=== PATIENT | male | born 1960 | race Caucasian/White ===

== ENCOUNTER → 2016-06-11 | Outpatient (CLI) | payer OTHER ==
[~2016-06-11] MED LIST: AMIO400T PO; BACITAB3 PO; BISA5TAB7 PO; CIPR500T3 PO; CIPR500T89 PO; FENT1DIS34 TD; FLAG500T PO; FLUC100T PO; GABA300C3 PO; LEVS0.123 SL; LORA0.5T PO; MEGA625S PO; MINO50CA27 PO; MULTCAP PO; MYLI40DR PO; NEUP480I2 SC; PACE200T PO; PENT500C PO; PRED20TA PO; PROC10TA PO; PSEU30TA3 PO; SALI0.9I2 IV; SENN8.6T10 PO; SIME125C PO; SIME80TA PO; TYLE325T5 PO; VITMTA PO; ZOFR8TAB PO; ZOSY1INJ5 IV; ZYVO100T PO; [UNRECOGNIZED DRUG - CODE] IV; [UNRECOGNIZED DRUG - CODE] IV; [UNRECOGNIZED DRUG - CODE] IV
[2016-06-11 11:21] LABS: BASO # 0.1 K/mm3 (0.0-0.2); BASO % 0.6 % (0.0-1.0); EOS # 0.5 K/mm3 (0.0-0.50); LYMPH % 10.5 % (24.0-44.0); MEAN CORPUSCULAR HGB CONC 33.4 g/dl (32.0-36.5); MEAN CORPUSCULAR VOLUME 86.9 fl (80.0-96.0); MONO # 0.5 K/mm3 (0.0-0.8); MONO % 5.3 % (0.0-5.0); NEUTROPHILS # 7.1 K/mm3 (1.8-7.7); NEUTROPHILS % 74.8 % (36.0-66.0); RED CELL DISTRIBUTION WIDTH 14.2 % (11.5-14.5); WHITE BLOOD COUNT 9.6 K/mm3 (4.0-10.0)
[2016-06-11 11:55] LABS: CARCINOEMBRYONIC ANTIGEN 6.3 NG/ML (<2.5)
[2016-06-11 12:06] LABS: ALBUMIN 3.9 GM/DL (3.2-5.2); ALBUMIN/GLOBULIN RATIO 1.11 (1.00-1.93); ALKALINE PHOSPHATASE 198 U/L (45-117); ALT/SGPT 49 U/L (12-78); ANION GAP 11 MEQ/L (8-16); AST/SGOT 49 U/L (15-37); BILIRUBIN,TOTAL 0.5 MG/DL (0.2-1.0); BLOOD UREA NITROGEN 12 MG/DL (7-18); CALCIUM LEVEL 9.7 MG/DL (8.5-10.1); CARBON DIOXIDE LEVEL 26 MEQ/L (21-32); CHLORIDE LEVEL 106 MEQ/L (98-107); CREATININE FOR GFR 1.01 MG/DL (0.70-1.30); GLOMERULAR FILTRATION RATE > 60.0 (>56); GLUCOSE, FASTING 90 MG/DL (70-105); POTASSIUM SERUM 3.9 MEQ/L (3.5-5.1); SODIUM LEVEL 143 MEQ/L (136-145); TOTAL PROTEIN 7.4 GM/DL (6.4-8.2)
== END ==
LOC: M LRY 09:38
PROVIDERS: ATTEND Internal Medicine Hematology & Oncology
DX: E87.8 Other disorders of electrolyte and fluid balance, not elsewhere classified (principal); E88.09 Other disorders of plasma-protein metabolism, not elsewhere classified; D70.1 Agranulocytosis secondary to cancer chemotherapy; D64.81 Anemia due to antineoplastic chemotherapy

== ENCOUNTER → 2016-07-04 | Outpatient (CLI) | payer OTHER ==
[~2016-07-04] MED LIST changes: +LORA-376 PO; -LORA0.5T PO; -PSEU30TA3 PO; +PSEU30TA4 PO
[2016-07-04 10:58] LABS: BLOOD UREA NITROGEN 20 MG/DL (7-18); CREATININE FOR GFR 1.11 MG/DL (0.70-1.30); GLOMERULAR FILTRATION RATE > 60.0 (>56)
== END ==
LOC: M LAB 10:14
PROVIDERS: ATTEND Thoracic Surgery (Cardiothoracic Vascular Surgery)
DX: Z01.818 Encounter for other preprocedural examination (principal); C26.0 Malignant neoplasm of intestinal tract, part unspecified

== ENCOUNTER 2016-07-08 09:26 | Emergency (ER) | payer OTHER ==
[2016-07-08 10:21] LABS: BASO % 0.4 % (0.0-1.0); EOS % 0.6 % (0.0-3.0); LARGE UNSTAINED CELL # 0.2 K/mm3 (0.0-0.4); LARGE UNSTAINED CELL % 2.2 % (0.0-4.0); LYMPH # 0.9 K/mm3 (1.5-4.5); LYMPH % 10.8 % (24.0-44.0); MEAN CORPUSCULAR VOLUME 87.4 fl (80.0-96.0); MONO # 0.5 K/mm3 (0.0-0.8); MONO % 5.8 % (0.0-5.0); NEUTROPHILS # 6.5 K/mm3 (1.8-7.7); NEUTROPHILS % 80.2 % (36.0-66.0); PLATELET COUNT, AUTOMATED 110 k/mm3 (150-450); RED CELL DISTRIBUTION WIDTH 15.6 % (11.5-14.5); WHITE BLOOD COUNT 8.1 K/mm3 (4.0-10.0)
[2016-07-08 10:23] LABS: INR 1.23
[2016-07-08 11:15] LABS: ALBUMIN 3.6 GM/DL (3.2-5.2); ALBUMIN/GLOBULIN RATIO 1.06 (1.00-1.93); ALKALINE PHOSPHATASE 231 U/L (45-117); ALT/SGPT 28 U/L (12-78); AMYLASE 187 U/L (25-115); ANION GAP 10 MEQ/L (8-16); AST/SGOT 36 U/L (15-37); BILIRUBIN,DIRECT 0.3 MG/DL (0.0-0.2); BLOOD UREA NITROGEN 17 MG/DL (7-18); CALCIUM LEVEL 8.6 MG/DL (8.5-10.1); CARBON DIOXIDE LEVEL 25 MEQ/L (21-32); CHLORIDE LEVEL 110 MEQ/L (98-107); CREATININE FOR GFR 0.92 MG/DL (0.70-1.30); GLOMERULAR FILTRATION RATE > 60.0 (>56); GLUCOSE, FASTING 86 MG/DL (70-105); POTASSIUM SERUM 3.4 MEQ/L (3.5-5.1); SODIUM LEVEL 145 MEQ/L (136-145)
[2016-07-08] MEDS ORDERED: ISOVUE-370 76% 100ML VIAL (Q9967) As Ordered ONE (13:05)
--- NOTE | 2016-07-08 14:02 | REP ---
CT abdomen and pelvis with IV but without oral contrast: History: Abdominal pain. History of colon malignancy. Comparison CT study is from March 06, 2016. CT contrast dose: 100 mL of Isovue [address] findings: Preliminary digital fashion adviser radiograph shows multiple large and small bowel loops without dilation. The lung bases show mild linear fibrosis but are otherwise clear. The left lobe of the liver is prominent in the right lobe is somewhat attenuated question early cirrhosis. The spleen is borderline measuring 12.6 cm in greatest diameter. There is an accessory splenule along its inferior margin. There are no large intra-abdominal collaterals. No adrenal mass is seen. There is however lymphadenopathy noted including a right retrocrural node measuring 1.0 x 1.5 cm which is a new finding. There is periportal celiac axis and periaortic and pericaval lymphadenopathy which is a new finding as well. The largest of these nodes include a pericaval node which measures 1.5 x 2.5 cm. There is a 9 mm nodule consistent with an implant in the subphrenic fat on the left. There is mild thickening of the pericolic gutter fat planes but this is improved considerably when compared with the March 06, 2016 prior study. The patient is status post right colectomy and anastomosis. There is relatively low density stool in the remaining colon. A few small bowel air-fluid levels are seen but no obstructive lesion is appreciated. No pancreatic abnormality is seen. The kidneys enhance symmetrically and are morphologically intact. There is a new partial wedge compression deformity in the L2 vertebral body which has occurred since the March 06, [address] study. No bony destructive lesion is appreciated. Impression: New retroperitoneal, upper abdominal, and retrocrural lymphadenopathy suspicious for metastatic disease. There is one presumed peritoneal implant in the left upper quadrant subphrenic region. The diffuse infiltrative peritoneal thickening and fluid seen at the time of the March 06, 2016 prior study has largely resolved. Interval development of partial collapse of the superior endplate of the L2 vertebral body is seen with healing sclerosis changes. Signed by Dennis Tenorio MD 07/08/2016 03:06 P
[2016-07-08 14:07] LABS: MEAN CORPUSCULAR HEMOGLOBIN 28.5 pg (27.0-33.0); MEAN CORPUSCULAR HGB CONC 33.1 g/dl (32.0-36.5); MEAN CORPUSCULAR VOLUME 86.2 fl (80.0-96.0); RED CELL DISTRIBUTION WIDTH 15.6 % (11.5-14.5); WHITE BLOOD COUNT 7.7 K/mm3 (4.0-10.0)
--- NOTE | 2016-07-08 14:27 | EDDOCDS ---
Physician Documentation [facility] Name: Matty Hernandez Age: 55 yrs Sex: Male : 1960 Arrival Date: 07/08/2016 Time: 09:26 Bed 11 Private MD: Last Gloria MD Disposition: 07/08/16 14:17 Discharged to Home/Self Care. Impression: Gastrointestinal hemorrhage, unspecified - not hemorrhage - rectal bleeding. - Condition is Stable. - Discharge Instructions: Gastrointestinal Bleeding, Gastrointestinal Bleeding, [id number]. - Medication Reconciliation, Local Pharmacy Hours form. - Follow up: Private Physician; When: Dr. Bernal . - Problem is new. - Symptoms are resolved. Historical: - Allergies: No known drug Allergies; - Home Meds: 1. Minocycline Oral once daily 2. Gabapentin Oral 3 times per day 3. Zantac 150 mg oral cap 2 times per day 4. Zofran Oral 3 times per day 5. chemotherapy regimen - PMHx: Cancer, Colon; Hernia; Hypertension; - PSHx: Ileostomy Construction; reversal of ileostomy; Exploratory lap; - Social history: Smoking status: Patient states former smoker of tobacco. No barriers to communication noted, The patient speaks fluent Lithuanian, Speaks appropriately for age. - Family history: Not pertinent. - : The pt / caregiver states he / she is not on anticoagulants. Home medication list is obtained from the patient. - Exposure Risk Screening:: None identified. Vital Signs: 07/08 09:27 BP 167 / 93; Pulse 71; Resp 16; Temp 96.0(O); Pulse Ox 99% on R/A; Weight 84.37 kg / elp 186 lbs (R); Height 6 ft. 0 in. (182.88 cm) (R); Pain 0/10; 10:14 BP 151 / 89 Supine; Pulse 63; kr3 10:14 BP 142 / 83 Sitting; Pulse 72; kr3 10:14 BP 141 / 89 Standing; Pulse 74; kr3 13:19 BP 157 / 85; Pulse 73; Resp 16; Temp 98(O); Pulse Ox 97% on R/A; Pain 0/10; kr3 14:24 BP 143 / 84; Pulse 76; Resp 16; Temp 99.2(O); Pulse Ox 98% on R/A; Pain 0/10; kr3 09:27 Body Mass Index 25.23 (84.37 kg, 182.88 cm) elp MDM: 09:43 Orthostatic VS ordered. sd1 09:43 Undress patient appropriately for examination ordered. sd1 09:43 IV Saline Lock ordered. sd1 09:45 Amylase Ordered. EDMS 09:45 Basic Metabolic Profile Ordered. EDMS 09:45 CBC with Diff Ordered. EDMS 09:45 Lipase Ordered. EDMS 09:45 Liver Profile Ordered. EDMS 09:45 Prothrombin Time Profile\E\INR Ordered. EDMS 09:45 NOTHING BY MOUTH+DIET ordered. EDMS 10:15 Misc. Nursing Order ordered. sd1 10:15 NS 0.9% 1000 ml IV at 150 mL/hr continuous ordered. sd1 10:40 CBC with Diff Reviewed. sd1 10:40 Prothrombin Time Profile\E\INR Reviewed. sd1 10:59 TYPE & SCREEN Ordered. EDMS 11:24 Amylase Reviewed. sd1 11:24 Basic Metabolic Profile Reviewed. sd1 11:24 Lipase Reviewed. sd1 11:24 Liver Profile Reviewed. sd1 11:24 TYPE & SCREEN Reviewed. sd1 12:20 ECG WITH READING ER PHYS+CARDIAG ordered. EDMS 12:25 TYPE & SCREEN Reviewed. sd1 12:37 Misc Automotive Product Specialist Order ordered. sd1 12:37 SOFT MECHANICAL+DIET ordered. EDMS 12:53 Misc Automotive Product Specialist Order complete. deg 12:57 CT ABD & PELVIS: IV Contrast Only Ordered. EDMS 13:34 [employer] ordered. sd1 13:39 [facility] Payment Agreement was scanned into [employer] and attached to record. jp5 13:39 Financial registration complete. jp5 13:43 [employer] complete. deg 13:44 COMPLETE BLOOD COUNT Ordered. EDMS 14:10 COMPLETE BLOOD COUNT Reviewed. sd1 14:10 CT ABD & PELVIS: IV Contrast Only Reviewed. sd1 Administered Medications: 10:27 Drug: NS 0.9% 1000 ml [sodium chloride 0.9 % intravenous solution] Route: IV; Rate: 150 kr3 mL/hr; Site: left hand; 14:24 Follow up: BP 143 / 84; Pulse 76 bpm; Resp 16 bpm; Temp 99.2 Oral; Pulse Ox 98% RA; kr3 Pain 0/10 Adult; IV Status: Completed infusion; IV Intake: 600ml Signatures: Dispatcher [employer] EDMS Mena Holley MD MD sd1 Hortencia Figueroa, Cold Press Loader Unit deg Geovanna GandaraRN RN ck1 Iliana Nino,RN RN kr3 Jere Khanna jp5 The chart was reviewed and I authenticate all verbal orders and agree with the evaluation and treatment provided.Corrections: (The following items were deleted from the chart) 10:59 09:45 TYPE & SCREEN+BBK ordered. EDMS EDMS Attachments: 13:39 [facility] Payment Agreement jp5 MTDD
--- NOTE | 2016-07-08 14:27 | EDDOCDS ---
Nurse's Notes [facility] Name: Matty Hernandez Age: 55 yrs Sex: Male : 1960 Arrival Date: 07/08/2016 Time: 09:26 Bed 11 Private MD: Last Gloria MD Diagnosis: Gastrointestinal hemorrhage, unspecified-not hemorrhage - rectal bleeding Presentation: 07/08 09:32 Presenting complaint: Patient states: Blood in stools since yesterday. 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 Adult Sepsis Screening: The patient does not have new or worsening altered mentation. Patient's respiratory rate is less than 22. Systolic blood pressure is greater than 100. Patient has a qSOFA score of 0- Negative Sepsis Screen. Suicide/Homicide risk assessment- the patient denies having any suicidal and/or homicidal ideations and does not present with any other emotional, behavioral or mental health complaints. Status: Patient is not a immigration services officer or dependent. Transition of care: patient was not received from another setting of care. 09:32 Acuity: LILIA Level 3 ck1 09:32 Method Of Arrival: Walkin/Carried/Asstd ck1 09:41 Red Flag criteria, patient assessed and taken directly to a bed. ck1 Triage Assessment: 09:37 General: Appears in no apparent distress, comfortable, Behavior is appropriate for age, ck1 cooperative. Pain: Denies pain. HIV screening NA for this visit Offered previously. Respiratory: Respiratory effort is unlabored, Respiratory pattern is regular. GI: Reports bloody stools Denies nausea, vomiting. Derm: Skin is intact, Skin is pink, warm & dry. Historical: - Allergies: No known drug Allergies; - Home Meds: 1. Minocycline Oral once daily 2. Gabapentin Oral 3 times per day 3. Zantac 150 mg oral cap 2 times per day 4. Zofran Oral 3 times per day 5. chemotherapy regimen - PMHx: Cancer, Colon; Hernia; Hypertension; - PSHx: Ileostomy Construction; reversal of ileostomy; Exploratory lap; - Social history: Smoking status: Patient states former smoker of tobacco. No barriers to communication noted, The patient speaks fluent Telugu, Speaks appropriately for age. - Family history: Not pertinent. - : The pt / caregiver states he / she is not on anticoagulants. Home medication list is obtained from the patient. - Exposure Risk Screening:: None identified. Screenin:35 Screening information is obtained from the patient. Fall risk: No risks identified. kr3 Assistance ADL's: requires no assistance with activities of daily living. Abuse/DV Screen: The patient / caregiver reports he/she is: not in a situation that causes fear, pain or injury. Nutritional screening: No deficits noted. Advance Directives: Currently, there is a health care proxy, sylvia. There is no Power of Fire Information Officer. home support is adequate. Assessment: 09:53 General: Appears in no apparent distress, comfortable, Behavior is cooperative. Pain: kr3 Denies pain. Neurological: Level of Consciousness is awake, alert. Respiratory: Respiratory effort is even, unlabored. GI: Reports gaseousness, blood in stool. Derm: Skin is pink, warm & dry. 10:15 Reassessment: orthostatic vital signs obtained with no complaints of dizziness or kr3 feeling lightheaded. 11:00 Adult Sepsis Screening: The patient does not have new or worsening altered mentation. kr3 Patient's respiratory rate is less than 22. Systolic blood pressure is greater than 100. Patient has a qSOFA score of 0- Negative Sepsis Screen. 11:35 Reassessment: Patient appears in no apparent distress at this time. reports is hungry. kr3 Pain: Denies pain. Respiratory: Respiratory effort is even, unlabored. 12:32 Reassessment: Patient appears in no apparent distress at this time. Pain: Denies pain. kr3 Respiratory: Respiratory effort is even, unlabored. GI: Denies nausea, vomiting. 13:10 Adult Sepsis Screening: The patient does not have new or worsening altered mentation. kr3 Patient's respiratory rate is less than 22. Systolic blood pressure is greater than 100. Patient has a qSOFA score of 0- Negative Sepsis Screen. 13:20 Reassessment: Patient appears in no apparent distress at this time. Patient denies pain kr3 at this time. having meal. 14:26 Reassessment: Patient appears in no apparent distress at this time. Patient denies pain kr3 at this time. GI: Denies nausea. Derm: Skin is normal. Vital Signs: 09:27 BP 167 / 93; Pulse 71; Resp 16; Temp 96.0(O); Pulse Ox 99% on R/A; Weight 84.37 kg (R); elp Height 6 ft. 0 in. (182.88 cm) (R); Pain 0/10; 10:14 BP 151 / 89 Supine; Pulse 63; kr3 10:14 BP 142 / 83 Sitting; Pulse 72; kr3 10:14 BP 141 / 89 Standing; Pulse 74; kr3 13:19 BP 157 / 85; Pulse 73; Resp 16; Temp 98(O); Pulse Ox 97% on R/A; Pain 0/10; kr3 14:24 BP 143 / 84; Pulse 76; Resp 16; Temp 99.2(O); Pulse Ox 98% on R/A; Pain 0/10; kr3 09:27 Body Mass Index 25.23 (84.37 kg, 182.88 cm) [facility] Vitals: 09:27 Log In Time: July 08, 2016 at 09:25. [facility] ED Course: 09:27 Patient visited by Rosalva Del Rio PCA. elp 09:27 Last Gloria is Private Physician. elp 09:27 Patient moved to Waiting elp 09:29 Patient moved to Pre RCE elp 09:33 Triage Initiated ck1 09:37 Iliana Nino,RN is Primary Nurse. ck1 09:37 Patient moved to 11 ck1 09:38 Mena Holley MD is Attending Physician. sd1 09:49 Patient visited by Mena Holley MD. sd1 09:53 The patient / caregiver is instructed regarding the plan of care and ED course. kr3 Accompanied by Family Member, Patient has correct armband on for positive identification. Placed in gown. Bed in low position. Call light in reach. 10:11 Amylase Sent. kr3 10:11 Basic Metabolic Profile Sent. kr3 10:11 CBC with Diff Sent. kr3 10:11 Lipase Sent. kr3 10:11 Prothrombin Time Profile\E\INR Sent. kr3 10:11 Liver Profile Sent. kr3 10:15 Inserted saline lock: 22 gauge in left hand The patient tolerated the procedure well. kr3 10:27 Patient visited by Iliana Nino,MARTHA. kr3 11:33 Patient visited by Iliana Nino,MARTHA. kr3 11:36 No procedures done that require assistance. kr3 12:30 EKG done. (by ED staff). Reviewed by Mena Holley MD. jrd 12:32 Patient visited by Iliana Nino,MARTHA. kr3 13:16 Patient visited by Catalino Carrillo PCA. jrd 13:39 [facility] Payment Agreement was scanned into [employer] and attached to record. jp5 14:00 COMPLETE BLOOD COUNT Sent. kr3 14:01 Patient visited by Iliana Nino RN. kr3 14:07 CT ABD & PELVIS: IV Contrast Only Returned. EDMS 14:25 Discontinued lock intact, bleeding controlled, pressure dressing applied, No kr3 redness/swelling at site. Administered Medications: 10:27 Drug: NS 0.9% 1000 ml [sodium chloride 0.9 % intravenous solution] Route: IV; Rate: 150 kr3 mL/hr; Site: left hand; 14:24 Follow up: BP 143 / 84; Pulse 76 bpm; Resp 16 bpm; Temp 99.2 Oral; Pulse Ox 98% RA; kr3 Pain 0/10 Adult; IV Status: Completed infusion; IV Intake: 600ml Intake: 14:24 IV: 600.00ml; Total: 600.00ml. kr3 Order Results: Lab Order: Amylase; SPEC'M 07/08/16 10:45 Test: AMYLASE; Value: 187; Range: 25-115; Abnormal: Above high normal; Units: U/L; Status: F Lab Order: Basic Metabolic Profile; SPEC'M 07/08/16 10:45 Test: GLUCOSE, FASTING; Value: 86; Range: 70-105; Units: MG/DL; Status: F Test: BLOOD UREA NITROGEN; Value: 17; Range: 7-18; Units: MG/DL; Status: F Test: CREATININE FOR GFR; Value: 0.92; Range: 0.70-1.30; Units: MG/DL; Status: F Test: GLOMERULAR FILTRATION RATE; Value: > 60.0; Range: >56; Status: F Test: SODIUM LEVEL; Value: 145; Range: 136-145; Units: MEQ/L; Status: F Test: POTASSIUM SERUM; Value: 3.4; Range: 3.5-5.1; Abnormal: Below low normal; Units: MEQ/L; Status: F Test: CHLORIDE LEVEL; Value: 110; Range: 98-107; Abnormal: Above high normal; Units: MEQ/L; Status: F Test: CARBON DIOXIDE LEVEL; Value: 25; Range: 21-32; Units: MEQ/L; Status: F Test: ANION GAP; Value: 10; Range: 8-16; Units: MEQ/L; Status: F Test: CALCIUM LEVEL; Value: 8.6; Range: 8.5-10.1; Units: MG/DL; Status: F Test Note: ; Units are mL/min/1.73 m2 Chronic Kidney Disease Staging per NKF: Stage I & II GFR >=60 Normal to Mildly Decreased Stage III GFR 30-59 Moderately Decreased Stage IV GFR 15-29 Severely Decreased Stage V GFR <15 Very Little GFR Left ESRD GFR <15 on WATER SOFTENER SERVICE SUPERVISOR Lab Order: CBC with Diff; SPEC'M 07/08/16 10:08 Test: WHITE BLOOD COUNT; Value: 8.1; Range: 4.0-10.0; Units: K/mm3; Status: F Test: RED BLOOD COUNT; Value: 3.83; Range: 4.30-6.10; Abnormal: Below low normal; Units: M/mm3; Status: F Test: HEMOGLOBIN; Value: 10.7; Range: 14.0-18.0; Abnormal: Below low normal; Units: g/dl; Status: F Test: HEMATOCRIT; Value: 33.5; Range: 42.0-52.0; Abnormal: Below low normal; Units: %; Status: F Test: MEAN CORPUSCULAR VOLUME; Value: 87.4; Range: 80.0-96.0; Units: fl; Status: F Test: MEAN CORPUSCULAR HEMOGLOBIN; Value: 28.0; Range: 27.0-33.0; Units: pg; Status: F Test: MEAN CORPUSCULAR HGB CONC; Value: 32.0; Range: 32.0-36.5; Units: g/dl; Status: F Test: RED CELL DISTRIBUTION WIDTH; Value: 15.6; Range: 11.5-14.5; Abnormal: Above high normal; Units: %; Status: F Test: PLATELET COUNT, AUTOMATED; Value: 110; Range: 150-450; Abnormal: Below low normal; Units: k/mm3; Status: F Test: NEUTROPHILS %; Value: 80.2; Range: 36.0-66.0; Abnormal: Above high normal; Units: %; Status: F Test: LYMPH %; Value: 10.8; Range: 24.0-44.0; Abnormal: Below low normal; Units: %; Status: F Test: MONO %; Value: 5.8; Range: 0.0-5.0; Abnormal: Above high normal; Units: %; Status: F Test: EOS %; Value: 0.6; Range: 0.0-3.0; Units: %; Status: F Test: BASO %; Value: 0.4; Range: 0.0-1.0; Units: %; Status: F Test: LARGE UNSTAINED CELL %; Value: 2.2; Range: 0.0-4.0; Units: %; Status: F Test: NEUTROPHILS #; Value: 6.5; Range: 1.8-7.7; Units: K/mm3; Status: F Test: LYMPH #; Value: 0.9; Range: 1.5-4.5; Abnormal: Below low normal; Units: K/mm3; Status: F Test: MONO #; Value: 0.5; Range: 0.0-0.8; Units: K/mm3; Status: F Test: EOS #; Value: 0.0; Range: 0.0-0.50; Units: K/mm3; Status: F Test: BASO #; Value: 0.0; Range: 0.0-0.2; Units: K/mm3; Status: F Test: LARGE UNSTAINED CELL #; Value: 0.2; Range: 0.0-0.4; Units: K/mm3; Status: F Lab Order: Lipase; SPEC' 07/08/16 10:45 Test: LIPASE; Value: 1217; Range: 73-393; Abnormal: Above high normal; Units: U/L; Status: F Lab Order: Liver Profile; SPEC' 07/08/16 10:45 Test: AST/SGOT; Value: 36; Range: 15-37; Units: U/L; Status: F Test: ALT/SGPT; Value: 28; Range: 12-78; Units: U/L; Status: F Test: ALKALINE PHOSPHATASE; Value: 231; Range: 45-117; Abnormal: Above high normal; Units: U/L; Status: F Test: BILIRUBIN,TOTAL; Value: 1.0; Range: 0.2-1.0; Units: MG/DL; Status: F Test: BILIRUBIN,DIRECT; Value: 0.3; Range: 0.0-0.2; Abnormal: Above high normal; Units: MG/DL; Status: F Test: TOTAL PROTEIN; Value: 7.0; Range: 6.4-8.2; Units: GM/DL; Status: F Test: ALBUMIN; Value: 3.6; Range: 3.2-5.2; Units: GM/DL; Status: F Test: ALBUMIN/GLOBULIN RATIO; Value: 1.06; Range: 1.00-1.93; Status: F Lab Order: Prothrombin Time Profile\E\INR; [facility]07/08/16 10:08 Test: PROTHROMBIN TIME; Value: 15.6; Range: 12.3-14.5; Abnormal: Above high normal; Units: SECONDS; Status: F Test: INR; Value: 1.23; Status: F Test Note: ; THERAPUTIC HUMAN INR VALUES INDICATIONS NORMAL RANGES PROPHYLAXIS/TREATMENT OF: VENOUS THROMBOSIS 2.0-3.0 PULMONARY EMBOLISM 2.0-3.0 PREVENTION OF SYSTEMIC EMBOLISM FROM: TISSUE HEART VALVES 2.0-3.0 ACUTE MYOCARDIAL INFARCTION 2.0-3.0 VALVULAR HEART DISEASE 2.0-3.0 ATRIAL FIBRILLATION 2.0-3.0 MECHANICAL VALVES(HIGH RISK) 2.5-3.5 RECURRENT MYOCARDIAL INFARCTION 2.5-3.5 Lab Order: TYPE & SCREEN; 07/08/16 10:39 Test: BLOOD TYPE; Value: O POS; Status: F Test: AB SCREEN (INDIRECT [place])GEL; Value: NEGATIVE; Status: F Lab Order: COMPLETE BLOOD COUNT; 07/08/16 13:58 Test: WHITE BLOOD COUNT; Value: 7.7; Range: 4.0-10.0; Units: K/mm3; Status: F Test: RED BLOOD COUNT; Value: 3.98; Range: 4.30-6.10; Abnormal: Below low normal; Units: M/mm3; Status: F Test: HEMOGLOBIN; Value: 11.4; Range: 14.0-18.0; Abnormal: Below low normal; Units: g/dl; Status: F Test: HEMATOCRIT; Value: 34.3; Range: 42.0-52.0; Abnormal: Below low normal; Units: %; Status: F Test: MEAN CORPUSCULAR VOLUME; Value: 86.2; Range: 80.0-96.0; Units: fl; Status: F Test: MEAN CORPUSCULAR HEMOGLOBIN; Value: 28.5; Range: 27.0-33.0; Units: pg; Status: F Test: MEAN CORPUSCULAR HGB CONC; Value: 33.1; Range: 32.0-36.5; Units: g/dl; Status: F Test: RED CELL DISTRIBUTION WIDTH; Value: 15.6; Range: 11.5-14.5; Abnormal: Above high normal; Units: %; Status: F Test: PLATELET COUNT, AUTOMATED; Value: 102; Range: 150-450; Abnormal: Below low normal; Units: k/mm3; Status: F Radiology Order: CT ABD & PELVIS: IV Contrast Only Test: CT ABD & PELVIS: IV Contrast Only REASON FOR EXAMINATION: Abdomen Pain; CT abdomen and pelvis with IV but without oral contrast:; ; History: Abdominal pain. History of colon malignancy. Comparison CT study is; from March 06, 2016.; ; CT contrast dose: 100 mL of Isovue 370 is administered intravenously.; ; CT findings: Preliminary digital wort extractor radiograph shows multiple large and small; bowel loops without dilation. The lung bases show mild linear fibrosis but are; otherwise clear. The left lobe of the liver is prominent in the right lobe is; somewhat attenuated question early cirrhosis. The spleen is borderline measuring; 12.6 cm in greatest diameter. There is an accessory splenule along its inferior; margin. There are no large intra-abdominal collaterals. No adrenal mass is; seen. There is however lymphadenopathy noted including a right retrocrural node; measuring 1.0 x 1.5 cm which is a new finding. There is periportal celiac axis; and periaortic and pericaval lymphadenopathy which is a new finding as well. The; largest of these nodes include a pericaval node which measures 1.5 x 2.5 cm.; There is a 9 mm nodule consistent with an implant in the subphrenic fat on the; left. There is mild thickening of the pericolic gutter fat planes but this is; improved considerably when compared with the March 06, 2016 prior study. The; patient is status post right colectomy and anastomosis. There is relatively low; density stool in the remaining colon. A few small bowel air-fluid levels are; seen but no obstructive lesion is appreciated.; ; No pancreatic abnormality is seen. The kidneys enhance symmetrically and are; morphologically intact. There is a new partial wedge compression deformity in; the L2 vertebral body which has occurred since the March 06, [address]; study. No bony destructive lesion is appreciated.; ; Impression:; ; New retroperitoneal, upper abdominal, and retrocrural lymphadenopathy suspicious; for metastatic disease. There is one presumed peritoneal implant in the left; upper quadrant subphrenic region. The diffuse infiltrative peritoneal thickening; and fluid seen at the time of the March 06, 2016 prior study has largely; resolved. Interval development of partial collapse of the superior endplate of; the L2 vertebral body is seen with healing sclerosis changes.; ; ; ; Unreviewed; Outcome: 13:20 CT Study completed. [facility] 14:17 Discharge ordered by Provider. sd1 14:25 Discharge Assessment: patient administered narcotics - no. The following High Risk [facility] Discharge criteria are identified: None. Discharged to home ambulatory, with family. Condition: stable. Discharge instructions given to patient, Instructed on discharge instructions, follow up and referral plans. Demonstrated understanding of instructions, Pt was receptive of discharge instructions/ teaching. Property sent home with patient. 14:26 Patient left the ED. 3 Signatures: Dispatcher [employer] EDMS Mena Holley MD MD sd1 Geovanna Gandara RN RN ck1 Iliana Nino RN RN kr3 Rosalva Del Rio, SOCIAL SECURITY ASSESSOR SOCIAL SECURITY ASSESSOR elCatalino Sorenson, SOCIAL SECURITY ASSESSOR SOCIAL SECURITY ASSESSOR Jere Blair jp5 Corrections: (The following items were deleted from the chart) 10:59 10:11 TYPE & SCREEN+BBK sent. [facility] EDNH MTDD
--- NOTE | 2016-07-09 09:18 | ECGEPIP ---
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
--- NOTE | 2016-07-10 15:27 | EDDOCDS ---
Physician Documentation [facility] Name: Matty Henrandez Age: 55 yrs Sex: Male : 1960 Arrival Date: 07/08/2016 Time: 09:26 Bed 11 Private MD: Last Gloria MD Disposition: 07/08/16 14:17 Discharged to Home/Self Care. Impression: Gastrointestinal hemorrhage, unspecified - not hemorrhage - rectal bleeding. - Condition is Stable. - Discharge Instructions: Gastrointestinal Bleeding, Gastrointestinal Bleeding, [id number]. - Medication Reconciliation, Local Pharmacy Hours form. - Follow up: Private Physician; When: Dr. Bernal . - Problem is new. - Symptoms are resolved. Historical: - Allergies: No known drug Allergies; - Home Meds: 1. Minocycline Oral once daily 2. Gabapentin Oral 3 times per day 3. Zantac 150 mg oral cap 2 times per day 4. Zofran Oral 3 times per day 5. chemotherapy regimen - PMHx: Cancer, Colon; Hernia; Hypertension; - PSHx: Ileostomy Construction; reversal of ileostomy; Exploratory lap; - Social history: Smoking status: Patient states former smoker of tobacco. No barriers to communication noted, The patient speaks fluent Japanese, Speaks appropriately for age. - Family history: Not pertinent. - : The pt / caregiver states he / she is not on anticoagulants. Home medication list is obtained from the patient. - Exposure Risk Screening:: None identified. Vital Signs: 07/08 09:27 BP 167 / 93; Pulse 71; Resp 16; Temp 96.0(O); Pulse Ox 99% on R/A; Weight 84.37 kg / elp 186 lbs (R); Height 6 ft. 0 in. (182.88 cm) (R); Pain 0/10; 10:14 BP 151 / 89 Supine; Pulse 63; kr3 10:14 BP 142 / 83 Sitting; Pulse 72; kr3 10:14 BP 141 / 89 Standing; Pulse 74; kr3 13:19 BP 157 / 85; Pulse 73; Resp 16; Temp 98(O); Pulse Ox 97% on R/A; Pain 0/10; kr3 14:24 BP 143 / 84; Pulse 76; Resp 16; Temp 99.2(O); Pulse Ox 98% on R/A; Pain 0/10; kr3 09:27 Body Mass Index 25.23 (84.37 kg, 182.88 cm) elp MDM: 09:43 Orthostatic VS ordered. sd1 09:43 Undress patient appropriately for examination ordered. sd1 09:43 IV Saline Lock ordered. sd1 09:45 Amylase Ordered. EDMS 09:45 Basic Metabolic Profile Ordered. EDMS 09:45 CBC with Diff Ordered. EDMS 09:45 Lipase Ordered. EDMS 09:45 Liver Profile Ordered. EDMS 09:45 Prothrombin Time Profile\E\INR Ordered. EDMS 09:45 NOTHING BY MOUTH+DIET ordered. EDMS 10:15 Misc. Nursing Order ordered. sd1 10:15 NS 0.9% 1000 ml IV at 150 mL/hr continuous ordered. sd1 10:40 CBC with Diff Reviewed. sd1 10:40 Prothrombin Time Profile\E\INR Reviewed. sd1 10:59 TYPE & SCREEN Ordered. EDMS 11:24 Amylase Reviewed. sd1 11:24 Basic Metabolic Profile Reviewed. sd1 11:24 Lipase Reviewed. sd1 11:24 Liver Profile Reviewed. sd1 11:24 TYPE & SCREEN Reviewed. sd1 12:20 ECG WITH READING ER PHYS+CARDIAG ordered. EDMS 12:25 TYPE & SCREEN Reviewed. sd1 12:37 Misc Development Disability Specialist Order ordered. sd1 12:37 SOFT MECHANICAL+DIET ordered. EDMS 12:53 Misc Development Disability Specialist Order complete. deg 12:57 CT ABD & PELVIS: IV Contrast Only Ordered. EDMS 13:34 [employer] ordered. sd1 13:39 [facility] [place] Agreement was scanned into [employer] and attached to record. jp5 13:39 Financial registration complete. jp5 13:43 [employer] complete. deg 13:44 COMPLETE BLOOD COUNT Ordered. EDMS 14:10 COMPLETE BLOOD COUNT Reviewed. sd1 14:10 CT ABD & PELVIS: IV Contrast Only Reviewed. sd1 07/09 10:31 T-Sheet-- Draft Copy was scanned into [employer] and attached to record. gb 10:31 ECG/EKG was scanned into [employer] and attached to record. gb 10:31 Radiology Report was scanned into [employer] and attached to record. gb Administered Medications: 07/08 10:27 Drug: NS 0.9% 1000 ml [sodium chloride 0.9 % intravenous solution] Route: IV; Rate: 150 kr3 mL/hr; Site: left hand; 14:24 Follow up: BP 143 / 84; Pulse 76 bpm; Resp 16 bpm; Temp 99.2 Oral; Pulse Ox 98% RA; kr3 Pain 0/10 Adult; IV Status: Completed infusion; IV Intake: 600ml Signatures: Dispatcher [employer] EDMS Mena Holley MD MD sd1 Hortencia Figueroa, Spring Repairer Helper Hand Unit deg Sarah Hook, Reg Reg gb Geovanna Gandara,RN RN ck1 Iliana Nino,RN RN kr3 Jere Khanna jp5 The chart was reviewed and I authenticate all verbal orders and agree with the evaluation and treatment provided.Corrections: (The following items were deleted from the chart) 10:59 09:45 TYPE & SCREEN+BBK ordered. EDMS EDMS Attachments: 13:39 [facility] Payment Agreement jp5 07/09 10:31 T-Sheet-- Draft Copy gb 10:31 ECG/EKG gb Chart Complete MTDD
--- NOTE | 2016-07-10 15:27 | EDDOCDS ---
Physician Documentation [facility] Name: Matty Hernandez Age: 55 yrs Sex: Male : 1960 Arrival Date: 07/08/2016 Time: 09:26 Bed 11 Private MD: Last Gloria MD Disposition: 07/08/16 14:17 Discharged to Home/Self Care. Impression: Gastrointestinal hemorrhage, unspecified - not hemorrhage - rectal bleeding. - Condition is Stable. - Discharge Instructions: Gastrointestinal Bleeding, Gastrointestinal Bleeding, [id number]. - Medication Reconciliation, Local Pharmacy Hours form. - Follow up: Private Physician; When: Dr. Bernal . - Problem is new. - Symptoms are resolved. Historical: - Allergies: No known drug Allergies; - Home Meds: 1. Minocycline Oral once daily 2. Gabapentin Oral 3 times per day 3. Zantac 150 mg oral cap 2 times per day 4. Zofran Oral 3 times per day 5. chemotherapy regimen - PMHx: Cancer, Colon; Hernia; Hypertension; - PSHx: Ileostomy Construction; reversal of ileostomy; Exploratory lap; - Social history: Smoking status: Patient states former smoker of tobacco. No barriers to communication noted, The patient speaks fluent Icelandic, Speaks appropriately for age. - Family history: Not pertinent. - : The pt / caregiver states he / she is not on anticoagulants. Home medication list is obtained from the patient. - Exposure Risk Screening:: None identified. Vital Signs: 07/08 09:27 BP 167 / 93; Pulse 71; Resp 16; Temp 96.0(O); Pulse Ox 99% on R/A; Weight 84.37 kg / elp 186 lbs (R); Height 6 ft. 0 in. (182.88 cm) (R); Pain 0/10; 10:14 BP 151 / 89 Supine; Pulse 63; kr3 10:14 BP 142 / 83 Sitting; Pulse 72; kr3 10:14 BP 141 / 89 Standing; Pulse 74; kr3 13:19 BP 157 / 85; Pulse 73; Resp 16; Temp 98(O); Pulse Ox 97% on R/A; Pain 0/10; kr3 14:24 BP 143 / 84; Pulse 76; Resp 16; Temp 99.2(O); Pulse Ox 98% on R/A; Pain 0/10; kr3 09:27 Body Mass Index 25.23 (84.37 kg, 182.88 cm) elp MDM: 09:43 Orthostatic VS ordered. sd1 09:43 Undress patient appropriately for examination ordered. sd1 09:43 IV Saline Lock ordered. sd1 09:45 Amylase Ordered. EDMS 09:45 Basic Metabolic Profile Ordered. EDMS 09:45 CBC with Diff Ordered. EDMS 09:45 Lipase Ordered. EDMS 09:45 Liver Profile Ordered. EDMS 09:45 Prothrombin Time Profile\E\INR Ordered. EDMS 09:45 NOTHING BY MOUTH+DIET ordered. EDMS 10:15 Misc. Nursing Order ordered. sd1 10:15 NS 0.9% 1000 ml IV at 150 mL/hr continuous ordered. sd1 10:40 CBC with Diff Reviewed. sd1 10:40 Prothrombin Time Profile\E\INR Reviewed. sd1 10:59 TYPE & SCREEN Ordered. EDMS 11:24 Amylase Reviewed. sd1 11:24 Basic Metabolic Profile Reviewed. sd1 11:24 Lipase Reviewed. sd1 11:24 Liver Profile Reviewed. sd1 11:24 TYPE & SCREEN Reviewed. sd1 12:20 ECG WITH READING ER PHYS+CARDIAG ordered. EDMS 12:25 TYPE & SCREEN Reviewed. sd1 12:37 Misc Power Brake Rebuilder Order ordered. sd1 12:37 SOFT MECHANICAL+DIET ordered. EDMS 12:53 Misc Power Brake Rebuilder Order complete. deg 12:57 CT ABD & PELVIS: IV Contrast Only Ordered. EDMS 13:34 [employer] ordered. sd1 13:39 [facility] [place] Payment Agreement was scanned into [employer] and attached to record. jp5 13:39 Financial registration complete. jp5 13:43 [employer] complete. deg 13:44 COMPLETE BLOOD COUNT Ordered. EDMS 14:10 COMPLETE BLOOD COUNT Reviewed. sd1 14:10 CT ABD & PELVIS: IV Contrast Only Reviewed. sd1 07/09 10:31 T-Sheet-- Draft Copy was scanned into [employer] and attached to record. gb 10:31 ECG/EKG was scanned into [employer] and attached to record. gb 10:31 Radiology Report was scanned into [employer] and attached to record. gb Administered Medications: 07/08 10:27 Drug: NS 0.9% 1000 ml [sodium chloride 0.9 % intravenous solution] Route: IV; Rate: 150 kr3 mL/hr; Site: left hand; 14:24 Follow up: BP 143 / 84; Pulse 76 bpm; Resp 16 bpm; Temp 99.2 Oral; Pulse Ox 98% RA; kr3 Pain 0/10 Adult; IV Status: Completed infusion; IV Intake: 600ml Signatures: Dispatcher [employer] EDMS Mena Holley MD MD sd1 Hortencia Figueroa, Hand Tube Bender Unit deg Sarah Hook, Reg Reg gb Geovanna Gandara,RN RN ck1 Iliana Nino,RN RN kr3 Jere Khanna jp5 The chart was reviewed and I authenticate all verbal orders and agree with the evaluation and treatment provided.Corrections: (The following items were deleted from the chart) 10:59 09:45 TYPE & SCREEN+BBK ordered. EDMS EDMS Attachments: 13:39 [facility] Payment Agreement jp5 07/09 10:31 T-Sheet-- Draft Copy gb 10:31 ECG/EKG gb Chart Complete MTDD
--- NOTE | 2016-07-10 15:27 | EDDOCDS ---
Nurse's Notes [facility] Name: Ki Hernandez Age: 55 yrs Sex: Male : 1960 Arrival Date: 07/08/2016 Time: 09:26 Bed 11 Private MD: Last Gloria MD Diagnosis: Gastrointestinal hemorrhage, unspecified-not hemorrhage - rectal bleeding Presentation: 07/08 09:32 Presenting complaint: Patient states: Blood in stools since yesterday. 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 Adult Sepsis Screening: The patient does not have new or worsening altered mentation. Patient's respiratory rate is less than 22. Systolic blood pressure is greater than 100. Patient has a qSOFA score of 0- Negative Sepsis Screen. Suicide/Homicide risk assessment- the patient denies having any suicidal and/or homicidal ideations and does not present with any other emotional, behavioral or mental health complaints. Status: Patient is not a business services representative or dependent. Transition of care: patient was not received from another setting of care. 09:32 Acuity: LILIA Level 3 ck1 09:32 Method Of Arrival: Walkin/Carried/Asstd ck1 09:41 Red Flag criteria, patient assessed and taken directly to a bed. ck1 Triage Assessment: 09:37 General: Appears in no apparent distress, comfortable, Behavior is appropriate for age, ck1 cooperative. Pain: Denies pain. HIV screening NA for this visit Offered previously. Respiratory: Respiratory effort is unlabored, Respiratory pattern is regular. GI: Reports bloody stools Denies nausea, vomiting. Derm: Skin is intact, Skin is pink, warm & dry. Historical: - Allergies: No known drug Allergies; - Home Meds: 1. Minocycline Oral once daily 2. Gabapentin Oral 3 times per day 3. Zantac 150 mg oral cap 2 times per day 4. Zofran Oral 3 times per day 5. chemotherapy regimen - PMHx: Cancer, Colon; Hernia; Hypertension; - PSHx: Ileostomy Construction; reversal of ileostomy; Exploratory lap; - Social history: Smoking status: Patient states former smoker of tobacco. No barriers to communication noted, The patient speaks fluent Indonesian, Speaks appropriately for age. - Family history: Not pertinent. - : The pt / caregiver states he / she is not on anticoagulants. Home medication list is obtained from the patient. - Exposure Risk Screening:: None identified. Screenin:35 Screening information is obtained from the patient. Fall risk: No risks identified. kr3 Assistance ADL's: requires no assistance with activities of daily living. Abuse/DV Screen: The patient / caregiver reports he/she is: not in a situation that causes fear, pain or injury. Nutritional screening: No deficits noted. Advance Directives: Currently, there is a health care proxy, sylvia. There is no Power of Manager Banking. home support is adequate. Assessment: 09:53 General: Appears in no apparent distress, comfortable, Behavior is cooperative. Pain: kr3 Denies pain. Neurological: Level of Consciousness is awake, alert. Respiratory: Respiratory effort is even, unlabored. GI: Reports gaseousness, blood in stool. Derm: Skin is pink, warm & dry. 10:15 Reassessment: orthostatic vital signs obtained with no complaints of dizziness or kr3 feeling lightheaded. 11:00 Adult Sepsis Screening: The patient does not have new or worsening altered mentation. kr3 Patient's respiratory rate is less than 22. Systolic blood pressure is greater than 100. Patient has a qSOFA score of 0- Negative Sepsis Screen. 11:35 Reassessment: Patient appears in no apparent distress at this time. reports is hungry. kr3 Pain: Denies pain. Respiratory: Respiratory effort is even, unlabored. 12:32 Reassessment: Patient appears in no apparent distress at this time. Pain: Denies pain. kr3 Respiratory: Respiratory effort is even, unlabored. GI: Denies nausea, vomiting. 13:10 Adult Sepsis Screening: The patient does not have new or worsening altered mentation. kr3 Patient's respiratory rate is less than 22. Systolic blood pressure is greater than 100. Patient has a qSOFA score of 0- Negative Sepsis Screen. 13:20 Reassessment: Patient appears in no apparent distress at this time. Patient denies pain kr3 at this time. having meal. 14:26 Reassessment: Patient appears in no apparent distress at this time. Patient denies pain kr3 at this time. GI: Denies nausea. Derm: Skin is normal. Vital Signs: 09:27 BP 167 / 93; Pulse 71; Resp 16; Temp 96.0(O); Pulse Ox 99% on R/A; Weight 84.37 kg (R); elp Height 6 ft. 0 in. (182.88 cm) (R); Pain 0/10; 10:14 BP 151 / 89 Supine; Pulse 63; kr3 10:14 BP 142 / 83 Sitting; Pulse 72; kr3 10:14 BP 141 / 89 Standing; Pulse 74; kr3 13:19 BP 157 / 85; Pulse 73; Resp 16; Temp 98(O); Pulse Ox 97% on R/A; Pain 0/10; kr3 14:24 BP 143 / 84; Pulse 76; Resp 16; Temp 99.2(O); Pulse Ox 98% on R/A; Pain 0/10; kr3 09:27 Body Mass Index 25.23 (84.37 kg, 182.88 cm) [facility] Vitals: 09:27 Log In Time: July 08, 2016 at 09:25. [facility] ED Course: 09:27 Patient visited by Rosalva Del Rio PCA. elp 09:27 Last Gloria is Private Physician. elp 09:27 Patient moved to Waiting elp 09:29 Patient moved to Pre RCE elp 09:33 Triage Initiated ck1 09:37 Iliana Nino,RN is Primary Nurse. ck1 09:37 Patient moved to 11 ck1 09:38 Mena Holley MD is Attending Physician. sd1 09:49 Patient visited by Mena Holley MD. sd1 09:53 The patient / caregiver is instructed regarding the plan of care and ED course. kr3 Accompanied by Family Member, Patient has correct armband on for positive identification. Placed in gown. Bed in low position. Call light in reach. 10:11 Amylase Sent. kr3 10:11 Basic Metabolic Profile Sent. kr3 10:11 CBC with Diff Sent. kr3 10:11 Lipase Sent. kr3 10:11 Prothrombin Time Profile\E\INR Sent. kr3 10:11 Liver Profile Sent. kr3 10:15 Inserted saline lock: 22 gauge in left hand The patient tolerated the procedure well. kr3 10:27 Patient visited by Iliana Nino,MARTHA. kr3 11:33 Patient visited by Iliana Nino,MARTHA. kr3 11:36 No procedures done that require assistance. kr3 12:30 EKG done. (by ED staff). Reviewed by Mena Holley MD. jrd 12:32 Patient visited by Ilaina Nino,MARTHA. kr3 13:16 Patient visited by Catalino Carrillo PCA. jrd 13:39 [facility] [place] was scanned into [employer] and attached to record. jp5 14:00 COMPLETE BLOOD COUNT Sent. kr3 14:01 Patient visited by Iliana Nino RN. kr3 14:07 CT ABD & PELVIS: IV Contrast Only Returned. EDMS 14:25 Discontinued lock intact, bleeding controlled, pressure dressing applied, No kr3 redness/swelling at site. 15:46 CT ABD & PELVIS: IV Contrast Only Returned. EDMS 02 09:54 EKG-ADULT Returned. EDMS 10:31 T-Sheet-- Draft Copy was scanned into [employer] and attached to record. gb 10:31 ECG/EKG was scanned into [employer] and attached to record. gb 10:31 Radiology Report was scanned into [employer] and attached to record. gb Administered Medications: 07/08 10:27 Drug: NS 0.9% 1000 ml [sodium chloride 0.9 % intravenous solution] Route: IV; Rate: 150 kr3 mL/hr; Site: left hand; 14:24 Follow up: BP 143 / 84; Pulse 76 bpm; Resp 16 bpm; Temp 99.2 Oral; Pulse Ox 98% RA; kr3 Pain 0/10 Adult; IV Status: Completed infusion; IV Intake: 600ml Intake: 14:24 IV: 600.00ml; Total: 600.00ml. kr3 Order Results: Lab Order: Amylase; SPEC'M 07/08/16 10:45 Test: AMYLASE; Value: 187; Range: 25-115; Abnormal: Above high normal; Units: U/L; Status: F Lab Order: Basic Metabolic Profile; SPEC'M 07/08/16 10:45 Test: GLUCOSE, FASTING; Value: 86; Range: 70-105; Units: MG/DL; Status: F Test: BLOOD UREA NITROGEN; Value: 17; Range: 7-18; Units: MG/DL; Status: F Test: CREATININE FOR GFR; Value: 0.92; Range: 0.70-1.30; Units: MG/DL; Status: F Test: GLOMERULAR FILTRATION RATE; Value: > 60.0; Range: >56; Status: F Test: SODIUM LEVEL; Value: 145; Range: 136-145; Units: MEQ/L; Status: F Test: POTASSIUM SERUM; Value: 3.4; Range: 3.5-5.1; Abnormal: Below low normal; Units: MEQ/L; Status: F Test: CHLORIDE LEVEL; Value: 110; Range: 98-107; Abnormal: Above high normal; Units: MEQ/L; Status: F Test: CARBON DIOXIDE LEVEL; Value: 25; Range: 21-32; Units: MEQ/L; Status: F Test: ANION GAP; Value: 10; Range: 8-16; Units: MEQ/L; Status: F Test: CALCIUM LEVEL; Value: 8.6; Range: 8.5-10.1; Units: MG/DL; Status: F Test Note: ; Units are mL/min/1.73 m2 Chronic Kidney Disease Staging per NKF: Stage I & II GFR >=60 Normal to Mildly Decreased Stage III GFR 30-59 Moderately Decreased Stage IV GFR 15-29 Severely Decreased Stage V GFR <15 Very Little GFR Left ESRD GFR <15 on ADOBE LAYER Lab Order: CBC with Diff; SPEC'M 07/08/16 10:08 Test: WHITE BLOOD COUNT; Value: 8.1; Range: 4.0-10.0; Units: K/mm3; Status: F Test: RED BLOOD COUNT; Value: 3.83; Range: 4.30-6.10; Abnormal: Below low normal; Units: M/mm3; Status: F Test: HEMOGLOBIN; Value: 10.7; Range: 14.0-18.0; Abnormal: Below low normal; Units: g/dl; Status: F Test: HEMATOCRIT; Value: 33.5; Range: 42.0-52.0; Abnormal: Below low normal; Units: %; Status: F Test: MEAN CORPUSCULAR VOLUME; Value: 87.4; Range: 80.0-96.0; Units: fl; Status: F Test: MEAN CORPUSCULAR HEMOGLOBIN; Value: 28.0; Range: 27.0-33.0; Units: pg; Status: F Test: MEAN CORPUSCULAR HGB CONC; Value: 32.0; Range: 32.0-36.5; Units: g/dl; Status: F Test: RED CELL DISTRIBUTION WIDTH; Value: 15.6; Range: 11.5-14.5; Abnormal: Above high normal; Units: %; Status: F Test: PLATELET COUNT, AUTOMATED; Value: 110; Range: 150-450; Abnormal: Below low normal; Units: k/mm3; Status: F Test: NEUTROPHILS %; Value: 80.2; Range: 36.0-66.0; Abnormal: Above high normal; Units: %; Status: F Test: LYMPH %; Value: 10.8; Range: 24.0-44.0; Abnormal: Below low normal; Units: %; Status: F Test: MONO %; Value: 5.8; Range: 0.0-5.0; Abnormal: Above high normal; Units: %; Status: F Test: EOS %; Value: 0.6; Range: 0.0-3.0; Units: %; Status: F Test: BASO %; Value: 0.4; Range: 0.0-1.0; Units: %; Status: F Test: LARGE UNSTAINED CELL %; Value: 2.2; Range: 0.0-4.0; Units: %; Status: F Test: NEUTROPHILS #; Value: 6.5; Range: 1.8-7.7; Units: K/mm3; Status: F Test: LYMPH #; Value: 0.9; Range: 1.5-4.5; Abnormal: Below low normal; Units: K/mm3; Status: F Test: MONO #; Value: 0.5; Range: 0.0-0.8; Units: K/mm3; Status: F Test: EOS #; Value: 0.0; Range: 0.0-0.50; Units: K/mm3; Status: F Test: BASO #; Value: 0.0; Range: 0.0-0.2; Units: K/mm3; Status: F Test: LARGE UNSTAINED CELL #; Value: 0.2; Range: 0.0-0.4; Units: K/mm3; Status: F Lab Order: Lipase; SPEC'M 07/08/16 10:45 Test: LIPASE; Value: 1217; Range: 73-393; Abnormal: Above high normal; Units: U/L; Status: F Lab Order: Liver Profile; [facility] 07/08/16 10:45 Test: AST/SGOT; Value: 36; Range: 15-37; Units: U/L; Status: F Test: ALT/SGPT; Value: 28; Range: 12-78; Units: U/L; Status: F Test: ALKALINE PHOSPHATASE; Value: 231; Range: 45-117; Abnormal: Above high normal; Units: U/L; Status: F Test: BILIRUBIN,TOTAL; Value: 1.0; Range: 0.2-1.0; Units: MG/DL; Status: F Test: BILIRUBIN,DIRECT; Value: 0.3; Range: 0.0-0.2; Abnormal: Above high normal; Units: MG/DL; Status: F Test: TOTAL PROTEIN; Value: 7.0; Range: 6.4-8.2; Units: GM/DL; Status: F Test: ALBUMIN; Value: 3.6; Range: 3.2-5.2; Units: GM/DL; Status: F Test: ALBUMIN/GLOBULIN RATIO; Value: 1.06; Range: 1.00-1.93; Status: F Lab Order: Prothrombin Time Profile\E\INR; [facility] 07/08/16 10:08 Test: PROTHROMBIN TIME; Value: 15.6; Range: 12.3-14.5; Abnormal: Above high normal; Units: SECONDS; Status: F Test: INR; Value: 1.23; Status: F Test Note: ; THERAPUTIC HUMAN INR VALUES INDICATIONS NORMAL RANGES PROPHYLAXIS/TREATMENT OF: VENOUS THROMBOSIS 2.0-3.0 PULMONARY EMBOLISM 2.0-3.0 PREVENTION OF SYSTEMIC EMBOLISM FROM: TISSUE HEART VALVES 2.0-3.0 ACUTE MYOCARDIAL INFARCTION 2.0-3.0 VALVULAR HEART DISEASE 2.0-3.0 ATRIAL FIBRILLATION 2.0-3.0 MECHANICAL VALVES(HIGH RISK) 2.5-3.5 RECURRENT MYOCARDIAL INFARCTION 2.5-3.5 Lab Order: TYPE & SCREEN; [facility] 07/08/16 10:39 Test: BLOOD TYPE; Value: O POS; Status: F Test: AB SCREEN (INDIRECT [place])GEL; Value: NEGATIVE; Status: F Lab Order: COMPLETE BLOOD COUNT; [facility] 07/08/16 13:58 Test: WHITE BLOOD COUNT; Value: 7.7; Range: 4.0-10.0; Units: K/mm3; Status: F Test: RED BLOOD COUNT; Value: 3.98; Range: 4.30-6.10; Abnormal: Below low normal; Units: M/mm3; Status: F Test: HEMOGLOBIN; Value: 11.4; Range: 14.0-18.0; Abnormal: Below low normal; Units: g/dl; Status: F Test: HEMATOCRIT; Value: 34.3; Range: 42.0-52.0; Abnormal: Below low normal; Units: %; Status: F Test: MEAN CORPUSCULAR VOLUME; Value: 86.2; Range: 80.0-96.0; Units: fl; Status: F Test: MEAN CORPUSCULAR HEMOGLOBIN; Value: 28.5; Range: 27.0-33.0; Units: pg; Status: F Test: MEAN CORPUSCULAR HGB CONC; Value: 33.1; Range: 32.0-36.5; Units: g/dl; Status: F Test: RED CELL DISTRIBUTION WIDTH; Value: 15.6; Range: 11.5-14.5; Abnormal: Above high normal; Units: %; Status: F Test: PLATELET COUNT, AUTOMATED; Value: 102; Range: 150-450; Abnormal: Below low normal; Units: k/mm3; Status: F Radiology Order: EKG-ADULT Test: EKG-ADULT REASON FOR EXAMINATION: gi bleed; Stationary ECG Study; [facility] - ED; ; Test Date: 2016-07-08; Pat Name: KI HERNANDEZ Department:; Room: -; 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: [employer]us; : 1960 Requested By: Mena Holley; Order Number: [id number] Reading MD: Mena Holley; Measurements; Intervals [place]; Rate: 72 P: 63; DC: 152 QRS: -43; QRSD: 97 T: 26; QT: 419; QTc: 460; Interpretive Statements; SINUS RHYTHM; MARKED LEFT AXIS DEVIATION; MODERATE VOLTAGE CRITERIA FOR LVH, CONSIDER NORMAL VARIANT; PROLONGED ATC; DECREASED RATE 03/16/16; Electronically Signed On 2-3-2017 9:18:19 EST by Mena Holley; Radiology Order: CT ABD & PELVIS: IV Contrast Only Test: CT ABD & PELVIS: IV Contrast Only REASON FOR EXAMINATION: Abdomen Pain; CT abdomen and pelvis with IV but without oral contrast:; ; History: Abdominal pain. History of colon malignancy. Comparison CT study is; from March 06, 2016.; ; CT contrast dose: 100 mL of Isovue 370 is administered intravenously.; ; CT findings: Preliminary digital blast furnace helper radiograph shows multiple large and small; bowel loops without dilation. The lung bases show mild linear fibrosis but are; otherwise clear. The left lobe of the liver is prominent in the right lobe is; somewhat attenuated question early cirrhosis. The spleen is borderline measuring; 12.6 cm in greatest diameter. There is an accessory splenule along its inferior; margin. There are no large intra-abdominal collaterals. No adrenal mass is; seen. There is however lymphadenopathy noted including a right retrocrural node; measuring 1.0 x 1.5 cm which is a new finding. There is periportal celiac axis; and periaortic and pericaval lymphadenopathy which is a new finding as well. The; largest of these nodes include a pericaval node which measures 1.5 x 2.5 cm.; There is a 9 mm nodule consistent with an implant in the subphrenic fat on the; left. There is mild thickening of the pericolic gutter fat planes but this is; improved considerably when compared with the March 06, 2016 prior study. The; patient is status post right colectomy and anastomosis. There is relatively low; density stool in the remaining colon. A few small bowel air-fluid levels are; seen but no obstructive lesion is appreciated.; ; No pancreatic abnormality is seen. The kidneys enhance symmetrically and are; morphologically intact. There is a new partial wedge compression deformity in; the L2 vertebral body which has occurred since the March 06, [address]; study. No bony destructive lesion is appreciated.; ; Impression:; ; New retroperitoneal, upper abdominal, and retrocrural lymphadenopathy suspicious; for metastatic disease. There is one presumed peritoneal implant in the left; upper quadrant subphrenic region. The diffuse infiltrative peritoneal thickening; and fluid seen at the time of the March 06, 2016 prior study has largely; resolved. Interval development of partial collapse of the superior endplate of; the L2 vertebral body is seen with healing sclerosis changes.; ; ; Signed by; Dennis Tenorio MD 07/08/2016 03:06 P; Outcome: 13:20 CT Study completed. kr3 14:17 Discharge ordered by Provider. sd1 14:25 Discharge Assessment: patient administered narcotics - no. The following High Risk kr3 Discharge criteria are identified: None. Discharged to home ambulatory, with family. Condition: stable. Discharge instructions given to patient, Instructed on discharge instructions, follow up and referral plans. Demonstrated understanding of instructions, Pt was receptive of discharge instructions/ teaching. Property sent home with patient. 14:26 Patient left the ED. kr3 Signatures: Dispatcher [employer] EDMS Mena Holley MD MD sd1 Sarah Hook, Daniele Reg Geovanna Nayak,RN RN ck1 Iliana Nino RN RN kr3 Rosalva Del Rio, MANAGER LAUNDRY MANAGER LAUNDRY Catalino Bucio, MANAGER LAUNDRY MANAGER LAUNDRY Jere Blair jp5 Corrections: (The following items were deleted from the chart) 10:59 10:11 TYPE & SCREEN+BBK sent. kr3 EDMS Chart Complete HAWAD
== END 2016-07-08 14:26 | disposition home or self-care (01) ==
LOC: M ED 09:26
DX: K64.9 Unspecified hemorrhoids (principal); C18.9 Malignant neoplasm of colon, unspecified; I10 Essential (primary) hypertension; Z79.899 Other long term (current) drug therapy; Z87.891 Personal history of nicotine dependence
CPT/HCPCS: 36415; 74177; 80048; 80076; 82150; 83690; 85025; 85027; 85610; 86850; 86900; 86901; 93005; 96360; 96361; 99284; Q9967

== ENCOUNTER 2016-10-01 17:49 | Emergency (ER) | payer OTHER ==
[~2016-10-01] VITALS: Ht 182.9 cm; Wt 88.9 kg
[~2016-10-01 17:49] MED LIST changes: +GABA-282 PO; -GABA300C3 PO
[2016-10-01 17:50] VITALS: BP 159/89
[2016-10-01] MEDS ORDERED: REGL10TA6 PO (18:03)
[2016-10-01] MEDS ORDERED: VALA1TAB PO (18:03)
[2016-10-01] MEDS ORDERED: VITA100072 PO (18:03)
[2016-10-01] MEDS ORDERED: PEG6SYR SC (18:03)
[2016-10-01] MEDS ORDERED: PROT1TAB2 PO (18:03)
[2016-10-01] MEDS ORDERED: SILVER NITRATE APPLICATOR As Ordered ONE (18:23)
== END 2016-10-01 19:05 | disposition home or self-care (01) ==
LOC: M ED 18:45
DX: R04.0 Epistaxis (principal)

== ENCOUNTER → 2016-10-03 | Outpatient (CLI) | payer OTHER ==
[~2016-10-03] MED LIST changes: +PEG6SYR SC; +PROT1TAB2 PO; +REGL10TA6 PO; +VALA1TAB PO; +VITA100072 PO
[2016-10-03 13:25] LABS: BASO % 0.4 % (0.0-1.0); EOS % 0.6 % (0.0-3.0); LYMPH # 0.9 K/mm3 (1.5-4.5); LYMPH % 25.9 % (24.0-44.0); MEAN CORPUSCULAR HEMOGLOBIN 31.4 pg (27.0-33.0); MEAN CORPUSCULAR HGB CONC 34.9 g/dl (32.0-36.5); MONO # 0.6 K/mm3 (0.0-0.8); MONO % 16.8 % (0.0-5.0); NEUTROPHILS # 1.6 K/mm3 (1.8-7.7); NEUTROPHILS % 48.1 % (36.0-66.0); RED CELL DISTRIBUTION WIDTH 19.3 % (11.5-14.5); WHITE BLOOD COUNT 3.4 K/mm3 (4.0-10.0)
[2016-10-03 13:26] LABS: ALBUMIN 3.6 GM/DL (3.2-5.2); ALBUMIN/GLOBULIN RATIO 1.24 (1.00-1.93); ALKALINE PHOSPHATASE 180 U/L (45-117); ALT/SGPT 34 U/L (12-78); ANION GAP 11 MEQ/L (8-16); AST/SGOT 58 U/L (15-37); BILIRUBIN,TOTAL 1.6 MG/DL (0.2-1.0); BLOOD UREA NITROGEN 14 MG/DL (7-18); CALCIUM LEVEL 9.1 MG/DL (8.5-10.1); CARBON DIOXIDE LEVEL 25 MEQ/L (21-32); CHLORIDE LEVEL 107 MEQ/L (98-107); CREATININE FOR GFR 1.27 MG/DL (0.70-1.30); GLOMERULAR FILTRATION RATE > 60.0 (>56); GLUCOSE, FASTING 120 MG/DL (70-105); POTASSIUM SERUM 3.2 MEQ/L (3.5-5.1); SODIUM LEVEL 143 MEQ/L (136-145); TOTAL PROTEIN 6.5 GM/DL (6.4-8.2)
[2016-10-05 10:10] LABS: CARCINOEMBRYONIC ANTIGEN 9.2 NG/ML (<2.5)
== END ==
LOC: M WUC 10:28
PROVIDERS: ATTEND Internal Medicine Hematology & Oncology
DX: C18.0 Malignant neoplasm of cecum (principal); E87.8 Other disorders of electrolyte and fluid balance, not elsewhere classified; D64.81 Anemia due to antineoplastic chemotherapy

== ENCOUNTER → 2016-10-24 | Outpatient (CLI) | payer OTHER ==
[2016-10-24 17:34] LABS: BASO % 0.5 % (0.0-1.0); EOS # 0.1 K/mm3 (0.0-0.50); EOS % 2.9 % (0.0-3.0); LYMPH # 0.9 K/mm3 (1.5-4.5); LYMPH % 18.5 % (24.0-44.0); MEAN CORPUSCULAR HEMOGLOBIN 30.6 pg (27.0-33.0); MEAN CORPUSCULAR HGB CONC 32.2 g/dl (32.0-36.5); MONO # 0.5 K/mm3 (0.0-0.8); MONO % 11.1 % (0.0-5.0); NEUTROPHILS # 2.8 K/mm3 (1.8-7.7); NEUTROPHILS % 64.7 % (36.0-66.0); RED CELL DISTRIBUTION WIDTH 17.9 % (11.5-14.5); WHITE BLOOD COUNT 4.4 K/mm3 (4.0-10.0)
[2016-10-24 17:37] LABS: ALBUMIN 3.1 GM/DL (3.2-5.2); ALBUMIN/GLOBULIN RATIO 0.94 (1.00-1.93); ALKALINE PHOSPHATASE 181 U/L (45-117); ALT/SGPT 21 U/L (12-78); ANION GAP 9 MEQ/L (8-16); AST/SGOT 38 U/L (15-37); BILIRUBIN,TOTAL 0.7 MG/DL (0.2-1.0); BLOOD UREA NITROGEN 16 MG/DL (7-18); CALCIUM LEVEL 9.1 MG/DL (8.5-10.1); CARBON DIOXIDE LEVEL 26 MEQ/L (21-32); CHLORIDE LEVEL 108 MEQ/L (98-107); CREATININE FOR GFR 1.09 MG/DL (0.70-1.30); GLOMERULAR FILTRATION RATE > 60.0 (>56); GLUCOSE, FASTING 131 MG/DL (70-105); SODIUM LEVEL 143 MEQ/L (136-145); TOTAL PROTEIN 6.4 GM/DL (6.4-8.2)
[2016-10-26 09:50] LABS: CARCINOEMBRYONIC ANTIGEN 7.1 NG/ML (<2.5)
== END ==
LOC: M WUC 10:55
PROVIDERS: ATTEND Internal Medicine Hematology & Oncology
DX: E87.8 Other disorders of electrolyte and fluid balance, not elsewhere classified (principal); D64.81 Anemia due to antineoplastic chemotherapy; C18.9 Malignant neoplasm of colon, unspecified

== ENCOUNTER 2016-10-27 19:17 | Emergency (ER) | payer OTHER ==
[~2016-10-27] VITALS: Ht 182.9 cm; Wt 83.5 kg
[2016-10-27 22:18] LABS: BASO % 0.2 % (0.0-1.0); EOS # 0.1 K/mm3 (0.0-0.50); LARGE UNSTAINED CELL # 0.2 K/mm3 (0.0-0.4); LARGE UNSTAINED CELL % 3.6 % (0.0-4.0); LYMPH # 0.9 K/mm3 (1.5-4.5); LYMPH % 13.2 % (24.0-44.0); MEAN CORPUSCULAR HEMOGLOBIN 29.7 pg (27.0-33.0); MEAN CORPUSCULAR VOLUME 92.7 fl (80.0-96.0); MONO # 0.7 K/mm3 (0.0-0.8); MONO % 10.7 % (0.0-5.0); NEUTROPHILS # 4.7 K/mm3 (1.8-7.7); NEUTROPHILS % 70.4 % (36.0-66.0); PLATELET COUNT, AUTOMATED 325 k/mm3 (150-450); WHITE BLOOD COUNT 6.6 K/mm3 (4.0-10.0)
[2016-10-27 22:42] LABS: ALKALINE PHOSPHATASE 168 U/L (45-117); ALT/SGPT 18 U/L (12-78); ANION GAP 8 MEQ/L (8-16); AST/SGOT 38 U/L (15-37); BILIRUBIN,DIRECT 0.3 MG/DL (0.0-0.2); BILIRUBIN,TOTAL 0.8 MG/DL (0.2-1.0); BLOOD UREA NITROGEN 15 MG/DL (7-18); CALCIUM LEVEL 8.4 MG/DL (8.5-10.1); CARBON DIOXIDE LEVEL 25 MEQ/L (21-32); CHLORIDE LEVEL 107 MEQ/L (98-107); CREATININE FOR GFR 1.16 MG/DL (0.70-1.30); GLOMERULAR FILTRATION RATE > 60.0 (>56); GLUCOSE, FASTING 89 MG/DL (70-105); SODIUM LEVEL 140 MEQ/L (136-145)
[2016-10-28 00:59] VITALS: BP 125/86
--- NOTE | 2016-10-28 06:49 | REP ---
Clinical: S I R S. Comparison: 03/14/2016. Technique: PA and lateral. Findings: Hilar fullness is compatible with bilateral hilar and mediastinal adenopathy. Trace basilar atelectasis cannot be excluded. Previously noted left lower lobe infiltrate has resolved. No definite acute effusion or pneumothorax. Skeletal structures intact. Cardiac silhouette is normal. [id number] with tip in the SVC. Impression: Suspected mediastinal and hilar adenopathy. Cannot exclude trace basilar atelectasis. Signed by Lambert Sanchez MD 10/28/2016 06:40 A
--- NOTE | 2016-10-29 08:01 | ED PDOC ---
Post-Departure Follow-Up raidology report faxde to Mena Hansen MD October 29, 2016 08:01
== END 2016-10-28 01:02 | disposition home or self-care (01) ==
LOC: M ED 22:20
DX: B34.9 Viral infection, unspecified (principal)

== ENCOUNTER → 2016-11-11 | Outpatient (CLI) | payer OTHER ==
[~2016-11-11] MED LIST changes: +MIRA3350 PO
== END ==
LOC: M WUC 13:12
PROVIDERS: ATTEND Internal Medicine Hematology & Oncology
DX: C18.9 Malignant neoplasm of colon, unspecified (principal)

== ENCOUNTER → 2016-11-18 | Outpatient (CLI) | payer OTHER ==
[2016-11-18 14:26] LABS: ABG BASE EXCESS -1.9 (-2.0-2.0); ABG HCO3 20.9 MEQ/L (22.0-26.0); ABG PARTIAL PRESSURE CO2 28.4 mmHg (35.0-45.0); ABG PARTIAL PRESSURE O2 98.4 mmHg (75.0-100.0); ABG STANDARD HCO3 22.9 MEQ/L (22.0-26.0); ABG TOTAL CO2 21.8 MEQ/L (22.0-29.0); ABG pH (ARTERIAL) 7.485 UNITS (7.350-7.450)
[2016-11-18 14:29] LABS: MEAN CORPUSCULAR HEMOGLOBIN 28.8 pg (27.0-33.0); MEAN CORPUSCULAR HGB CONC 31.2 g/dl (32.0-36.5); MEAN CORPUSCULAR VOLUME 92.5 fl (80.0-96.0); RED CELL DISTRIBUTION WIDTH 16.3 % (11.5-14.5); WHITE BLOOD COUNT 9.1 K/mm3 (4.0-10.0)
[2016-11-18 14:42] LABS: INR 1.22
[2016-11-18 14:45] LABS: ANION GAP 8 MEQ/L (8-16); BLOOD UREA NITROGEN 16 MG/DL (7-18); CALCIUM LEVEL 8.9 MG/DL (8.5-10.1); CARBON DIOXIDE LEVEL 25 MEQ/L (21-32); CHLORIDE LEVEL 104 MEQ/L (98-107); GLOMERULAR FILTRATION RATE > 60.0 (>56); GLUCOSE, FASTING 136 MG/DL (70-105); POTASSIUM SERUM 4.1 MEQ/L (3.5-5.1); SODIUM LEVEL 137 MEQ/L (136-145)
[2016-11-18 15:33] LABS: MICROSCOPIC INDICATED? MAN YES (NO)
[2016-11-18 15:51] LABS: BACTERIA, URINE SMALL AMOUNT; SQUAMOUS EPITHELIAL CELL URINE SMALL AMOUNT /hpf (SMALL AMT)
[2016-11-18 15:52] LABS: MICROSCOPIC EXAM PERFORMED
--- NOTE | 2016-11-18 17:14 | ECGEPIP ---
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 : 1960 Requested By: Óscar Ny Order Number: [id number] Reading MD: Natanael Miller Measurements Intervals [place] Rate: 84 P: 67 MD: 156 QRS: -40 QRSD: 94 T: 41 QT: 352 QTc: 418 Interpretive Statements Normal sinus rhythm Left axis deviation Nonspecific T-wave abnormalities No significant change since prior tracing of 07/08/2016 Electronically Signed On 11-18-2016 17:13:56 EDT by Natanael Miller
--- NOTE | 2016-11-19 02:10 | REP ---
Clinical: Mediastinoscopy Comparison: 10/27/2016 . Technique: PA and lateral. Findings: The mediastinum and cardiac silhouette are stable and hilar/mediastinal adenopathy is again suggested. Diffuse chronic interstitial changes are again noted and similar to prior examination. Superimposed elements of atelectasis as well as perihilar consolidation cannot be excluded. No effusion. No pneumothorax. Skeletal structures stable. [id number] identified with tip in the SVC. Impression: 1. Perihilar opacities suggesting adenopathy and possible atelectasis/consolidation. 2. Diffuse chronic interstitial changes. Signed by Lambert Sanchez MD 11/19/2016 02:02 A
== END ==
LOC: M LAB 13:52
PROVIDERS: ATTEND Thoracic Surgery (Cardiothoracic Vascular Surgery)
DX: Z01.818 Encounter for other preprocedural examination (principal); R22.2 Localized swelling, mass and lump, trunk

== ENCOUNTER → 2016-11-22 | Day surgery (SDC) | payer OTHER ==
[~2016-11-22] VITALS: Ht 182.9 cm; Wt 88.5 kg
[~2016-11-22] MED LIST changes: +BUPIVACAINE LIPOSOME/PF 1.3% 20 ML VIAL (13.3MG/ML)(EXPAREL) As Ordered ONE; +CETACAINE SPRAY 20GM (FLOOR STOCK) As Ordered ONE; +EPINEPHrine 1MG/10ML SYRINGE 1.5IN As Ordered ONE; +EPINEPHrine INJ 1 MG/ML 1ML AMP As Ordered ONE; +LIDOCAINE 2% INJ 100 MG/5 ML SDV (FOR ANES.) As Ordered ONE; +LR 1,000 ML IV ONE; +LR 1,000 ML IV SCH; +METOCLOPRAMIDE INJ 10MG/2ML VIAL (J2765) IV PRN; +MIDAZOLAM INJ 2 MG/2 ML VIAL (J2250) As Ordered ONE; +MUPIROCIN 2% OINT 22 GM TUBE TOP ONE; +ONDANSETRON 4MG/2ML VIAL (J2405) As Ordered ONE; +ONDANSETRON 4MG/2ML VIAL (J2405) IV PRN; +PERCOCET 5MG/325MG TAB PO PRN; +PHENYLephrine HCL 500 MCG/5 ML (100MCG/ML) SYRINGE (J2370) As Ordered ONE; +PROPOFOL 200 MG/20 ML VIAL As Ordered ONE; +ROCURONIUM BROMIDE 50 MG/5 ML VIAL As Ordered ONE; +THROMBIN SOLN 20,000 UNITS KIT As Ordered ONE; +dexameTHASONE 4 MG/ML 1ML VIAL (J1100) As Ordered ONE; +fentaNYL 100 MCG/2 ML INJECTION (J3010) IV PRN; +fentaNYL 250 MCG/5 ML INJECTION (J3010) As Ordered ONE
[2016-11-22 17:20] VITALS: BP 145/85
== END | disposition home or self-care (01) ==
LOC: M SDC 11:10
PROVIDERS: ATTEND Thoracic Surgery (Cardiothoracic Vascular Surgery)
DX: C77.1 Secondary and unspecified malignant neoplasm of intrathoracic lymph nodes (principal); C18.2 Malignant neoplasm of ascending colon; C78.5 Secondary malignant neoplasm of large intestine and rectum; J43.1 Panlobular emphysema; T88.59XD Other complications of anesthesia, subsequent encounter; D64.9 Anemia, unspecified; Z79.899 Other long term (current) drug therapy; Z87.891 Personal history of nicotine dependence; Z92.21 Personal history of antineoplastic chemotherapy
CPT/HCPCS: 31622; 36415; 39402; 71010; 86850; 86900; 86901; 88305; J0690; J1100; J2250; J2370; J2405; J3010

== ENCOUNTER → 2016-11-29 | Outpatient (CLI) | payer OTHER ==
[~2016-11-29] MED LIST changes: -BUPIVACAINE LIPOSOME/PF 1.3% 20 ML VIAL (13.3MG/ML)(EXPAREL) As Ordered ONE; -CETACAINE SPRAY 20GM (FLOOR STOCK) As Ordered ONE; -EPINEPHrine 1MG/10ML SYRINGE 1.5IN As Ordered ONE; -EPINEPHrine INJ 1 MG/ML 1ML AMP As Ordered ONE; -LIDOCAINE 2% INJ 100 MG/5 ML SDV (FOR ANES.) As Ordered ONE; -LR 1,000 ML IV ONE; -LR 1,000 ML IV SCH; -METOCLOPRAMIDE INJ 10MG/2ML VIAL (J2765) IV PRN; -MIDAZOLAM INJ 2 MG/2 ML VIAL (J2250) As Ordered ONE; -MUPIROCIN 2% OINT 22 GM TUBE TOP ONE; -ONDANSETRON 4MG/2ML VIAL (J2405) As Ordered ONE; -ONDANSETRON 4MG/2ML VIAL (J2405) IV PRN; -PERCOCET 5MG/325MG TAB PO PRN; -PHENYLephrine HCL 500 MCG/5 ML (100MCG/ML) SYRINGE (J2370) As Ordered ONE; -PROPOFOL 200 MG/20 ML VIAL As Ordered ONE; -ROCURONIUM BROMIDE 50 MG/5 ML VIAL As Ordered ONE; -THROMBIN SOLN 20,000 UNITS KIT As Ordered ONE; -dexameTHASONE 4 MG/ML 1ML VIAL (J1100) As Ordered ONE; -fentaNYL 100 MCG/2 ML INJECTION (J3010) IV PRN; -fentaNYL 250 MCG/5 ML INJECTION (J3010) As Ordered ONE
== END ==
LOC: M WUC 11:38
PROVIDERS: ATTEND Internal Medicine Hematology & Oncology
DX: C18.9 Malignant neoplasm of colon, unspecified (principal)

== ENCOUNTER → 2016-11-29 | Outpatient (CLI) | payer OTHER ==
--- NOTE | 2016-11-29 12:15 | REP ---
Clinical: Follow up. Biopsy. Technique: PA and lateral. Comparison: 11/22/2016. Findings: Kaohet-R-Ryhu identified in stable position with tip in the SVC. Bilateral hilar/mediastinal adenopathy appears unchanged. Lung nunez demonstrate chronic interstitial changes. No acute consolidation, effusion, or obvious pneumothorax. Cardiac silhouette is normal. Skeletal structures are intact. Impression: Stable findings. No obvious pneumothorax. Signed by Lambert Sanchez MD 11/29/2016 10:24 A
== END ==
LOC: M SMT 10:01
PROVIDERS: ATTEND Thoracic Surgery (Cardiothoracic Vascular Surgery)
DX: J43.1 Panlobular emphysema (principal)

== ENCOUNTER → 2016-12-23 | Outpatient (CLI) | payer OTHER ==
[~2016-12-23] MED LIST changes: +ATEN25TA PO; +AZIT500T2 PO; +BACITAB PO; -BACITAB3 PO; +CIPR-249 PO; -CIPR500T89 PO; +FURO20TA2 PO; +LONS0.27 PO; -LORA-376 PO; +LORA0.5T11 PO; +MEGE400SUS PO; -MINO50CA27 PO; +MINO50CA3 PO; +OXYC-141 PO; +OXYC-517 PO; +OXYC1SOL3 PO; +PRED10TA2 PO; +PSEU30TA21 PO; -PSEU30TA4 PO; +SENN1TAB10 PO; -SENN8.6T10 PO; +SPIR50TA2 PO; -VALA1TAB PO; +VALA1TAB2 PO; +VITA500T PO; +VORI200T5 PO
[2016-12-23 19:17] LABS: ALBUMIN 3.6 GM/DL (3.2-5.2); ALBUMIN/GLOBULIN RATIO 1.13 (1.00-1.93); BILIRUBIN,TOTAL 0.4 MG/DL (0.2-1.0); CALCIUM LEVEL 9.3 MG/DL (8.5-10.1); CREATININE FOR GFR 1.36 MG/DL (0.70-1.30); GLOMERULAR FILTRATION RATE 57.3 (>56); POTASSIUM SERUM 3.6 MEQ/L (3.5-5.1); TOTAL PROTEIN 6.8 GM/DL (6.4-8.2)
[2016-12-23 19:20] LABS: BASO % 0.3 % (0.0-1.0); EOS % 0.5 % (0.0-3.0); LYMPH % 20.4 % (24.0-44.0); MEAN CORPUSCULAR HEMOGLOBIN 29.6 pg (27.0-33.0); MEAN CORPUSCULAR HGB CONC 32.5 g/dl (32.0-36.5); MEAN CORPUSCULAR VOLUME 90.9 fl (80.0-96.0); MONO # 0.3 K/mm3 (0.0-0.8); MONO % 6.6 % (0.0-5.0); NEUTROPHILS # 3.2 K/mm3 (1.8-7.7); NEUTROPHILS % 67.5 % (36.0-66.0); RED CELL DISTRIBUTION WIDTH 17.1 % (11.5-14.5); WHITE BLOOD COUNT 4.8 K/mm3 (4.0-10.0)
[2016-12-24 08:00] LABS: CARCINOEMBRYONIC ANTIGEN 6.8 NG/ML (<2.5)
== END ==
LOC: M WUC 13:50
PROVIDERS: ATTEND Internal Medicine Hematology & Oncology
DX: C18.9 Malignant neoplasm of colon, unspecified (principal); E87.8 Other disorders of electrolyte and fluid balance, not elsewhere classified; D64.81 Anemia due to antineoplastic chemotherapy

== ENCOUNTER → 2017-01-05 | Outpatient (CLI) | payer OTHER ==
[2017-01-05 17:23] LABS: ALBUMIN 4.1 GM/DL (3.2-5.2); ALBUMIN/GLOBULIN RATIO 1.58 (1.00-1.93); BILIRUBIN,TOTAL 0.5 MG/DL (0.2-1.0); CREATININE FOR GFR 1.31 MG/DL (0.70-1.30); GLOMERULAR FILTRATION RATE 59.8 (>56); POTASSIUM SERUM 3.7 MEQ/L (3.5-5.1); TOTAL PROTEIN 6.7 GM/DL (6.4-8.2)
[2017-01-05 18:27] LABS: BASO % 0.2 % (0.0-1.0); EOS % 0.4 % (0.0-3.0); LYMPH # 0.9 K/mm3 (1.5-4.5); LYMPH % 17.3 % (24.0-44.0); MEAN CORPUSCULAR HEMOGLOBIN 29.9 pg (27.0-33.0); MEAN CORPUSCULAR HGB CONC 32.5 g/dl (32.0-36.5); MONO # 0.3 K/mm3 (0.0-0.8); MONO % 7.1 % (0.0-5.0); NEUTROPHILS # 3.5 K/mm3 (1.8-7.7); NEUTROPHILS % 72.9 % (36.0-66.0); RED CELL DISTRIBUTION WIDTH 18.8 % (11.5-14.5); WHITE BLOOD COUNT 4.8 K/mm3 (4.0-10.0)
== END ==
LOC: M WUC 11:02
PROVIDERS: ATTEND Internal Medicine Hematology & Oncology
DX: E87.8 Other disorders of electrolyte and fluid balance, not elsewhere classified (principal); D64.81 Anemia due to antineoplastic chemotherapy

== ENCOUNTER → 2017-01-18 | Outpatient (CLI) | payer OTHER ==
[2017-01-18 14:42] LABS: CARCINOEMBRYONIC ANTIGEN 6.2 NG/ML (<2.5)
[2017-01-18 15:00] LABS: BASO % 0.4 % (0.0-1.0); EOS % 0.5 % (0.0-3.0); LYMPH # 0.6 K/mm3 (1.5-4.5); LYMPH % 13.3 % (24.0-44.0); MEAN CORPUSCULAR HEMOGLOBIN 29.5 pg (27.0-33.0); MEAN CORPUSCULAR HGB CONC 32.6 g/dl (32.0-36.5); MEAN CORPUSCULAR VOLUME 90.6 fl (80.0-96.0); MONO # 0.2 K/mm3 (0.0-0.8); MONO % 4.2 % (0.0-5.0); NEUTROPHILS # 3.4 K/mm3 (1.8-7.7); NEUTROPHILS % 80.5 % (36.0-66.0); RED CELL DISTRIBUTION WIDTH 19.4 % (11.5-14.5); WHITE BLOOD COUNT 4.2 K/mm3 (4.0-10.0)
[2017-01-18 15:05] LABS: ALBUMIN 3.8 GM/DL (3.2-5.2); ALBUMIN/GLOBULIN RATIO 1.36 (1.00-1.93); ALKALINE PHOSPHATASE 168 U/L (45-117); ALT/SGPT 42 U/L (12-78); ANION GAP 11 MEQ/L (8-16); AST/SGOT 21 U/L (15-37); BILIRUBIN,TOTAL 0.7 MG/DL (0.2-1.0); BLOOD UREA NITROGEN 29 MG/DL (7-18); CARBON DIOXIDE LEVEL 22 MEQ/L (21-32); CHLORIDE LEVEL 108 MEQ/L (98-107); GLOMERULAR FILTRATION RATE > 60.0 (>56); GLUCOSE, FASTING 105 MG/DL (70-105); POTASSIUM SERUM 3.9 MEQ/L (3.5-5.1); SODIUM LEVEL 141 MEQ/L (136-145); TOTAL PROTEIN 6.6 GM/DL (6.4-8.2)
== END ==
LOC: M WUC 10:48
PROVIDERS: ATTEND Internal Medicine Hematology & Oncology
DX: E87.8 Other disorders of electrolyte and fluid balance, not elsewhere classified (principal); D64.81 Anemia due to antineoplastic chemotherapy

== ENCOUNTER 2017-01-19 07:35 | Day surgery (SDC) | payer OTHER ==
[~2017-01-19] VITALS: Ht 182.9 cm; Wt 83.5 kg
[~2017-01-19 07:35] MED LIST changes: +ACETAMINOPHEN 325 MG TAB PO PRN; -ATEN25TA PO; -AZIT500T2 PO; +BSS with VANC/TOB/EPI for EYE CASES IR ONE; +CYCLOPENTOLATE 2% OPHTH SOLN 2ML BTL OS ONE; -FURO20TA2 PO; +HEALON DUET (HEALON 10MG/ML 0.55ML & HEALON ENDOCOAT 30MG/ML 0.85ML) As Ordered ONE; +LIDOCAINE 1% SDV 5 ML VIAL As Ordered ONE; +LIDOCAINE 3.5 % 1ML OPHTH TOPICAL GEL OU ONE; -LONS0.27 PO; -MEGE400SUS PO; +MOXIFLOXACIN IN BSS 0.25MG/0.25ML INTRACAMERAL INJ (OR EYE ONLY)(J2280) As Ordered ONE; +OFLOXACIN 0.3 % (OCUFLOX) OPTH SOL 5ML OS ONE; -OXYC-517 PO; -OXYC1SOL3 PO; +PHENYLEPHRINE 2.5% OPHTH SOL 2ML OS ONE; +POVIDONE-IODINE 5% OPHTH PREP SOL 30ML As Ordered ONE; -PRED10TA2 PO; +PROPARACAINE 0.5% OPHTH SOL 15ML OS PRN; -SPIR50TA2 PO; +TRIAMCINOLONE PRES FR 40 MG/ML 1ML(TRIESENCE)(OR EYE ONLY)(J3300 PER 1MG) As Ordered ONE; +TROPICAMIDE 1% OPHTH SOLN 2ML OS ONE; -VORI200T5 PO
[2017-01-19] MEDS ORDERED: LIDOCAINE 1% SDV 5 ML VIAL SQ PRN (07:45)
[2017-01-19] MEDS ORDERED: LR 1,000 ML IV ONE (07:45)
[2017-01-19] MEDS ORDERED: MIDAZOLAM INJ 2 MG/2 ML VIAL (J2250) As Ordered ONE (08:37)
[2017-01-19] MEDS ORDERED: fentaNYL 100 MCG/2 ML INJECTION (J3010) As Ordered ONE (08:37)
[2017-01-19] MEDS ORDERED: AcetaZOLAMIDE 500 MG ER CAP As Ordered ONE (09:33)
[2017-01-19 09:35] VITALS: BP 128/76
[2017-01-19] MEDS ORDERED: TRIMETHOBENZAMIDE 300 MG CAP PO PRN (09:45)
[2017-01-19] MEDS ORDERED: KETOROLAC 0.5% OPHTH SOLN OS ONE (09:45)
[2017-01-19] MEDS ORDERED: AcetaZOLAMIDE 500 MG ER CAP PO ONE (09:45)
[2017-03-04] MEDS ORDERED: OXYC1SOL3 PO (11:24)
[2017-03-04] MEDS ORDERED: OXYC-517 PO (11:38)
== END 2017-01-19 09:51 | disposition home or self-care (01) ==
LOC: M SDC 07:35
PROVIDERS: ATTEND Ophthalmology
DX: H25.9 Unspecified age-related cataract (principal); D64.9 Anemia, unspecified; Z85.038 Personal history of other malignant neoplasm of large intestine; Z92.21 Personal history of antineoplastic chemotherapy; Z87.891 Personal history of nicotine dependence; J44.9 Chronic obstructive pulmonary disease, unspecified; Z79.899 Other long term (current) drug therapy
CPT/HCPCS: 66984; 67515; J2250; J2280; J3010; J3300

== ENCOUNTER → 2017-02-22 | Outpatient (CLI) | payer OTHER ==
[~2017-02-22] MED LIST changes: -ACETAMINOPHEN 325 MG TAB PO PRN; +ATEN25TA PO; +AZIT500T2 PO; -BSS with VANC/TOB/EPI for EYE CASES IR ONE; -CYCLOPENTOLATE 2% OPHTH SOLN 2ML BTL OS ONE; +FURO20TA2 PO; -HEALON DUET (HEALON 10MG/ML 0.55ML & HEALON ENDOCOAT 30MG/ML 0.85ML) As Ordered ONE; -LIDOCAINE 1% SDV 5 ML VIAL As Ordered ONE; -LIDOCAINE 3.5 % 1ML OPHTH TOPICAL GEL OU ONE; +LONS0.27 PO; +MEGE400SUS PO; -MOXIFLOXACIN IN BSS 0.25MG/0.25ML INTRACAMERAL INJ (OR EYE ONLY)(J2280) As Ordered ONE; -OFLOXACIN 0.3 % (OCUFLOX) OPTH SOL 5ML OS ONE; +OXYC-517 PO; +OXYC1SOL3 PO; -PHENYLEPHRINE 2.5% OPHTH SOL 2ML OS ONE; -POVIDONE-IODINE 5% OPHTH PREP SOL 30ML As Ordered ONE; +PRED10TA2 PO; -PROPARACAINE 0.5% OPHTH SOL 15ML OS PRN; +SPIR50TA2 PO; -TRIAMCINOLONE PRES FR 40 MG/ML 1ML(TRIESENCE)(OR EYE ONLY)(J3300 PER 1MG) As Ordered ONE; -TROPICAMIDE 1% OPHTH SOLN 2ML OS ONE; +VORI200T5 PO
== END ==
LOC: M WUC 08:22
PROVIDERS: ATTEND Internal Medicine Hematology & Oncology
DX: C18.0 Malignant neoplasm of cecum (principal)

== ENCOUNTER 2017-02-27 13:04 | Emergency (ER) | payer OTHER ==
[~2017-02-27] VITALS: Ht 182.9 cm; Wt 87.3 kg
[~2017-02-27 13:04] MED LIST changes: -ATEN25TA PO; -AZIT500T2 PO; -FURO20TA2 PO; -LONS0.27 PO; -MEGE400SUS PO; -OXYC-517 PO; -OXYC1SOL3 PO; -PRED10TA2 PO; -SPIR50TA2 PO; -VORI200T5 PO
[2017-02-27] MEDS ORDERED: VORI200T5 PO (13:29)
[2017-02-27] MEDS ORDERED: ATEN25TA PO (13:29)
[2017-02-27] MEDS ORDERED: PRED20TA PO (13:29)
[2017-02-27] MEDS ORDERED: AZIT500T2 PO (13:29)
[2017-02-27 15:07] LABS: ALT/SGPT 54 U/L (12-78); ANION GAP 10 MEQ/L (8-16); AST/SGOT 43 U/L (15-37); BLOOD UREA NITROGEN 30 MG/DL (7-18); CALCIUM LEVEL 8.6 MG/DL (8.5-10.1); CARBON DIOXIDE LEVEL 22 MEQ/L (21-32); CHLORIDE LEVEL 114 MEQ/L (98-107); CREATININE FOR GFR 0.95 MG/DL (0.70-1.30); GLOMERULAR FILTRATION RATE > 60.0 (>56); GLUCOSE, FASTING 127 MG/DL (70-105); POTASSIUM SERUM 4.6 MEQ/L (3.5-5.1); SODIUM LEVEL 146 MEQ/L (136-145)
[2017-02-27 15:08] LABS: ALBUMIN 2.3 GM/DL (3.2-5.2); ALBUMIN/GLOBULIN RATIO 0.85 (1.00-1.93); ALKALINE PHOSPHATASE 133 U/L (45-117); BILIRUBIN,DIRECT 0.1 MG/DL (0.0-0.2); BILIRUBIN,TOTAL 0.4 MG/DL (0.2-1.0); THYROXINE (T4) 5.2 UG/DL (4.5-12.0)
[2017-02-27 15:21] LABS: BASO % 0.1 % (0.0-1.0); EOS % 0.2 % (0.0-3.0); LARGE UNSTAINED CELL # 0.1 K/mm3 (0.0-0.4); LARGE UNSTAINED CELL % 1.1 % (0.0-4.0); LYMPH # 0.6 K/mm3 (1.5-4.5); LYMPH % 4.6 % (24.0-44.0); MEAN CORPUSCULAR HEMOGLOBIN 32.4 pg (27.0-33.0); MEAN CORPUSCULAR HGB CONC 32.7 g/dl (32.0-36.5); MEAN CORPUSCULAR VOLUME 99.1 fl (80.0-96.0); MONO # 0.9 K/mm3 (0.0-0.8); MONO % 7.2 % (0.0-5.0); NEUTROPHILS # 11.1 K/mm3 (1.8-7.7); NEUTROPHILS % 86.8 % (36.0-66.0); PLATELET COUNT, AUTOMATED 215 k/mm3 (150-450); WHITE BLOOD COUNT 12.8 K/mm3 (4.0-10.0)
[2017-02-27] MEDS ORDERED: FUROSEMIDE 20 MG TAB PO ONE (16:00)
[2017-02-27 16:23] VITALS: BP 121/67
--- NOTE | 2017-02-27 16:23 | REP ---
Bilateral lower extremity Duplex Doppler venous ultrasound: Real time compression and duplex Doppler interrogation of the bilateral lower extremity deep venous system is performed. Bilaterally, the common femoral, superficial femoral and popliteal veins are fully compressible with transducer pressure and demonstrate normal spontaneous and phasic flow, without evidence of deep venous thrombosis. Impression: No evidence of deep venous thrombosis of the bilateral lower extremity femoral popliteal venous system. Signed by Kendell Parr MD 02/27/2017 04:14 P
[2017-02-27] MEDS ORDERED: FURO20TA2 PO (16:24)
--- NOTE | 2017-02-28 06:30 | REP ---
CT ABDOMEN AND PELVIS WITHOUT CONTRAST: CT abdomen and pelvis performed without oral or IV contrast. Sagittal and coronal reconstruction images are performed. There appears to be a new left lobe liver lesion measuring 2.7 cm in diameter and a new right lobe liver lesion inferiorly 1.9 cm in diameter. The spleen is grossly unremarkable. Small left adrenal nodule is present measuring about 2 x 1.2 cm. This is not definitely seen on the prior study and is suspicious for a metastatic lesion. There is new nodular thickening of the right adrenal gland as well. This may also represent metastatic disease. Pancreas is grossly unremarkable. Kidneys demonstrate no hydronephrosis. Scattered atherosclerotic calcifications are seen of the abdominal aorta without aneurysm. There is diffuse mild retroperitoneal adenopathy present as seen on prior study. Multiple subcentimeter lymph nodes are seen throughout the mesentery as well. There is no free air. There is a moderate amount of loculated fluid centrally in the mesentery. There may be diffuse thickening of the duodenum and proximal jejunum. The urinary bladder is collapsed and not evaluated. There is moderate compression deformity of the L2 vertebral body with diffuse heterogeneous sclerotic density suspicious for a pathologic compression fracture. IMPRESSION: Small right pleural effusion with adjacent atelectasis/infiltrate. Tiny left effusion with adjacent atelectasis/infiltrate. Mild adjacent interstitial infiltrates as well. There appears to be a new right lobe liver lesion and left lobe liver lesion which I suspect represent metastatic disease. Nodular soft tissue in both adrenal glands also suspicious for metastases. Retroperitoneal adenopathy is again seen and there are multiple subcentimeter lymph nodes throughout the mesentery. Possible diffuse thickening of duodenum and proximal jejunum. Moderate amount of central loculated fluid in the mesentery. There is a compression deformity of L2 which may be pathologic. Signed by Kendell Parr MD 02/28/2017 05:24 P
--- NOTE | 2017-02-28 06:48 | REP ---
CHEST, TWO VIEWS: Two views of the chest are performed and compared to prior study of 11/29/2016. There are small bilateral pleural effusions with mild bibasilar atelectasis/infiltrate. Heart does not appear to be significantly enlarged. Mediastinal silhouette is unchanged. Left MediPort catheter is seen with tip in the superior vena cava. IMPRESSION: Small effusions bilaterally with mild bibasilar infiltrate. Signed by Kendell Parr MD 02/28/2017 05:25 P
--- NOTE | 2017-02-28 08:30 | ECGEPIP ---
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
[2017-03-04] MEDS ORDERED: OXYC1SOL3 PO (11:24)
[2017-03-04] MEDS ORDERED: OXYC-517 PO (11:38)
== END 2017-02-27 16:42 | disposition home or self-care (01) ==
LOC: M ED 13:04
DX: R60.0 Localized edema (principal); I10 Essential (primary) hypertension; E11.9 Type 2 diabetes mellitus without complications; Z85.038 Personal history of other malignant neoplasm of large intestine; Z79.899 Other long term (current) drug therapy; Z87.891 Personal history of nicotine dependence

== ENCOUNTER → 2017-03-01 | Outpatient (CLI) | payer OTHER ==
[~2017-03-01] MED LIST changes: +ATEN25TA PO; +AZIT500T2 PO; +FURO20TA2 PO; +LONS0.27 PO; +MEGE400SUS PO; +OXYC-517 PO; +OXYC1SOL3 PO; +PRED10TA2 PO; +SPIR50TA2 PO; +VORI200T5 PO
[2017-03-01 13:26] LABS: CARCINOEMBRYONIC ANTIGEN 7.6 NG/ML (<2.5)
[2017-03-01 13:31] LABS: MEAN CORPUSCULAR HEMOGLOBIN 31.3 pg (27.0-33.0); WHITE BLOOD COUNT 13.4 10^3/uL (4.0-10.0)
[2017-03-01 13:38] LABS: ALBUMIN 2.5 GM/DL (3.2-5.2); ALBUMIN/GLOBULIN RATIO 0.93 (1.00-1.93); ALKALINE PHOSPHATASE 152 U/L (45-117); ALT/SGPT 61 U/L (12-78); ANION GAP 7 MEQ/L (8-16); AST/SGOT 52 U/L (15-37); BILIRUBIN,TOTAL 0.6 MG/DL (0.2-1.0); BLOOD UREA NITROGEN 33 MG/DL (7-18); CARBON DIOXIDE LEVEL 26 MEQ/L (21-32); CHLORIDE LEVEL 109 MEQ/L (98-107); CREATININE FOR GFR 1.06 MG/DL (0.70-1.30); GLOMERULAR FILTRATION RATE > 60.0 (>56); GLUCOSE, FASTING 104 MG/DL (70-105); POTASSIUM SERUM 4.1 MEQ/L (3.5-5.1); SODIUM LEVEL 142 MEQ/L (136-145); TOTAL PROTEIN 5.2 GM/DL (6.4-8.2)
== END ==
LOC: M WUC 09:25
PROVIDERS: ATTEND Internal Medicine Hematology & Oncology
DX: C18.9 Malignant neoplasm of colon, unspecified (principal); D64.81 Anemia due to antineoplastic chemotherapy

== ENCOUNTER → 2017-03-08 | Outpatient (CLI) | payer OTHER ==
[2017-03-08 13:02] LABS: BASO % 0.1 % (0.0-1.0); EOS % 0.1 % (0.0-3.0); IMMATURE GRANULOCYTE % 0.8 % (0-0); LYMPH # 0.6 10^3/uL (1.5-4.5); LYMPH % 4.9 % (24.0-44.0); MEAN CORPUSCULAR HEMOGLOBIN 31.9 pg (27.0-33.0); MEAN CORPUSCULAR HGB CONC 31.7 g/dl (32.0-36.5); MEAN CORPUSCULAR VOLUME 100.7 fl (80.0-96.0); MONO # 0.8 10^3/uL (0.0-0.8); MONO % 6.8 % (0.0-5.0); NEUTROPHILS # 10.4 10^3/uL (1.8-7.7); NEUTROPHILS % 87.3 % (36.0-66.0); WHITE BLOOD COUNT 11.9 10^3/uL (4.0-10.0)
[2017-03-08 13:32] LABS: CARCINOEMBRYONIC ANTIGEN 15.3 NG/ML (<2.5)
[2017-03-08 14:55] LABS: ALBUMIN 2.3 GM/DL (3.2-5.2); ALBUMIN/GLOBULIN RATIO 0.85 (1.00-1.93); ALKALINE PHOSPHATASE 229 U/L (45-117); ALT/SGPT 113 U/L (12-78); ANION GAP 11 MEQ/L (8-16); AST/SGOT 72 U/L (15-37); BILIRUBIN,TOTAL 0.5 MG/DL (0.2-1.0); BLOOD UREA NITROGEN 26 MG/DL (7-18); CALCIUM LEVEL 8.7 MG/DL (8.5-10.1); CARBON DIOXIDE LEVEL 27 MEQ/L (21-32); CHLORIDE LEVEL 104 MEQ/L (98-107); CREATININE FOR GFR 1.02 MG/DL (0.70-1.30); GLOMERULAR FILTRATION RATE > 60.0 (>56); GLUCOSE, FASTING 139 MG/DL (70-105); POTASSIUM SERUM 3.7 MEQ/L (3.5-5.1); SODIUM LEVEL 142 MEQ/L (136-145)
== END ==
LOC: M WUC 08:35
PROVIDERS: ATTEND Internal Medicine Hematology & Oncology
DX: E87.8 Other disorders of electrolyte and fluid balance, not elsewhere classified (principal); D64.81 Anemia due to antineoplastic chemotherapy

== ENCOUNTER → 2017-03-14 | Day surgery (SDC) | payer OTHER ==
[~2017-03-14] VITALS: Ht 182.9 cm; Wt 87.1 kg
[~2017-03-14] MED LIST changes: +BSS with VANC/TOB/EPI for EYE CASES IR ONE; +CYCLOPENTOLATE 2% OPHTH SOLN 2ML BTL OD ONE; +HEALON DUET (HEALON 10MG/ML 0.55ML & HEALON ENDOCOAT 30MG/ML 0.85ML) As Ordered ONE; +LIDOCAINE 1% SDV 5 ML VIAL As Ordered ONE; +LIDOCAINE 3.5 % 1ML OPHTH TOPICAL GEL OU ONE; +MOXIFLOXACIN IN BSS 0.25MG/0.25ML INTRACAMERAL INJ (OR EYE ONLY)(J2280) As Ordered ONE; +OFLOXACIN 0.3 % (OCUFLOX) OPTH SOL 5ML OD ONE; +PHENYLEPHRINE 2.5% OPHTH SOL 2ML OD ONE; +POVIDONE-IODINE 5% OPHTH PREP SOL 30ML As Ordered ONE; +TRIAMCINOLONE PRES FR 40 MG/ML 1ML(TRIESENCE)(OR EYE ONLY)(J3300 PER 1MG) As Ordered ONE; +TROPICAMIDE 1% OPHTH SOLN 2ML OD ONE
[2017-03-14 13:04] VITALS: BP 138/75
== END ==
LOC: M SDC 12:51
PROVIDERS: ATTEND Ophthalmology
DX: H25.9 Unspecified age-related cataract (principal); Z53.09 Procedure and treatment not carried out because of other contraindication
CPT/HCPCS: J2280; J3300

== ENCOUNTER 2017-03-16 08:37 | Day surgery (SDC) | payer OTHER ==
[~2017-03-16] VITALS: Ht 182.9 cm; Wt 87.0 kg
[~2017-03-16 08:37] MED LIST changes: +ACETAMINOPHEN 325 MG TAB PO PRN; -HEALON DUET (HEALON 10MG/ML 0.55ML & HEALON ENDOCOAT 30MG/ML 0.85ML) As Ordered ONE; -LIDOCAINE 1% SDV 5 ML VIAL As Ordered ONE; -LONS0.27 PO; -MEGE400SUS PO; +MIDAZOLAM INJ 2 MG/2 ML VIAL (J2250) As Ordered ONE; -MOXIFLOXACIN IN BSS 0.25MG/0.25ML INTRACAMERAL INJ (OR EYE ONLY)(J2280) As Ordered ONE; -POVIDONE-IODINE 5% OPHTH PREP SOL 30ML As Ordered ONE; -PRED10TA2 PO; +PROPARACAINE 0.5% OPHTH SOL 15ML OD PRN; -SPIR50TA2 PO; -TRIAMCINOLONE PRES FR 40 MG/ML 1ML(TRIESENCE)(OR EYE ONLY)(J3300 PER 1MG) As Ordered ONE; +fentaNYL 100 MCG/2 ML INJECTION (J3010) As Ordered ONE
[2017-03-16] MEDS ORDERED: KETOROLAC 0.5% OPHTH SOLN OD ONE ×2 (09:00→11:00)
[2017-03-16] MEDS ORDERED: TRIMETHOBENZAMIDE 300 MG CAP PO PRN ×2 (09:00→11:00)
[2017-03-16] MEDS ORDERED: AcetaZOLAMIDE 500 MG ER CAP PO ONE ×2 (09:00→11:00)
[2017-03-16] MEDS ORDERED: MOXIFLOXACIN IN BSS 0.25MG/0.25ML INTRACAMERAL INJ (OR EYE ONLY)(J2280) As Ordered ONE (09:49)
[2017-03-16] MEDS ORDERED: POVIDONE-IODINE 5% OPHTH PREP SOL 30ML As Ordered ONE (09:49)
[2017-03-16] MEDS ORDERED: LIDOCAINE 1% SDV 5 ML VIAL As Ordered ONE (09:49)
[2017-03-16] MEDS ORDERED: HEALON DUET (HEALON 10MG/ML 0.55ML & HEALON ENDOCOAT 30MG/ML 0.85ML) As Ordered ONE (09:49)
[2017-03-16] MEDS ORDERED: TRIAMCINOLONE PRES FR 40 MG/ML 1ML(TRIESENCE)(OR EYE ONLY)(J3300 PER 1MG) As Ordered ONE (09:49)
[2017-03-16] MEDS ORDERED: TETRACAINE 0.5% OPHTH SOLN 4ML As Ordered ONE (10:16)
[2017-03-16 10:55] VITALS: BP 136/85
[2017-03-16] MEDS ORDERED: ONDANSETRON 4MG/2ML VIAL (J2405) IV PRN (11:15)
[2017-03-16] MEDS ORDERED: LR 1,000 ML IV SCH (11:15)
== END 2017-03-16 11:05 | disposition home or self-care (01) ==
LOC: M SDC 08:37
PROVIDERS: ATTEND Ophthalmology
DX: H26.9 Unspecified cataract (principal); K59.00 Constipation, unspecified; M12.9 Arthropathy, unspecified; G62.9 Polyneuropathy, unspecified; Z87.891 Personal history of nicotine dependence; Z79.899 Other long term (current) drug therapy; Z86.79 Personal history of other diseases of the circulatory system; Z92.21 Personal history of antineoplastic chemotherapy; Z85.038 Personal history of other malignant neoplasm of large intestine
CPT/HCPCS: 66984; J2250; J2280; J3010; J3300

== ENCOUNTER → 2017-03-29 | Outpatient (CLI) | payer OTHER ==
[~2017-03-29] MED LIST changes: -ACETAMINOPHEN 325 MG TAB PO PRN; -BSS with VANC/TOB/EPI for EYE CASES IR ONE; -CYCLOPENTOLATE 2% OPHTH SOLN 2ML BTL OD ONE; -LIDOCAINE 3.5 % 1ML OPHTH TOPICAL GEL OU ONE; +LONS0.27 PO; +MEGE400SUS PO; -MIDAZOLAM INJ 2 MG/2 ML VIAL (J2250) As Ordered ONE; -OFLOXACIN 0.3 % (OCUFLOX) OPTH SOL 5ML OD ONE; -PHENYLEPHRINE 2.5% OPHTH SOL 2ML OD ONE; +PRED10TA2 PO; -PROPARACAINE 0.5% OPHTH SOL 15ML OD PRN; +SPIR50TA2 PO; -TROPICAMIDE 1% OPHTH SOLN 2ML OD ONE; -fentaNYL 100 MCG/2 ML INJECTION (J3010) As Ordered ONE
== END ==
LOC: M WUC 11:37
PROVIDERS: ATTEND Internal Medicine Hematology & Oncology
DX: C18.9 Malignant neoplasm of colon, unspecified (principal)

== ENCOUNTER 2017-04-11 12:16 | Inpatient (IN) | payer MEDICARE, OTHER ==
[~2017-04-11] VITALS: Ht 182.9 cm; Wt 77.0 kg
[~2017-04-11 12:16] MED LIST changes: -LONS0.27 PO; -MEGE400SUS PO; -PRED10TA2 PO; -SPIR50TA2 PO
[2017-04-11] MEDS ORDERED: LONS0.27 PO (12:37)
[2017-04-11] MEDS ORDERED: MEGE400SUS PO (12:37)
[2017-04-11] MEDS ORDERED: SPIR50TA2 PO (12:37)
--- NOTE | 2017-04-11 13:52 | REP ---
CT Head without contrast HISTORY: Altered mental status COMPARISON: 06/03/2008 Areas of decreased attenuation are present in the periventricular and subcortical white matter. This represents small-vessel ischemic disease. There is no intraparenchymal hemorrhage, acute infarct, mass or midline shift. The ventricular system and cortical sulci as well as subarachnoid space in the posterior fossa are dilated consistent with minimal volume loss. There is no extra cerebral collection. There is no fracture. The visualized sinuses are clear . A 1.8 cm lipoma is present in the subgaleal tissue overlying the right parietal bone. IMPRESSION: 1. Small vessel ischemic disease. 2. Minimal volume loss. Signed by Bryan Brasher MD 04/11/2017 01:44 P
--- NOTE | 2017-04-11 14:09 | REP ---
AP PORTABLE CHEST: 04/11/2017. Comparison: Chest x-ray 02/27/2017, 11/29/2016, 11/22/2016. Clinical history: Dyspnea. Findings: Indwelling left subclavian port catheter with lead tip in the right ventricle. Lungs are hypoinflated compared to the previous study. There is compressive atelectatic change above that slightly elevated right diaphragm. Some patchy atelectasis or infiltrate adjacent to the left heart border in the left lower lung zone. No gross effusion. Underlying fibrosis is seen. Pulmonary arteries are prominent centrally. Tortuous aorta noted. Airway intact. Small effusion on the right difficult to exclude. Impression: 1. Hypoinflation with elevated right diaphragm. Some underlying interstitial fibrotic changes and bibasilar patchy atelectasis or infiltrates. On the right adjacent to the elevated diaphragm and on the left lateral to the left heart border. 2. No gross cardiomegaly for portable technique with hypoinflation. 3. No shoshana edema. There is a calcified tortuous aorta but without aneurysm. Airway intact. Signed by Luigi Colorado MD 04/11/2017 02:36 P
[2017-04-11 15:42] LABS: MEAN CORPUSCULAR HEMOGLOBIN 31.5 pg (27.0-33.0); MEAN CORPUSCULAR HGB CONC 30.8 g/dl (32.0-36.5); MEAN CORPUSCULAR VOLUME 102.4 fl (80.0-96.0); PLATELET COUNT, AUTOMATED 236 10^3/uL (150-450); RED CELL DISTRIBUTION WIDTH 20.8 % (11.5-14.5); WHITE BLOOD COUNT 16.6 10^3/uL (4.0-10.0)
[2017-04-11 15:44] LABS: INR 1.26
[2017-04-11 16:01] LABS: ADD MANUAL DIFFER YES; DIFF SLIDE NUMBER 278; PLT CLUMPS? POS FLAG; POS COUNT POS FLAG; POSITIVE MORPH POS FLAG
[2017-04-11 16:08] LABS: BANDS 1 % (< 11)
[2017-04-11 16:10] LABS: ANISOCYTOSIS 2+; POLYCHROMASIA 1+; SCHISTOCYTES 1+; TEAR DROP CELLS 1+
[2017-04-11 16:11] LABS: ALBUMIN/GLOBULIN RATIO 0.74 (1.00-1.93); ALKALINE PHOSPHATASE 257 U/L (45-117); ALT/SGPT 23 U/L (12-78); ANION GAP 11 MEQ/L (8-16); AST/SGOT 78 U/L (7-37); BILIRUBIN,DIRECT 0.3 MG/DL (0.0-0.2); BILIRUBIN,TOTAL 0.6 MG/DL (0.2-1.0); BLOOD UREA NITROGEN 31 MG/DL (7-18); CALCIUM LEVEL 8.5 MG/DL (8.5-10.1); CARBON DIOXIDE LEVEL 20 MEQ/L (21-32); CHLORIDE LEVEL 109 MEQ/L (98-107); CREATININE FOR GFR 1.68 MG/DL (0.70-1.30); GLOMERULAR FILTRATION RATE 44.9 (>56); GLUCOSE, FASTING 86 MG/DL (70-105); POTASSIUM SERUM 4.9 MEQ/L (3.5-5.1); SODIUM LEVEL 140 MEQ/L (136-145); TOTAL PROTEIN 4.7 GM/DL (6.4-8.2)
[2017-04-11] MEDS ORDERED: PRED10TA2 PO (17:09)
[2017-04-11] MEDS ORDERED: NS 1,000 ML IV SCH (17:21)
--- NOTE | 2017-04-11 17:53 | REP ---
CT CHEST WITHOUT CONTRAST: 04/11/2017. Comparison: 07/05/2016 CT chest [facility]. Clinical history: Dyspnea, abdominal pain. Colon carcinoma. Findings: No IV contrast given. The lung nunez are adequately inflated. There are bilateral effusions small on the right, trace on the left. Both new since the previous CT. Fibrosis and COPD noted. Compressive atelectasis or infiltrate in the right base above the diaphragm. I do not see acute infiltrate with air bronchograms on the left or significant compressive atelectasis. Dependent atelectatic changes adjacent to the major fissure. Tiny nodular densities peripherally in the medial segment right middle lobe. The heart is enlarged. There is left atrial and ventricular enlargement. No pericardial thickening or effusion. The aorta has calcifications and is ectatic without aneurysm. Maximal diameter 3.8 cm in the ascending portion. There is an indwelling left subclavian port catheter with tip in SVC. Adenopathy in the mediastinum now with precarinal nodes up to 2 cm and right paratracheal nodes up to 1.3 cm. The AP window and prevascular space are intact. No axillary or supraclavicular mass on the right. There is a supraclavicular bill mass on the left about 18 mm. There are other smaller nodes some near a centimeter size in the supraclavicular fossa on both sides. The bone windows show sternum, manubrium, medial clavicles, portions of humeral heads, scapula and ribs included as well as the spine without acute fracture. Some old superior endplate wedging at T6, unchanged. Upper abdominal structures with significant interval changes and large amounts of fluid in the upper abdomen. Please see abdominal CT this date for details. Impression: 1. Interval development bilateral effusions with compressive atelectasis or consolidative infiltrate right lower lobe. Minimal atelectatic changes deep sulcus left lower lobe. The effusion is small on the right, trace on the left, but both new since the previous study. Underlying fibrosis, COPD, and dependent atelectatic changes with a few scattered tiny nodules. 2. Mediastinal adenopathy with precarinal node up to 2 cm, right paratracheal nodes up to 1.3 cm. 3. The bones without acute finding. 4. Cardiomegaly without pericardial thickening or effusion. 5. Supraclavicular adenopathy on the left. Signed by Luigi Colorado MD 04/12/2017 01:00 P
--- NOTE | 2017-04-11 18:09 | REP ---
CT ABDOMEN AND PELVIS WITHOUT CONTRAST: 04/11/2017. Comparison: 02/27/2017, 03/06/2016. Clinical history: Dyspnea, abdominal pain. Rule out colon carcinoma with prior resection. Ileostomy and reversal. Findings: There is evidence of compressive atelectasis or infiltrate in the right lower lobe with bilateral effusions, small on the right, trace on the left and basilar fibrotic change. Spleen is borderline with vertical height of 12.4 cm. No discrete splenic lesion. Liver shows a large left hepatic lobe but no gross hepatomegaly. Overall extensive spray artifact from the patient's arms limit evaluation of the liver. Calcified gallstone in the dependent gallbladder. There is massive fluid collection in the lesser sac measuring 27 cm transverse by 11 cm AP by 25 cm vertical and abutting the stomach and displacing it anteriorly extending into the left upper quadrant. It displaces the duodenum peripherally. Infiltration of fat around the inferior aspect of the duodenum at the second and third portion. There is infiltration of the mesentery and edema with a few scattered nodes. Stool and gas scattered in the colon. There are anastomotic sutures in the right upper quadrant from the ileocolic anastomosis. This is unchanged. Pancreas is attenuated by the very large mass and elongated/thinned. The aorta has calcifications without aneurysm. There are periaortic nodes, the largest about 2.2 cm in the midline lateral to the aorta on image 100 of series 205 but other aortocaval nodes in the 1-1.5 cm range seen. I do not see ascites around the liver or spleen despite the massive volume of fluid in the lesser sac. Bones are unchanged with an L2 sclerotic grade 2 compression fracture, similar to the study on 02/27. Not much progression of that compression deformity or retropulsion of any fragment into the neural canal. Bones demineralized. Small bowel loops not dilated. CT pelvis. Bladder distended without stone or mass. Kidneys show no hydronephrosis or hydroureter. They are without a definite mass or stone. There is no inguinal hernia or inguinal adenopathy. No ventral hernia. Small bowel loops in the pelvis not dilated. Edema in the subcutaneous fat may reflect some anasarca. Impression: 1. Massive fluid collection in the lesser sac measuring 27 x 25 x 11 cm. This is not accompanied by any significant ascites around the liver or spleen, peritoneal gutters or elsewhere. There is very minimal infiltration of the mesenteric but there are lymph nodes, periaortic, aortocaval and others in the retroperitoneum and upper abdomen. No focal splenic lesion or splenomegaly with the liver difficult to evaluate because of spray artifact from the arms unable to be raised. Calcified stone in its dependent portion of the gallbladder. The massive fluid collection in the lesser sac is likely related to the known prior malignancy. Some also seen around the pancreatic bed and adjacent to the medial aspect of the liver. All of this is loculated fluid, not free-flowing ascites. 2. Mesenteric, periaortic and other retroperitoneal adenopathy as described. The largest is periaortic at 2.2 cm. 3. No renal, ureteral or bladder stone or hydronephrosis. Bladder distended and without wall thickening, stone or mass. There is another small loculated fluid collection left lower quadrant anterior abdominal wall about 6 cm. 4. Anastomotic sutures right upper quadrant. 5. Anasarca. Signed by Luigi Colorado MD 04/12/2017 01:02 P
--- NOTE | 2017-04-11 18:54 | REP ---
Left upper extremity duplex venous ultrasound: History: Swelling left upper extremity. Question venous thrombosis. Comparison study is from [facility] dated July 05, 2016. Findings: One of the brachial veins shows occlusive thrombosis. The other brachial vein is patent on two-dimensional scanning. The cephalic, basilic, axillary, subclavian and internal jugular veins are anechoic and compressible with normal Doppler flow in the left upper extremity. Impression: Occlusive venous thrombosis of one of the left brachial veins. Otherwise negative left upper extremity duplex venous scan. Signed by Dennis Tenorio MD 04/11/2017 07:47 P
[2017-04-11] MEDS ORDERED: FUROSEMIDE 40 MG/4 ML VIAL (J1940) IV ONE (19:00)
[2017-04-11 19:48] LABS: VENOUS PARTIAL PRESSURE CO2 37.6 mmHg (38.0-50.0); VENOUS PARTIAL PRESSURE O2 50.8 mmHg (30.0-50.0); VENOUS STANDARD HCO3 23.4 MEQ/L; VENOUS TOTAL CO2 24.6 MEQ/L (24.0-28.0)
[2017-04-11 20:30] VITALS: BP 121/80
[2017-04-11 22:30] VITALS: BP 121/80
[2017-04-11] MEDS: GABAPENTIN 100 MG CAP PO SCH (23:11)
[2017-04-11] MEDS: SPIRONOLACTONE 50 MG TAB PO SCH (23:11)
[2017-04-11] MEDS: ENOXAPARIN 100MG/1ML SYRINGE (J1650) SC SCH (23:11)
[2017-04-11] MEDS: PANTOPRAZOLE 40MG TAB (PROTONIX) PO SCH (23:11)
[2017-04-12 06:00] VITALS: BP 122/80
[2017-04-12] MEDS: FUROSEMIDE 40 MG/4 ML VIAL (J1940) IV SCH ×2 (08:57→16:46)
[2017-04-12] MEDS: ENOXAPARIN 100MG/1ML SYRINGE (J1650) SC SCH ×2 (08:57→20:34)
[2017-04-12] MEDS: PANTOPRAZOLE 40MG TAB (PROTONIX) PO SCH ×2 (08:58→20:33)
[2017-04-12] MEDS: oxyCODONE 10 MG CR TAB PO SCH (08:58)
[2017-04-12] MEDS: predniSONE 5 MG TAB PO SCH (08:58)
[2017-04-12] MEDS: valACYclovir HCL 500 MG TAB PO SCH (08:59)
[2017-04-12] MEDS: GABAPENTIN 100 MG CAP PO SCH ×2 (08:59→20:34)
[2017-04-12] MEDS: SPIRONOLACTONE 50 MG TAB PO SCH ×2 (09:00→20:34)
[2017-04-12] MEDS ORDERED: ENOXAPARIN 40 MG/0.4 ML SYRINGE (J1650) SC SCH (09:00)
--- NOTE | 2017-04-12 09:07 | ECGEPIP ---
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
[2017-04-12 13:29] LABS: MEAN CORPUSCULAR HEMOGLOBIN 31.4 pg (27.0-33.0); MEAN CORPUSCULAR VOLUME 98.2 fl (80.0-96.0); PLATELET COUNT, AUTOMATED 300 10^3/uL (150-450); RED CELL DISTRIBUTION WIDTH 20.7 % (11.5-14.5)
[2017-04-12 13:43] LABS: ALBUMIN 1.9 GM/DL (3.2-5.2); ALBUMIN/GLOBULIN RATIO 0.66 (1.00-1.93); BILIRUBIN,TOTAL 0.6 MG/DL (0.2-1.0); CALCIUM LEVEL 8.2 MG/DL (8.5-10.1); CREATININE FOR GFR 1.67 MG/DL (0.70-1.30); GLOMERULAR FILTRATION RATE 45.2 (>56); POTASSIUM SERUM 4.2 MEQ/L (3.5-5.1); TOTAL PROTEIN 4.8 GM/DL (6.4-8.2)
[2017-04-12 14:00] VITALS: BP 121/74
[2017-04-12] MEDS ORDERED: LACTULOSE 20 GM/30 ML SYRUP UD PO ONE (15:00)
--- NOTE | 2017-04-12 16:54 | IPNPDOC ---
Date Seen The patient was seen on 04/12/17. Progress Note SUBJECTIVE: Patient is a56 yo male lethargic with some mild confusion. Family present and had detailed discussion regarding his ongoing care. Best I can determine he has stage 3 or 4 colorectal cancer with spread to lymphnodes. No overnight issues with CP, SOB, productive cough, n/v/d, f/c/r. OBJECTIVE PHYSICAL EXAMINATION: VITAL SIGNS: Please see below. GENERAL: lethargic HEENT: PERRLA, neck supple, throat clear, no JVD. CARDIOVASCULAR: RRR. RESPIRATORY: Diminished bibasilar breath sounds. ABDOMINAL: Soft, NT/ND, normoactive bowel sounds EXTREMITIES: 3+edema, no calf tenderness NEUROLOGICAL: CN II-XII grossly intact PSYCHOLOGICAL: Negative LABORATORY DATA: Please see below. MICROBIOLOGY: Please see below. DVT prophylaxis ordered?: yes ASSESSMENT AND PLAN: This is a 56 yo male with lethargy, low albumin and receiving palliative care for his colorectal CA. PROBLEMS: 1. Upper extremity deep venous thrombosis: continue wt based lovenox bid 2. Metabolic Encephalopathy: due to underlying illness and elevated ammonia. Start Lactulose. 3. Anasarca (secondary to low albumin level and patient being on prednisone for more than a month, Continue Lasix twice daily. Monitor renal functions closely as the patient may be intravascularly depleted even in spite of having generalized anasarca. 4. Acute kidney injury: slight improvement, continue to follow renal profile 5. Protein calorie malnutrition due to advanced cancer and poor oral intake. Dietary consult 6. Tachycardia. Patient does not have any fever. It is sinus tachycardia, could be related to underlying cancer. 7. Leukocytosis. Patient does not have any fever, does not have any signs of active infection. It is most likely related to being on chronic steroids for more than a month. However, patient's urinalysis is clean. Have sent blood cultures. If any cultures come back positive, will treat for infection. 8 . Metastatic colon cancer. Patient is following with oncologist at [place]. Patient has had several cycles of chemotherapy and is planned to be started on a new cycle of chemotherapy once approved by his insurance. 9. Deep venous thrombosis (DVT) prophylaxis. Patient is started on treatment for upper extremity deep venous thrombosis. Gastrointestinal (GI) prophylaxis has been ordered. 10. History of shingles, we will continue with valacyclovir. 11. Chronic pain, will continue with oxycodone once a day. Will reduce the dose of gabapentin in view of acute renal failure. Dispo: currently unclear until mentation improves. VS, I&O, 24H, [facility] Vital Signs/I&O Vital Signs Date Time Temp Pulse Resp B/P (MAP) Pulse Ox O2 Delivery O2 Flow Rate FiO2 04/12/17 14:00 99.8 122 16 121/74 (90) 95 Room Air I&O- Last 24 Hours up to 6 AM 04/13/17 06:00 Intake Total 840 ml Balance 840 ml Laboratory Data 24H LABS Laboratory Tests 2 04/11/17 18:51: Urine Appearance HAZY, Urine Color YELLOW, Urine pH 5.0, Urine Specific [place] 1.019, Urine Protein NEGATIVE, Urine Glucose (UA) NEGATIVE, Urine Ketones NEGATIVE, Urine Urobilinogen 0.2, Urine Bilirubin NEGATIVE, Urine Leukocyte Esterase NEGATIVE, Urine Blood NEGATIVE, Urine Nitrite NEGATIVE, Urine WBC (Auto ) 1, Urine RBC (Auto) 1, Urine Hyaline Casts (Auto) 1, Urine Bacteria (Auto) NEGATIVE, Urine Squamous Epithelial Cells 0, Urine Mucus (Auto) SMALL, Urine Sperm (Auto) 04/11/17 19:31: Blood Gas Puncture Site UNKNOWN, Blood Gas Bicarbonate Standard 23.4, Venous Blood pH 7.412, Venous Blood Partial Pressure CO2 37.6L, Venous Blood Partial Pressure O2 50.8H, Venous Blood Total Carbon Dioxide 24.6, Venous Blood HCO3 23.4, Venous Blood Oxygen Saturation 84.0H, Venous Blood Base Excess -1.0, Lactic Acid Level 1.0 04/12/17 13:00: Nucleated Red Blood Cells % (auto) 0.2H, Anion Gap 5L, Glomerular Filtration Rate 45.2L, Blood Urea Nitrogen 31H, Creatinine 1.67H, Sodium Level 138, Potassium Level 4.2, Chloride Level 103, Carbon Dioxide Level 30, Calcium Level 8.2L, Aspartate Amino Transf (AST/SGOT) 54H, Alanine Aminotransferase (ALT/SGPT ) 21, Alkaline Phosphatase 247H, Total Bilirubin 0.6, Total Protein 4.8L, Albumin 1.9L, Ammonia 64H, Albumin/Globulin Ratio 0.66L CBC/BMP Laboratory Tests 04/12/17 13:00 Red Blood Count 2.77 L, Mean Corpuscular Volume 98.2 H, Mean Corpuscular Hemoglobin 31.4, Mean Corpuscular Hemoglobin Concent 32.0, Red Cell Distribution Width 20.7 H, Calcium Level 8.2 L, Aspartate Amino Transf (AST/SGOT ) 54 H, Alanine Aminotransferase (ALT/SGPT) 21, Alkaline Phosphatase 247 H, Total Bilirubin 0.6, Total Protein 4.8 L, Albumin 1.9 L Microbiology Microbiology 04/11/17 Blood Culture - Preliminary, Resulted No growth after 24 hours . All specim... 04/11/17 Blood Culture - Preliminary, Resulted No growth after 24 hours . All specim... 04/11/17 Urine Culture, Received Pending JACQUI ESCUDERO DO Apr 12, 2017 16:53
[2017-04-12] MEDS: LACTULOSE 20 GM/30 ML SYRUP UD PO SCH (20:34)
[2017-04-12 22:00] VITALS: BP 128/83
[2017-04-13] MEDS: SODIUM CHLORIDE 0.9% INJ 10 ML SYR IV PRN (05:27)
[2017-04-13 05:41] LABS: MEAN CORPUSCULAR HEMOGLOBIN 31.5 pg (27.0-33.0); MEAN CORPUSCULAR HGB CONC 32.6 g/dl (32.0-36.5); MEAN CORPUSCULAR VOLUME 96.7 fl (80.0-96.0); PLATELET COUNT, AUTOMATED 327 10^3/uL (150-450); RED CELL DISTRIBUTION WIDTH 20.7 % (11.5-14.5); WHITE BLOOD COUNT 14.5 10^3/uL (4.0-10.0)
[2017-04-13 06:00] VITALS: BP 125/75
[2017-04-13 06:22] LABS: ALBUMIN 1.8 GM/DL (3.2-5.2); ALBUMIN/GLOBULIN RATIO 0.69 (1.00-1.93); BILIRUBIN,TOTAL 0.6 MG/DL (0.2-1.0); CALCIUM LEVEL 8.1 MG/DL (8.5-10.1); CREATININE FOR GFR 1.71 MG/DL (0.70-1.30); TOTAL PROTEIN 4.4 GM/DL (6.4-8.2)
[2017-04-13] MEDS: FUROSEMIDE 40 MG/4 ML VIAL (J1940) IV SCH ×2 (08:48→16:56)
[2017-04-13] MEDS: ENOXAPARIN 100MG/1ML SYRINGE (J1650) SC SCH ×2 (08:49→21:08)
[2017-04-13 09:00] VITALS: BP 123/82
[2017-04-13] MEDS: SODIUM CHLORIDE 0.9% INJ 10 ML SYR IV SCH (09:16)
[2017-04-13] MEDS: MEGESTROL SUSP 400 MG/10 ML UDC PO SCH (09:28)
[2017-04-13] MEDS: oxyCODONE 10 MG CR TAB PO SCH ×2 (09:29→21:07)
[2017-04-13] MEDS: valACYclovir HCL 500 MG TAB PO SCH (11:21)
[2017-04-13] MEDS: PANTOPRAZOLE 40MG TAB (PROTONIX) PO SCH ×2 (11:22→21:06)
[2017-04-13] MEDS: GABAPENTIN 100 MG CAP PO SCH ×2 (11:22→21:06)
[2017-04-13] MEDS: predniSONE 5 MG TAB PO SCH (11:22)
[2017-04-13] MEDS: SPIRONOLACTONE 50 MG TAB PO SCH ×2 (11:22→21:06)
[2017-04-13] MEDS: LACTULOSE 20 GM/30 ML SYRUP UD PO SCH ×4 (11:46→23:47)
--- NOTE | 2017-04-13 13:46 | IPNPDOC ---
Date Seen The patient was seen on 04/13/17. Progress Note SUBJECTIVE: Patient is a 56 yo male seen at beside with family present. Still somewhat lethargic. Had elevated ammonia level yesterday and repeat today is about the same. No overnight issues. No CP, Dyspnea, prod cough, n/v/d, f/c/r OBJECTIVE PHYSICAL EXAMINATION: VITAL SIGNS: Please see below. GENERAL: lethargic, not much change from yesterday HEENT: PERRLA, neck supple, throat clear, no JVD. CARDIOVASCULAR: RRR. RESPIRATORY: Diminished bibasilar breath sounds. ABDOMINAL: Soft, NT/ND, normoactive bowel sounds EXTREMITIES: 3+edema, no calf tenderness NEUROLOGICAL: CN II-XII grossly intact PSYCHOLOGICAL: Negative LABORATORY DATA: Please see below. MICROBIOLOGY: Please see below. DVT prophylaxis ordered?: yes ASSESSMENT AND PLAN: This is a 56 yo male with ongoing issues with lethargy. PROBLEMS: 1. Upper extremity deep venous thrombosis: continue wt based lovenox bid 2. Metabolic Encephalopathy: due to underlying illness and elevated ammonia. Increase dose of lactulose. Will check u/s of liver. 3. Anasarca due to severe protein calorie malnutrition related to colon cancer. Continue Lasix twice daily with spironolactone Monitor renal functions closely as the patient may be intravascularly depleted even in spite of having generalized anasarca. 4. Acute kidney injury: creatinine slightly elevated today, will continue to monitor 5. Severe Protein calorie malnutrition due to advanced cancer and poor oral intake. Dietary consult pending. 6. Tachycardia. Patient does not have any fever. It is sinus tachycardia, could be related to underlying cancer. 7. Leukocytosis combined with tachycardia and cough Patient does not have any fever, does not have any signs of active infection. however, since his mentation has not improved much i'd like to check a CT of the chest. Possibly related to being on chronic steroids.Urinalysis is clean and negative blood cultures. 8 . Metastatic colon cancer. Patient is following with oncologist at [place]. Patient has had several cycles of chemotherapy and is planned to be started on a new cycle of chemotherapy once approved by his insurance. 9. Deep venous thrombosis (DVT) prophylaxis. Patient is started on treatment for upper extremity deep venous thrombosis. Gastrointestinal (GI) prophylaxis has been ordered. 10. History of shingles, we will continue with valacyclovir. 11. Chronic pain, will continue with oxycodone once a day. Dispo: currently unclear until mentation improves. VS, I&O, 24H, Fishbone Vital Signs/I&O Vital Signs Date Time Temp Pulse Resp B/P (MAP) Pulse Ox O2 Delivery O2 Flow Rate FiO2 04/13/17 09:29 18 Room Air 04/13/17 09:00 98.8 122 123/82 (96) 92 I&O- Last 24 Hours up to 6 AM 04/14/17 06:00 Intake Total 0 ml Output Total 1100 ml Balance -1100 ml Laboratory Data 24H LABS Laboratory Tests 2 04/13/17 05:34: Nucleated Red Blood Cells % (auto) 0.2H, Anion Gap 10, Glomerular Filtration Rate 44.0L, Blood Urea Nitrogen 31H, Creatinine 1.71H, Sodium Level 141, Potassium Level 4.0, Chloride Level 104, Carbon Dioxide Level 27, Calcium Level 8.1L, Aspartate Amino Transf (AST/SGOT) 52H, Alanine Aminotransferase (ALT/SGPT ) 19, Alkaline Phosphatase 237H, Total Bilirubin 0.6, Total Protein 4.4L, Albumin 1.8L, Albumin/Globulin Ratio 0.69L 04/13/17 09:14: Ammonia 65H CBC/BMP Laboratory Tests 04/13/17 05:34 Red Blood Count 2.73 L, Mean Corpuscular Volume 96.7 H, Mean Corpuscular Hemoglobin 31.5, Mean Corpuscular Hemoglobin Concent 32.6, Red Cell Distribution Width 20.7 H, Calcium Level 8.1 L, Aspartate Amino Transf (AST/SGOT ) 52 H, Alanine Aminotransferase (ALT/SGPT) 19, Alkaline Phosphatase 237 H, Total Bilirubin 0.6, Total Protein 4.4 L, Albumin 1.8 L Microbiology Microbiology 04/11/17 Blood Culture - Preliminary, Resulted No growth after 24 hours . All specim... 04/11/17 Blood Culture - Preliminary, Resulted No growth after 24 hours . All specim... 04/11/17 Urine Culture - Final, Complete JACQUI ESCUDERO DO Apr 13, 2017 13:46
--- NOTE | 2017-04-13 16:51 | REP ---
CT of the chest abdomen pelvis without IV or bowel contrast: CT of the chest without IV contrast: Comparison is 04/11/2017. There are bilateral pleural effusions. The right pleural effusion is moderate. Left pleural effusion is small. The effusions are unchanged in size. There is compressive atelectasis of the lungs adjacent to the effusions as previously. There are a few small nodular densities along the anterior margin of the right pleural effusion, not present previously, likely representing small focal zones of atelectasis. There is a linear density in the density in the extreme apex of the left lung, unchanged, likely parenchymal scar. There are subtle bilateral upper lobe infiltrates posteriorly in the upper lobes. The mediastinal adenopathy is unchanged. There is no axillary adenopathy. Thoracic aorta is unremarkable. Cardiac size is normal. Impression: No significant interval change from 04/11/2017. CT of the abdomen and pelvis: Comparison is 04/11/2017. In the upper abdomen there is a massive fluid collection in the lesser sac and numerous enlarged nodes in the upper abdomen forming a confluent mass. This is similar appearance to the CT of the abdomen pelvis 04/11/2017. There is periaortic and aortocaval adenopathy also unchanged. There is no ascites. No bowel distension. An anastomotic surgical suture ring is noted in the right upper quadrant ileocolic anastomosis, unchanged. The adrenals, kidneys and abdominal aorta are unchanged. Pelvis: There is no ascites. The bladder is distended but otherwise are. The pelvic bowel loops are unchanged. Impression: Massive fluid collection in the lesser sac, unchanged. Marked mesenteric and retroperitoneal adenopathy, unchanged. No bowel distension or obstruction. Signed by Kendell Lobo MD 04/13/2017 04:43 P
[2017-04-13 22:00] VITALS: BP 125/79
[2017-04-14] MEDS: LACTULOSE 20 GM/30 ML SYRUP UD PO SCH ×4 (05:35→23:32)
[2017-04-14] MEDS: SODIUM CHLORIDE 0.9% INJ 10 ML SYR IV PRN (05:36)
[2017-04-14 05:48] LABS: MEAN CORPUSCULAR HEMOGLOBIN 31.5 pg (27.0-33.0); MEAN CORPUSCULAR HGB CONC 32.5 g/dl (32.0-36.5); MEAN CORPUSCULAR VOLUME 97.1 fl (80.0-96.0); PLATELET COUNT, AUTOMATED 348 10^3/uL (150-450); RED CELL DISTRIBUTION WIDTH 20.6 % (11.5-14.5); WHITE BLOOD COUNT 17.1 10^3/uL (4.0-10.0)
[2017-04-14 06:00] VITALS: BP 113/73
[2017-04-14 06:41] LABS: ALBUMIN 1.8 GM/DL (3.2-5.2); ALBUMIN/GLOBULIN RATIO 0.67 (1.00-1.93); BILIRUBIN,TOTAL 0.6 MG/DL (0.2-1.0); CALCIUM LEVEL 8.4 MG/DL (8.5-10.1); CREATININE FOR GFR 1.8 MG/DL (0.70-1.30); GLOMERULAR FILTRATION RATE 41.5 (>56); POTASSIUM SERUM 3.8 MEQ/L (3.5-5.1); TOTAL PROTEIN 4.5 GM/DL (6.4-8.2)
[2017-04-14 09:30] VITALS: BP 128/79
[2017-04-14] MEDS: oxyCODONE 10 MG CR TAB PO SCH ×2 (09:58→20:30)
[2017-04-14] MEDS: SODIUM CHLORIDE 0.9% INJ 10 ML SYR IV SCH (10:00)
[2017-04-14] MEDS: FUROSEMIDE 40 MG/4 ML VIAL (J1940) IV SCH ×2 (10:00→18:00)
[2017-04-14] MEDS: MEGESTROL SUSP 400 MG/10 ML UDC PO SCH (10:00)
--- NOTE | 2017-04-14 10:14 | REP ---
Abdominal right upper quadrant ultrasound: Comparison is a CT of the abdomen and pelvis dated 04/11/2017. On the comparison CT there was a massive fluid collection in the lesser sac and a second focal fluid collection intraperitoneal in the left lower quadrant along the anterior abdominal wall. On the ultrasound study today a very large fluid collection is identified in the upper abdomen measuring 30 x 31 x 15 cm containing septations, likely corresponding to the large fluid collection in the lesser sac by CT. The gallbladder could not be visualized, likely compressive collapsed by this large upper abdominal fluid collection. The biliary ducts could not be visualized. The hepatic parenchyma has a coarsened echotexture. No focal hepatic lesions. The pancreas could not be visualized. The right kidney cannot be optimally visualized. No hydronephrosis is identified. There is questionably a cyst in the lower pole of the right kidney. Impression: Poor quality study. There is a large focal fluid collection in the upper abdomen corresponding to the large fluid collection in the lesser sac on the comparison CT. Signed by Kendell Lobo MD 04/14/2017 10:06 A
[2017-04-14] MEDS ORDERED: NS 1,000 ML IV SCH (11:00)
[2017-04-14] MEDS: predniSONE 5 MG TAB PO SCH (11:02)
[2017-04-14] MEDS: GABAPENTIN 100 MG CAP PO SCH ×2 (11:02→20:28)
[2017-04-14] MEDS: PANTOPRAZOLE 40MG TAB (PROTONIX) PO SCH ×2 (11:03→20:29)
[2017-04-14] MEDS: valACYclovir HCL 500 MG TAB PO SCH (11:03)
[2017-04-14] MEDS: SPIRONOLACTONE 50 MG TAB PO SCH ×2 (11:03→20:28)
[2017-04-14] MEDS: ENOXAPARIN 100MG/1ML SYRINGE (J1650) SC SCH ×2 (11:04→20:28)
--- NOTE | 2017-04-14 14:13 | IPNPDOC ---
Date Seen The patient was seen on 04/14/17. Progress Note SUBJECTIVE: Patient is a 56 yo male seen at bedside. Abdomen feels a bit more bloated, had a bowel movement this morning. Denies: f/c/r, n/v/d, CP, productive sputum. OBJECTIVE PHYSICAL EXAMINATION: VITAL SIGNS: Please see below. GENERAL: NAD, Pleasant and less lethargic than yesterday HEENT: PERRLA, throat clear, neck supple, no JVD CARDIOVASCULAR: RRR. RESPIRATORY: CTA Bilaterally. ABDOMINAL: soft, distended, mild tenderness no rebound with positive bowel sounds EXTREMITIES: 3+edema/no calf tenderness] NEUROLOGICAL: CN'S II-XII grossly in tact PSYCHOLOGICAL: negative LABORATORY DATA: Please see below. MICROBIOLOGY: Please see below. IMAGING: CT ABD/PELVIS: Massive fluid collection in the lesser sac, unchanged. Marked mesenteric and retroperitoneal adenopathy, unchanged. No bowel distension or obstruction. LIVER U/S: Poor quality study. There is a large focal fluid collection in the upper abdomen corresponding to the large fluid collection in the lesser sac on the comparison CT. DVT prophylaxis ordered?: YES ASSESSMENT AND PLAN: This is a 56 yo male started lactulose yesterday for his hyperalbuminemia. PROBLEMS: 1. Upper extremity deep venous thrombosis: continue wt based lovenox bid 2. Metabolic Encephalopathy: due to underlying illness and elevated ammonia. Continue lactulose, improved ammonia level. Liver u/s indeterminant. 3. Anasarca due to severe protein calorie malnutrition related to colon cancer. Continue Lasix twice daily with spironolactone Monitor renal functions closely as the patient may be intravascularly depleted even in spite of having generalized anasarca. 4. Acute kidney injury: creatinine slightly elevated today, will continue to monitor 5. Severe Protein calorie malnutrition due to advanced cancer and poor oral intake. Dietary consult pending. 6. Tachycardia. Afebrile. It is sinus tachycardia, likely related to underlying cancer. 7. Leukocytosis combined with tachycardia and cough CT of abdomen/pelvis suggests fluid pocket in lesser sac, will attempt IR drainage and cultures. 8 . Metastatic colon cancer. Patient is following with oncologist at [place]. Patient has had several cycles of chemotherapy and is planned to be started on a new cycle of chemotherapy once approved by his insurance. 9. Deep venous thrombosis (DVT) prophylaxis. Patient is started on treatment for upper extremity deep venous thrombosis. Gastrointestinal (GI) prophylaxis has been ordered. 10. History of shingles, we will continue with valacyclovir. 11. Chronic pain, will continue with oxycodone once a day. Dispo: currently unclear until mentation improves some more. VS, I&O, 24H, Fishbone Vital Signs/I&O Vital Signs Date Time Temp Pulse Resp B/P (MAP) Pulse Ox O2 Delivery O2 Flow Rate FiO2 04/14/17 10:30 95 Nasal Cannula 2.0 04/14/17 09:58 18 04/14/17 09:30 98.0 126 128/79 (95) I&O- Last 24 Hours up to 6 AM 04/15/17 06:00 Intake Total 0 ml Output Total 225 ml Balance -225 ml Laboratory Data 24H LABS Laboratory Tests 2 04/14/17 05:41: Nucleated Red Blood Cells % (auto) 0.1H, Ammonia 43H 04/14/17 05:42: Anion Gap 11, Glomerular Filtration Rate 41.5L, Blood Urea Nitrogen 32H, Creatinine 1.80H, Sodium Level 139, Potassium Level 3.8, Chloride Level 101, Carbon Dioxide Level 27, Calcium Level 8.4L, Aspartate Amino Transf (AST/SGOT) 56H, Alanine Aminotransferase (ALT/SGPT) 16, Alkaline Phosphatase 242H, Total Bilirubin 0.6, Total Protein 4.5L, Albumin 1.8L, Albumin/Globulin Ratio 0.67L CBC/BMP Laboratory Tests 04/14/17 05:41 Red Blood Count 2.76 L, Mean Corpuscular Volume 97.1 H, Mean Corpuscular Hemoglobin 31.5, Mean Corpuscular Hemoglobin Concent 32.5, Red Cell Distribution Width 20.6 H 04/14/17 05:42 Calcium Level 8.4 L, Aspartate Amino Transf (AST/SGOT) 56 H, Alanine Aminotransferase (ALT/SGPT) 16, Alkaline Phosphatase 242 H, Total Bilirubin 0.6 , Total Protein 4.5 L, Albumin 1.8 L Microbiology Microbiology 04/11/17 Blood Culture - Preliminary, Resulted No Growth after 48 hours. All Specime... 04/11/17 Blood Culture - Preliminary, Resulted No Growth after 48 hours. All Specime... 04/11/17 Urine Culture - Final, Complete JACQUI ESCUDERO DO Apr 14, 2017 14:13
[2017-04-14 22:00] VITALS: BP 109/71
[2017-04-15] MEDS: LACTULOSE 20 GM/30 ML SYRUP UD PO SCH ×4 (05:05→23:59)
[2017-04-15] MEDS: SODIUM CHLORIDE 0.9% INJ 10 ML SYR IV PRN ×2 (05:12→05:45)
[2017-04-15 05:28] LABS: MEAN CORPUSCULAR HEMOGLOBIN 30.7 pg (27.0-33.0); MEAN CORPUSCULAR HGB CONC 31.7 g/dl (32.0-36.5); MEAN CORPUSCULAR VOLUME 96.7 fl (80.0-96.0); PLATELET COUNT, AUTOMATED 381 10^3/uL (150-450); RED CELL DISTRIBUTION WIDTH 20.2 % (11.5-14.5); WHITE BLOOD COUNT 22.9 10^3/uL (4.0-10.0)
[2017-04-15 06:00] VITALS: BP 113/70
[2017-04-15 06:11] LABS: ALBUMIN 1.7 GM/DL (3.2-5.2); ALBUMIN/GLOBULIN RATIO 0.63 (1.00-1.93); BILIRUBIN,TOTAL 0.6 MG/DL (0.2-1.0); CALCIUM LEVEL 7.7 MG/DL (8.5-10.1); CREATININE FOR GFR 2.07 MG/DL (0.70-1.30); GLOMERULAR FILTRATION RATE 35.3 (>56); POTASSIUM SERUM 3.1 MEQ/L (3.5-5.1); TOTAL PROTEIN 4.4 GM/DL (6.4-8.2)
[2017-04-15] MEDS: ENOXAPARIN 100MG/1ML SYRINGE (J1650) SC SCH ×2 (07:06→20:14)
[2017-04-15] MEDS ORDERED: POTASSIUM CHLORIDE 10 MEQ SR TABLET PO ONE (09:00)
[2017-04-15] MEDS: FUROSEMIDE 40 MG/4 ML VIAL (J1940) IV SCH ×2 (09:56→18:35)
[2017-04-15] MEDS: MEGESTROL SUSP 400 MG/10 ML UDC PO SCH (09:57)
[2017-04-15] MEDS: oxyCODONE 10 MG CR TAB PO SCH ×2 (09:57→20:14)
[2017-04-15] MEDS: predniSONE 5 MG TAB PO SCH (09:57)
[2017-04-15] MEDS: valACYclovir HCL 500 MG TAB PO SCH (09:57)
[2017-04-15] MEDS: PANTOPRAZOLE 40MG TAB (PROTONIX) PO SCH ×2 (09:57→20:12)
[2017-04-15] MEDS: GABAPENTIN 100 MG CAP PO SCH ×2 (09:57→20:12)
[2017-04-15] MEDS: SODIUM CHLORIDE 0.9% INJ 10 ML SYR IV SCH (09:58)
[2017-04-15] MEDS: SPIRONOLACTONE 50 MG TAB PO SCH ×2 (09:58→20:12)
[2017-04-15 14:00] VITALS: BP 105/69
[2017-04-15] MEDS ORDERED: LIDOCAINE 1% MDV 20ML VIAL As Ordered ONE (15:47)
--- NOTE | 2017-04-15 16:20 | IPNPDOC ---
Date Seen The patient was seen on 04/15/17. Progress Note SUBJECTIVE: Patient is a 56 yo male seen at bedside. Abdomen still feels bloated , had several bowel movements this morning. Denies: f/c/r, n/v/d, CP, productive sputum. at bedside, we reviewed out of hospital MRI of Abdomen don 03/21/2017: showed mets to liver, hepatic vasc lymph nodes as well adrenals. OBJECTIVE PHYSICAL EXAMINATION: VITAL SIGNS: Please see below. GENERAL: NAD, Pleasant and less lethargic than yesterday HEENT: PERRLA, throat clear, neck supple, no JVD CARDIOVASCULAR: RRR. RESPIRATORY: CTA Bilaterally. ABDOMINAL: soft, distended, mild tenderness no rebound with positive bowel sounds EXTREMITIES: 3+edema/no calf tenderness NEUROLOGICAL: CN'S II-XII grossly in tact PSYCHOLOGICAL: negative LABORATORY DATA: Please see below. AMMONIA LEVEL TODAY: 27 MICROBIOLOGY: Please see below. IMAGING: CT ABD/PELVIS: Massive fluid collection in the lesser sac, unchanged. Marked mesenteric and retroperitoneal adenopathy, unchanged. No bowel distension or obstruction. LIVER U/S: Poor quality study. There is a large focal fluid collection in the upper abdomen corresponding to the large fluid collection in the lesser sac on the comparison CT. DVT prophylaxis ordered?: YES ASSESSMENT AND PLAN: This is a 56 yo male started lactulose couple days ago and serum ammonia level back to normal. Spoke to and patient regarding the MRI abdomen report they produced. It demonstrates extensive mets through out abdomen with involvement of the liver an adrenals. PROBLEMS: 1. Upper extremity deep venous thrombosis: continue wt based lovenox bid 2. Metabolic Encephalopathy: due to underlying illness and elevated ammonia. Continue lactulose with hold parameters if >BMs per day. MRI report that produced states he has liver and adrenal mets. 3. Anasarca due to severe protein calorie malnutrition related to colon cancer. Continue Lasix twice daily with spironolactone Monitor renal functions closely as the patient may be intravascularly depleted even in spite of having generalized anasarca. Had discussion this is likely due to cancer combined with liver mets. 4. Acute kidney injury: creatinine slightly elevated again today, will continue to monitor. 5. Severe Protein calorie malnutrition due to advanced cancer and poor oral intake. Dietary consult pending and noting liver mets. 6. Tachycardia. Afebrile. It is sinus tachycardia, likely related to underlying cancer. 7. Leukocytosis combined with tachycardia and cough CT of abdomen/pelvis suggests fluid pocket in lesser sac, will attempt IR drainage and cultures today. 8 . Metastatic colon cancer. Patient is following with oncologist at [place]. Patient has had several cycles of chemotherapy and is planned to be started on a new cycle of chemotherapy once approved by his insurance. The patient and understands that treatment was for palliation. 9. Deep venous thrombosis (DVT) prophylaxis. Patient is started on treatment for upper extremity deep venous thrombosis. Gastrointestinal (GI) prophylaxis has been ordered. 10. History of shingles, we will continue with valacyclovir. 11. Chronic pain, will continue with oxycodone once a day. Dispo: Primary focus today is to drain fluid from abdomen. We had a fairly detailed discussion regarding his colorectal cancer with mets (stage 4 cancer). They understand he is terminal and I have encouraged them to talk further with our cancer nurse navigator and his Oncologist (Dr. Tesfaye). We discussed the importance of knowing what his prognosis is and with him being weak and malnourished, what would his oncologist recommend at this point regarding palliation vs hospice. Advanced Directives: Discussed and patient/ are to let me know further after above discussions have happened with his Oncologist & Cancer Nurse Navigator. VS, I&O, 24H, Fishbone Vital Signs/I&O Vital Signs Date Time Temp Pulse Resp B/P (MAP) Pulse Ox O2 Delivery O2 Flow Rate FiO2 04/15/17 14:00 98.0 124 18 105/69 (81) 97 Nasal Cannula 2.0 I&O- Last 24 Hours up to 6 AM 04/16/17 06:00 Intake Total 300 ml Output Total 0 ml Balance 300 ml Laboratory Data 24H LABS Laboratory Tests 2 04/15/17 05:17: Nucleated Red Blood Cells % (auto) 0.1H, Anion Gap 12, Glomerular Filtration Rate 35.3L, Blood Urea Nitrogen 33H, Creatinine 2.07H, Sodium Level 140, Potassium Level 3.1L, Chloride Level 103, Carbon Dioxide Level 25, Calcium Level 7.7L, Aspartate Amino Transf (AST/SGOT) 50H, Alanine Aminotransferase (ALT /SGPT) 14, Alkaline Phosphatase 274H, Total Bilirubin 0.6, Total Protein 4.4L, Albumin 1.7L, Albumin/Globulin Ratio 0.63L 04/15/17 10:20: Ammonia 27 CBC/BMP Laboratory Tests 04/15/17 05:17 Red Blood Count 3.00 L, Mean Corpuscular Volume 96.7 H, Mean Corpuscular Hemoglobin 30.7, Mean Corpuscular Hemoglobin Concent 31.7 L, Red Cell Distribution Width 20.2 H, Calcium Level 7.7 L, Aspartate Amino Transf (AST/SGOT ) 50 H, Alanine Aminotransferase (ALT/SGPT) 14, Alkaline Phosphatase 274 H, Total Bilirubin 0.6, Total Protein 4.4 L, Albumin 1.7 L Microbiology Microbiology 04/11/17 Blood Culture - Preliminary, Resulted No Growth after 72 hours. All specime... 04/11/17 Blood Culture - Preliminary, Resulted No Growth after 72 hours. All specime... 04/11/17 Urine Culture - Final, Complete JACQUI ESCUDERO DO Apr 15, 2017 16:20
[2017-04-15 18:18] LABS: SPEC. GRAVITY BODY FLUIDS 1.019 (NOT ESTABLISHED)
[2017-04-15] MEDS: PIPERACILLIN/TAZOBACTAM SOD 3.375 GM in D5W 50 ML IV SCH (18:35)
[2017-04-15] MEDS: NS 1,000 ML IV SCH (18:36)
[2017-04-15 19:25] LABS: BF MONONUCLEAR CELL % 68.1 % (0-0); BF POLYMORPHONUCLEAR CELL % 31.9 % (0-0); RBC BODY FLUID < 2 10^3/uL (<2); WBC BODY FLUID 47 /uL (0-10)
[2017-04-15 19:31] LABS: TOTAL PROTEIN, BODY FLUID 1.5 G/DL (NOT ESTABLISHED)
[2017-04-15 19:56] LABS: BF DIFF IF INDICATED? YES (NO)
[2017-04-15 21:25] VITALS: BP 80/60
[2017-04-15 22:00] VITALS: BP 92/60
[2017-04-15 23:54] VITALS: BP 78/58
[2017-04-16] MEDS: PIPERACILLIN/TAZOBACTAM SOD 3.375 GM in D5W 50 ML IV SCH ×3 (01:10→20:23)
[2017-04-16 01:50] VITALS: BP 86/62
[2017-04-16] MEDS: LACTULOSE 20 GM/30 ML SYRUP UD PO SCH ×3 (05:55→18:34)
[2017-04-16] MEDS: NS 1,000 ML IV SCH ×2 (05:56→14:04)
[2017-04-16 06:18] LABS: MEAN CORPUSCULAR HEMOGLOBIN 31.2 pg (27.0-33.0); MEAN CORPUSCULAR HGB CONC 32.5 g/dl (32.0-36.5); MEAN CORPUSCULAR VOLUME 96.2 fl (80.0-96.0); PLATELET COUNT, AUTOMATED 286 10^3/uL (150-450); RED CELL DISTRIBUTION WIDTH 19.9 % (11.5-14.5); WHITE BLOOD COUNT 19.2 10^3/uL (4.0-10.0)
[2017-04-16 07:19] LABS: ALBUMIN 1.3 GM/DL (3.2-5.2); ALBUMIN/GLOBULIN RATIO 0.59 (1.00-1.93); BILIRUBIN,TOTAL 0.5 MG/DL (0.2-1.0); CALCIUM LEVEL 7.3 MG/DL (8.5-10.1); CREATININE FOR GFR 2.51 MG/DL (0.70-1.30); GLOMERULAR FILTRATION RATE 28.2 (>56); POTASSIUM SERUM 3.4 MEQ/L (3.5-5.1); TOTAL PROTEIN 3.5 GM/DL (6.4-8.2)
--- NOTE | 2017-04-16 07:36 | IPNPDOC ---
Date Seen The patient was seen on 04/16/17. Progress Note SUBJECTIVE: Patient is a 56 yo male seen at bedside. Abdomen still feels less bloated. Had approximately 4L withdrawn from abdominal site yesterday with IR. Denies: f/c/r, n/v/d, CP, productive sputum. at bedside, he is anemic this morning and consented for blood transfusion. OBJECTIVE PHYSICAL EXAMINATION: VITAL SIGNS: Please see below. GENERAL: NAD, Pleasant and less lethargic than yesterday HEENT: PERRLA, throat clear, neck supple, no JVD CARDIOVASCULAR: RRR. RESPIRATORY: CTA Bilaterally. ABDOMINAL: soft, distended, mild tenderness no rebound with positive bowel sounds EXTREMITIES: 3+edema/no calf tenderness NEUROLOGICAL: CN'S II-XII grossly in tact PSYCHOLOGICAL: negative LABORATORY DATA: Please see below. AMMONIA LEVEL TODAY: 36 MICROBIOLOGY: Please see below. IMAGING: CT ABD/PELVIS: Massive fluid collection in the lesser sac, unchanged. Marked mesenteric and retroperitoneal adenopathy, unchanged. No bowel distension or obstruction. LIVER U/S: Poor quality study. There is a large focal fluid collection in the upper abdomen corresponding to the large fluid collection in the lesser sac on the comparison CT. DVT prophylaxis ordered?: YES ASSESSMENT AND PLAN: This is a 56 yo male started lactulose couple days ago and serum ammonia level slightly elevated today and drop in H/H after having fluid drawn off abdomen yesterday. Spoke to and patient regarding the MRI abdomen report they produced. It demonstrates extensive mets through out abdomen with involvement of the liver an adrenals. PROBLEMS: 1. Acute anemia: drop in H/H today, consented and planned transfusion of 2uPRBC , will give dose of lasix between transfusions. 2. Upper extremity deep venous thrombosis: continue wt based lovenox bid Check stool for blood. 3. Metabolic Encephalopathy: due to underlying illness and elevated ammonia. Continue lactulose with hold parameters if >BMs per day. MRI report that produced states he has liver and adrenal mets. 4. Anasarca due to severe protein calorie malnutrition related to colon cancer. Continue Lasix twice daily with spironolactone (as tolerated...BP soft today likely secondary to amount of fluid drawn off yesterday and low H/H) Monitor renal functions closely as the patient may be intravascularly depleted even in spite of having generalized anasarca. Had discussion this is likely due to cancer combined with liver mets. 5. Acute kidney injury: creatinine slightly elevated again today, will consult Nephrology. 6. Severe Protein calorie malnutrition due to advanced cancer and poor oral intake. Dietary consult pending and noting liver mets. 7. Tachycardia. Afebrile. It is sinus tachycardia, likely related to underlying cancer. 7. Leukocytosis combined with tachycardia and cough CT of abdomen/pelvis couple days ago suggested fluid pocket in lesser sac, 4L fluid drained yesterday. Drop in wbc today. Continue with Zosyn and await culture results. 8 . Metastatic colon cancer. Patient is following with oncologist at [place]. Patient has had several cycles of chemotherapy and is planned to be started on a new cycle of chemotherapy once approved by his insurance. The patient and understands that treatment was for palliation. (please see discussion below) 9. Deep venous thrombosis (DVT) prophylaxis. Patient is started on treatment for upper extremity deep venous thrombosis. Gastrointestinal (GI) prophylaxis has been ordered. 10. History of shingles, we will continue with valacyclovir. 11. Chronic pain, will continue with oxycodone once a day. Dispo: Today we will transfuse two units of PRBC, give additional fluids and consult Nephrology. I had a discussion with Dr. Bergeron (regional economic liaison for Dr. Bernal) regarding Mr Hernandez. I related to Mr. Hernandez and his that he is currently not a good candidate for further chemo due to his multisystem failure. However, this currently could be either a result of his most recent cancer treatment versus further deterioration of his spread of cancer. His daughters were present at bedside last night and he and his family is requesting that we continue with treatment as planned for now with Fluid support, diuretics, blood products, antibiotics ( will deescalate depending on cultures) and further treatment with the hope of getting him beyond the acute illness and eventual outpatient follow up with oncology. Prognosis: terminal Advanced Directives: Discussed and patient/ at bedside quite extensively and they expressed to me that their wish is for him to remain a full-code. I did discuss with them the option of Hospice and having the nurse navigator help us with planning for the future. They were open to the idea of having a discussion with the nurse navigator but were reluctant regarding hospice or a discssion regarding DNR. I informed them we want to respect their decision and support them the best we can. VS, I&O, 24H, Fishbone Vital Signs/I&O Vital Signs Date Time Temp Pulse Resp B/P (MAP) Pulse Ox O2 Delivery O2 Flow Rate FiO2 04/16/17 01:50 86/62 (70) 04/15/17 23:54 106 04/15/17 21:25 98.6 18 95 Nasal Cannula 2.0 I&O- Last 24 Hours up to 6 AM 04/17/17 06:00 Intake Total 750 ml Balance 750 ml Laboratory Data 24H LABS Laboratory Tests 2 04/15/17 10:20: Ammonia 27 04/15/17 16:45: Body Fluid Specific [place] 1.019, Body Fluid WBC (Auto) 47H, Body Fluid RBC ( Auto) < 2, Body Fluid Mononuclear Cells % Auto 68.1H, Fluid Polymorphonuclear Cell % Auto 31.9H, Body Fluid Glucose Source PERITONEAL, Body Fluid Glucose 156 , Body Fluid Protein Source PERITONEAL, Body Fluid Total Protein 1.5, Body Fluid Albumin Source PERITONEAL, Body Fluid Albumin 0.8, Body Fluid Triglyceride Source PERITONEAL, Body Fluid Triglycerides 831, Peritoneal Fluid Source PERITONEAL, Peritoneal Fluid Color WHITE, Peritoneal Fluid Appearance TURBID 04/16/17 06:03: Ammonia 36H 04/16/17 06:04: Nucleated Red Blood Cells % (auto) 0.0 CBC/BMP Laboratory Tests 04/16/17 06:04 Red Blood Count 2.37 L, Mean Corpuscular Volume 96.2 H, Mean Corpuscular Hemoglobin 31.2, Mean Corpuscular Hemoglobin Concent 32.5, Red Cell Distribution Width 19.9 H Microbiology Microbiology 04/11/17 Blood Culture - Preliminary, Resulted No Growth after 72 hours. All specime... 04/11/17 Blood Culture - Preliminary, Resulted No Growth after 72 hours. All specime... 04/15/17 Acid Fast Stain, Received Pending 04/15/17 Mycobacterial Culture, Received Pending 04/15/17 Fungal Smear, Received Pending 04/15/17 Fungal Culture, Received Pending 04/15/17 Gram Stain - Final, Resulted 04/15/17 Body Fluid Culture, Resulted Pending 04/15/17 Anaerobic Culture, Resulted Pending 04/11/17 Urine Culture - Final, Complete JACQUI ESCUDERO DO Apr 16, 2017 07:36
[2017-04-16] MEDS: SODIUM CHLORIDE 0.9% INJ 10 ML SYR IV SCH (09:00)
[2017-04-16] MEDS: valACYclovir HCL 500 MG TAB PO SCH (09:40)
[2017-04-16] MEDS: GABAPENTIN 100 MG CAP PO SCH ×2 (09:40→20:23)
[2017-04-16] MEDS: predniSONE 5 MG TAB PO SCH (09:40)
[2017-04-16] MEDS: SPIRONOLACTONE 50 MG TAB PO SCH ×2 (09:40→20:23)
[2017-04-16] MEDS: PANTOPRAZOLE 40MG TAB (PROTONIX) PO SCH ×2 (09:40→20:23)
[2017-04-16] MEDS: MEGESTROL SUSP 400 MG/10 ML UDC PO SCH (09:41)
[2017-04-16] MEDS: ENOXAPARIN 100MG/1ML SYRINGE (J1650) SC SCH (09:44)
[2017-04-16] MEDS: oxyCODONE 10 MG CR TAB PO SCH ×2 (09:44→20:24)
[2017-04-16] MEDS: SODIUM CHLORIDE 0.9% INJ 10 ML SYR IV PRN ×2 (12:10→16:03)
[2017-04-16] MEDS: ONDANSETRON 4MG/2ML VIAL (J2405) IV PRN (13:26)
[2017-04-16 14:00] VITALS: BP 114/64
[2017-04-16] MEDS ORDERED: NS 500 ML IV ONE (14:00)
[2017-04-16 22:04] VITALS: BP 109/62
[2017-04-16 23:40] VITALS: BP 126/71
[2017-04-17] VITALS (8 sets, daily range): BP systolic 116–130; BP diastolic 66–84
[2017-04-17] MEDS: LACTULOSE 20 GM/30 ML SYRUP UD PO SCH ×6 (00:51→20:06)
[2017-04-17] MEDS: PIPERACILLIN/TAZOBACTAM SOD 3.375 GM in D5W 50 ML IV SCH ×3 (03:33→18:26)
[2017-04-17] MEDS: NS 1,000 ML IV SCH (05:46)
[2017-04-17 06:03] LABS: MEAN CORPUSCULAR HEMOGLOBIN 30.3 pg (27.0-33.0); MEAN CORPUSCULAR HGB CONC 32.7 g/dl (32.0-36.5); MEAN CORPUSCULAR VOLUME 92.6 fl (80.0-96.0); PLATELET COUNT, AUTOMATED 264 10^3/uL (150-450); RED CELL DISTRIBUTION WIDTH 19.9 % (11.5-14.5); WHITE BLOOD COUNT 14.9 10^3/uL (4.0-10.0)
[2017-04-17 06:14] LABS: INR 1.57
[2017-04-17 06:25] LABS: ALBUMIN 1.7 GM/DL (3.2-5.2); ALBUMIN/GLOBULIN RATIO 0.77 (1.00-1.93); BILIRUBIN,TOTAL 0.7 MG/DL (0.2-1.0); CALCIUM LEVEL 7.3 MG/DL (8.5-10.1); CREATININE FOR GFR 1.78 MG/DL (0.70-1.30); POTASSIUM SERUM 3.2 MEQ/L (3.5-5.1); TOTAL PROTEIN 3.9 GM/DL (6.4-8.2)
[2017-04-17] MEDS ORDERED: POTASSIUM CHLORIDE 10 MEQ SR TABLET PO ONE (08:15)
--- NOTE | 2017-04-17 08:51 | IPNPDOC ---
Date Seen The patient was seen on 04/17/17. Progress Note SUBJECTIVE: Patient is a 56 yo male seen at bedside. Transferred to PCU last evening because of intensity of nursing care required. Says he rested better last evening. Denies: f/c/r, n/v/d, CP, productive sputum. at bedside and she had several questions we addressed regarding his current labs and plan (outlined below) OBJECTIVE PHYSICAL EXAMINATION: VITAL SIGNS: Please see below. GENERAL: NAD, Pleasant HEENT: PERRLA, throat clear, neck supple, no JVD CARDIOVASCULAR: RRR. RESPIRATORY: CTA Bilaterally. ABDOMINAL: soft, distended, mild tenderness no rebound with positive bowel sounds EXTREMITIES: 3+edema/no calf tenderness NEUROLOGICAL: CN'S II-XII grossly in tact PSYCHOLOGICAL: negative LABORATORY DATA: Please see below. AMMONIA LEVEL TODAY: 36 again today MICROBIOLOGY: Please see below. IMAGING: [ DVT prophylaxis ordered?: YES, lovenox renally dosed ASSESSMENT AND PLAN: This is a 56 yo male with extensive mets from colorectal cancer (involving the liver, adrenals and abdominal lymph nodes and vertebra). PROBLEMS: 1. Acute anemia: will again transfuse 1uPRBCs 2. Upper extremity deep venous thrombosis: continue wt and renally dosed lovenox 90sq daily. Check stool for blood. 3. Metabolic Encephalopathy: due to underlying illness and elevated ammonia. Continue adjusting lactulose with hold parameters if >BMs per day. MRI report that produced states he has liver and adrenal mets (copy is placed on the chart). 4. Anasarca due to severe protein calorie malnutrition related to colon cancer. Continue Lasix twice daily with spironolactone (appreciate Dr. Arceo's input) Monitor renal functions closely as well I&O's Had discussion this is likely due to cancer combined with liver mets. 5. Hypoalbuminemia: will continue with albumin infusions today, reevaluate tomorrow. 6. Acute kidney injury: creatinine improved from yesterday. Appreciate Dr. Arceo's input. 7. Severe Protein calorie malnutrition due to advanced cancer and poor oral intake. Dietary consult pending and noting liver mets. 8. Tachycardia: better rate controlled with fluid status and BP better 9. Hypokalemia: supplemented, will continue to monitor 10. Leukocytosis: trending downward. Continue with Zosyn and await culture results. Consult ID: Dr. Fierro to see patient tomorrow. 11 . Metastatic colon cancer. Patient is following with oncologist at [place]. Patient has had several cycles of chemotherapy and is planned to be started on a new cycle of chemotherapy once approved by his insurance. The patient and understands that treatment was for palliation. (please see discussion below) 12. Deep venous thrombosis (DVT) prophylaxis. Patient on treatment for upper extremity deep venous thrombosis. 13. History of shingles, we will continue with valacyclovir. 14. Chronic pain, will continue with oxycodone once a day. Dispo summary: 1uPRBC today 4 more bottles of Albumin today replete K+ Adjust Lactulose Consults: Marielos (Vadim to see tomorrow) Encouraged to discuss the progress he has had with Oncologist (Dr. Bernal) on Tuesday. Prognosis: terminal / guarded for this hospital admission Advanced Directives: Discussed and patient/ at bedside quite extensively and they expressed to me that their wish is for him to remain a full-code. I did discuss with them the option of Hospice and having the nurse navigator help us with planning for the future. They were open to the idea of having a discussion with the nurse navigator but were reluctant regarding hospice or a discussion regarding DNR at this time. I informed them we want to respect their decision and support them the best we can. VS, I&O, 24H, Fishbone Vital Signs/I&O Vital Signs Date Time Temp Pulse Resp B/P (MAP) Pulse Ox O2 Delivery O2 Flow Rate FiO2 04/17/17 08:00 97.4 93 16 130/72 (91) 95 Nasal Cannula 2.0 Laboratory Data 24H LABS Laboratory Tests 2 04/16/17 16:01: Urine Random Creatinine 86.7, Urine Random Sodium 57, Urine Random Chloride 42, Lactic Acid Level 1.6 04/17/17 05:39: Nucleated Red Blood Cells % (auto) 0.0, Prothrombin Time 19.2H, Prothromb Time International Ratio 1.57, Anion Gap 13, Glomerular Filtration Rate 42.0L, Blood Urea Nitrogen 36H, Creatinine 1.78H, Sodium Level 139, Potassium Level 3.2L, Chloride Level 105, Carbon Dioxide Level 21, Calcium Level 7.3L, Aspartate Amino Transf (AST/SGOT) 38H, Alanine Aminotransferase (ALT/SGPT) 11L, Alkaline Phosphatase 161H, Total Bilirubin 0.7, Total Protein 3.9L, Albumin 1.7#L, Ammonia 36H, Albumin/Globulin Ratio 0.77L CBC/BMP Laboratory Tests 04/17/17 01:36 04/17/17 05:39 Red Blood Count 2.71 L, Mean Corpuscular Volume 92.6, Mean Corpuscular Hemoglobin 30.3, Mean Corpuscular Hemoglobin Concent 32.7, Red Cell Distribution Width 19.9 H, Calcium Level 7.3 L, Aspartate Amino Transf (AST/SGOT ) 38 H, Alanine Aminotransferase (ALT/SGPT) 11 L, Alkaline Phosphatase 161 H, Total Bilirubin 0.7, Total Protein 3.9 L, Albumin 1.7 #L Microbiology Microbiology 04/11/17 Blood Culture - Final, Complete NO GROWTH AFTER 5 DAYS 04/11/17 Blood Culture - Final, Complete NO GROWTH AFTER 5 DAYS 04/15/17 Acid Fast Stain, Received Pending 04/15/17 Mycobacterial Culture, Received Pending 04/15/17 Fungal Smear, Received Pending 04/15/17 Fungal Culture, Received Pending 04/15/17 Gram Stain - Final, Complete 04/15/17 Body Fluid Culture - Final, Complete 04/15/17 Anaerobic Culture - Final, Complete 04/11/17 Urine Culture - Final, Complete JACQUI ESCUDERO DO Apr 17, 2017 08:51
[2017-04-17] MEDS: MEGESTROL SUSP 400 MG/10 ML UDC PO SCH (08:56)
[2017-04-17] MEDS: valACYclovir HCL 500 MG TAB PO SCH (08:57)
[2017-04-17] MEDS: ENOXAPARIN 100MG/1ML SYRINGE (J1650) SC SCH (08:57)
[2017-04-17] MEDS: oxyCODONE 10 MG CR TAB PO SCH ×2 (08:58→20:07)
[2017-04-17] MEDS: GABAPENTIN 100 MG CAP PO SCH ×2 (08:58→20:07)
[2017-04-17] MEDS: PANTOPRAZOLE 40MG TAB (PROTONIX) PO SCH ×2 (08:59→20:07)
[2017-04-17] MEDS: predniSONE 5 MG TAB PO SCH (08:59)
[2017-04-17] MEDS: SODIUM CHLORIDE 0.9% INJ 10 ML SYR IV SCH (09:14)
[2017-04-17] MEDS: ONDANSETRON 4MG/2ML VIAL (J2405) IV PRN (14:09)
--- NOTE | 2017-04-17 18:15 | CR ---
DATE OF CONSULTATION: 04/06/2017 CONSULTATION REPORT FOR: Dr. Jamil Mariano REASON FOR CONSULTATION: Management of acute kidney injury. CHIEF COMPLAINT: Progressive fatigue and increased generalized edema. HISTORY OF PRESENT ILLNESS: Mr. Matty Hernandez is a 56-year-old male with past medical history of stage IV colon cancer diagnosed in 2014 with initial ileostomy and subsequent multiple complications requiring ileostomy reversal. He follows with his oncologist, Dr. Bernal, and reports his last active chemotherapy was in February 2017 and was held due to recent episode of pneumonia requiring hospitalization. The patient was discharged home in early March 2017 with antibiotics and prednisone. He states he had his first paracentesis done about two months prior. At home, the patient noticed generalized progressive edema, most prominent in his left arm and in his bilateral lower extremities. He noticed weeping from the legs and became progressively fatigued and tired. He began to have trouble walking and so was brought to the emergency room and admitted on 04/11/2017. His admission creatinine was 1.6. He was found to have a left upper extremity deep vein thrombosis (DVT) and was started on anticoagulation. He had a CT scan that demonstrated a large fluid collection that appeared to be loculated without free flowing ascites. His bladder was noted to be distended. He had a Abrraza placed with 800 mL output. Laboratories are significant for a rising white count to 22,000, anemia, deteriorating glomerular filtration rate (GFR), hyperammonemia, hypoalbuminemia. The patient had approximately four liters of reportedly milky fluid drained on paracentesis yesterday. Overnight, last night, he was hemodynamically unstable, lowest recorded systolic was 78/58 with tachycardia. The patient's urine output has been poor for the past three days. I was called to see the patient for acute kidney injury. Today, at the bedside, the patient complains of generalized fatigue and weakness, abdominal tenderness. PAST MEDICAL HISTORY: 1. Stage IV colon cancer with metastasis to lymph nodes and per the , he may have liver metastasis, although this is unclear to me on imaging available at present for review. 2. Hypertension. 3. Shingles. 4. History of recent pneumonia. 5. Anemia. 6. Chronic kidney disease (CKD), stage II with baseline creatinine in the low 1s. PAST SURGICAL HISTORY: 1. Ileostomy in 2014 with subsequent reversal due to anastomotic breakdown. 2. Secondary closure of abdominal wall dehiscence in June 2014. 3. Left subclavian Port-a-Cath in 2014. 4. Exploratory laparotomy and lysis of adhesions March of 2016. 5. Right hemicolectomy in June of 2014. 6. Mediastinoscopy and bronchoscopy in November of 2016 which showed metastatic colon cancer to mediastinal lymph nodes. ALLERGIES: FENTANYL. SOCIAL HISTORY: The patient does not smoke, abuse alcohol or recreational drugs. and has two twin daughters. FAMILY HISTORY: The patient denies significant family history. REVIEW OF SYSTEMS: Positive for generalized fatigue, malaise, deconditioning, abdominal distention, ascites, edema, poor appetite. Review of systems is negative for chest pain, palpitations, shortness of breath at rest, cough, diarrhea, vomiting, fevers. He does complain of swelling in the legs bilaterally and in the left arm. Review of systems is also positive for recent urinary retention requiring Barraza. Remainder of review of systems is negative. HOME MEDICATIONS: - furosemide 20 mg by mouth daily - Megace 625 mg by mouth every morning - prednisone - gabapentin 300 mg by mouth three times a day - multivitamin - Zofran as needed - OxyContin 10 mg by mouth twice a day - Protonix 40 mg by mouth twice a day - spironolactone 50 mg by mouth twice a day - valacyclovir 1 gram by mouth daily PHYSICAL EXAMINATION: VITAL SIGNS: Temperature 98.1, pulse 98, respiratory rate 19, blood pressure 114/64, saturating 95% on two liters nasal cannula. INTAKE AND OUTPUT: Urine output today 775 mL, urine output yesterday 575 mL with eight recorded bowel movements, and urine output 04/14/2017 400 mL with four recorded bowel movements. Weight on the bed scale has been significantly down-trending and he is in cumulative net negative balance over the course of this admission. The patient is seen at the bedside. His and his two daughters are present. He is awake and alert and conversational but he appears older than stated age and chronically ill-appearing and looks exhausted and fatigued. GENERAL: He is awake and alert and answers questions appropriately but is a little slow in his responses. HEAD AND NECK: Extraocular muscles are intact. The patient makes eye contact. His tongue is dry. Neck is supple. Ears and nose are unremarkable. There is no jugular venous distention. CARDIAC: S1, S2, mild tachycardia, 2+ radial pulse, pitting edema present in the lower extremities bilaterally, 2+. LUNGS: There are diminished breath sounds at the bilateral bases but especially at the right. He otherwise appears comfortable on room air. ABDOMEN: Distended and generalized tender to palpation. There is a dressing in place in the left lateral quadrant. There are bowel sounds present in all four quadrants and there is an incisional hernia. GENITOURINARY: There is a Barraza catheter present with some urine output. EXTREMITIES: There is pitting edema present bilaterally, 2+ and there is chronic venous stasis changes. NEUROLOGIC: The patient is a little slow to respond but he mostly answers questions quite appropriately and can give some history. He is interactive and follows commands. CHEST: There is a Port-a-Cath present in the left chest wall. LABORATORY DATA: White count 19.2, platelets 286, hemoglobin 7.4. Sodium 138, potassium 3.4, bicarbonate 24, BUN 42, creatinine 2.5, glucose 112, corrected calcium 9.4, ammonia 36, albumin 1.3, lactic acid 1.6. UA negative for blood and protein. Abdominal fluid notable for very high triglycerides 831 mg/dL and for serum albumin to ascitic gradient of less than 1.1. MICROBIOLOGY: Blood cultures 04/11/2017 no growth for five days. Urine culture no growth. Ascitic culture pending. IMAGING STUDIES: CT abdomen and pelvis 04/11/2017 shows there is no free flowing ascites but there is a large fluid collection in the lesser sac and around the pancreatic bed and the medial aspect of the liver which is loculated in nature. There is mesenteric periaortic and retroperitoneal adenopathy. There is no hydronephrosis or renal obstruction. The bladder is distended. CT chest 04/13/2017 without contrast shows there are bilateral pleural effusions , right greater than left. There is mediastinal adenopathy. INPATIENT MEDICATIONS: The patient is receiving normal saline at 100 mL an hour, Zosyn 3.375 grams IV every eight hours. I have discontinued his IV Lasix and I have discontinued his aldactone. I have reduced the frequently of his Lovenox to 90 mg subcutaneous daily. 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 1. Oligoanuric acute renal failure. The patient's admission creatinine was 1.6, and over the course of the past five days, his creatinine has progressively worsened as he has been actively diuresed with IV Lasix and aldactone. He is in a net negative fluid balance over the course of this admission and I suspect that he is intravascularly volume depleted. He also has a clinical picture of sepsis with a rising white count and hemodynamic instability after four liter paracentesis done yesterday. At this point, I recommend discontinuing his diuretics including IV Lasix and aldactone. He is severely anemic with hemoglobin of 7.4 and I suggest to volume expand him with blood product support with packed red blood cells and to continue normal saline at 100 mL an hour. He has severe hypoalbuminemia and we will also give him albumin 25% 25 grams every eight hours. His mean arterial pressure (MAP) is above 65 at present so no need for midodrine. 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 His urine output today does seem improved after volume expansion as compared to the past two days when he was oligoanuric. While we hydrate the patient and hold his diuretics, we will need to keep a close watch on his respiratory status. At the present, he is saturating well on two liters. He is also having significant diarrheal output from his lactulose with eight recorded bowel movements yesterday which is likely also furthering his intravascular volume depletion. I had a discussion with his and his daughters at the bedside regarding his worsening renal function. Given his background advanced stage IV metastatic colon cancer, his overall prognosis is quite poor. I hope that his renal function will improve with aggressive volume expansion and that he does not develop dialysis needs. 2. Leukocytosis. The patient's white count has been elevated. He has been on steroids. However, his white count has been rising. Peak was 22,000 yesterday and today down to 19,000. His blood cultures were negative and ascitic culture is pending. He remains on Zosyn which I think is reasonable to cover him from peritonitis. Given his hemodynamic instability overnight and concern for sepsis, hold all diuretics at this time and continue with IV fluids. His lactic this evening was 1.6. 3. Loculated ascites, likely chylous ascites given the very high triglycerides of greater than 800 mg/dL. CT scan showed loculated ascites rather than free flowing ascites and I suspect that this is chylous ascites secondary to his known malignancy. What is not clear to me is if he has cirrhosis or not. His albumin is markedly low. He is started on albumin 25% infusions 25 grams every eight hours for intravascular volume expansion. Since he does not have a typical ascites, rather he has chylous ascites, I do not see that there is a role for octreotide infusion. His ammonia levels have been high which does suggest that he may be cirrhotic. He has been receiving lactulose for the same. 4. Anemia. Transfuse two units packed red blood cells (PRBCs). 5. Left upper extremity deep vein thrombosis (DVT). We will reduce Lovenox in view of acute kidney injury. DISPOSITION: I hope that with intravascular volume expansion the patient's urine output and renal function will improve and that he does not develop dialysis needs. Given his background of metastatic stage IV colon cancer, he would be a poor candidate for dialysis. If the need for hemodialysis should arise, I will have a discussion with his regarding the same and see what the family wishes. Thank you for involving me in the care of this patient. I will be happy to see the patient along with you. KINJAL
--- NOTE | 2017-04-17 19:59 | IPN ---
DATE: 04/17/2017 The patient is seen this morning at the bedside. His and daughters are present. He complains of abdominal cramping and bowel movements associated with lactulose, otherwise denies any shortness of breath or nausea or vomiting. His urine output has improved from prior and I had a discussion with his at the beside regarding the same. He is receiving another unit of packed red blood cells today and continues on every 8 hours albumin infusion. Review of systems is positive for improving oral intake, abdominal cramping, edema, fatigue, abdominal distention. Review of systems is negative for fevers, chills, vomiting, palpitations. Remainder of review of systems is negative. PHYSICAL EXAMINATION: Temperature 97.4, pulse 93, respiratory rate 16, blood pressure 130/72, saturating 95-97% on 2 liters nasal cannula. INTAKE AND OUTPUT: Urine output yesterday was 775 mL, today since 7 a.m. in the past 5 hours he has made an additional 700 mL with three recorded bowel movements, he is currently in positive fluid balance. EXAM: Patient is seen at the bedside, appears fatigued, chronically ill, older than stated age. Extraocular muscles are intact. The lips and tongue are dry. He appears to be a mouth breather. The ears, nose, and throat are unremarkable. The neck is supple, there is no significant jugular venous distention. CARDIAC: S1, S2, regular rate, 2+ radial pulse. Pitting edema present in the lower extremities to the thigh. ABDOMEN: Distended, protuberant, and tender to palpation. There is a left- sided incisional hernia. GENITOURINARY: Barraza catheter in place with urine output. There is a port-a-cath in the left chest wall. NEUROLOGIC: Slow to respond but alert and oriented. PSYCHIATRIC: Appropriate mood and affect. LABORATORY DATA: White count 14.9, hemoglobin 8.2, platelets 264. Sodium 139, potassium 3.2, bicarbonate 21, BUN 36, creatinine 1.7, ammonia 36, albumin 1.7. Microbiology: Ascitic culture is pending. INPATIENT MEDICATIONS: His Lasix and Aldactone were discontinued yesterday by myself. He received a dose of potassium chloride today. His lactulose frequency was increased per the primary team. He remains on IV Zosyn and albumin infusions. I have discontinued his normal saline. ASSESSMENT AND PLAN: 1. Nonoliguric acute renal failure, likely secondary to intravascular volume depletion status post 4 liter paracentesis and episode of hemodynamic instability with documented lowest blood pressure 70s/40s with tachycardia. The patient has hemodynamically improved over the past 24 hours. I will continue him on albumin infusions 25 grams every 8 hours. At this point, as his blood pressure is stable, I will discontinue his IV fluids to reduce risk of further edema or respiratory decompensation. Continue to hold Lasix and Aldactone at this time. 2. 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 His abdomen is again distended on exam and likely his loculated chylous ascites must have reaccumulated. No role for octreotide in chylous ascites as far as I am aware. He does have other signs of liver dysfunction including severe hypoalbuminemia and recurrent hyperammonemia requiring lactulose. 3. Anasarca. Given his intravascular volume depletion, will hold IV Lasix at this time. As he is hemodynamically stable, I have discontinued his IV fluid so that we do not further decompensate his overall volume status. 4. Leukocytosis. His abdomen is tender on exam. He continues on Zosyn which is appropriate coverage for possible peritonitis. His ascitic culture is pending. Dr. Fierro has been consulted to see the patient. 5. Anemia. Agree with packed red blood cell transfusion. 6. Stage IV colon cancer. The patient overall has a poor prognosis and I had a discussion with his and daughters at the bedside regarding the same. MTDD
[2017-04-17] MEDS: SODIUM CHLORIDE 0.9% INJ 10 ML SYR IV PRN (23:13)
[2017-04-18] VITALS (8 sets, daily range): BP systolic 118–148; BP diastolic 72–88
[2017-04-18] MEDS: LACTULOSE 20 GM/30 ML SYRUP UD PO SCH ×6 (02:00→21:06)
[2017-04-18] MEDS: PIPERACILLIN/TAZOBACTAM SOD 3.375 GM in D5W 50 ML IV SCH ×3 (02:10→18:59)
[2017-04-18 05:48] LABS: MEAN CORPUSCULAR HEMOGLOBIN 30.6 pg (27.0-33.0); MEAN CORPUSCULAR VOLUME 92.9 fl (80.0-96.0); PLATELET COUNT, AUTOMATED 238 10^3/uL (150-450); RED CELL DISTRIBUTION WIDTH 19.6 % (11.5-14.5)
[2017-04-18 06:10] LABS: ALBUMIN 2.3 GM/DL (3.2-5.2); ALBUMIN/GLOBULIN RATIO 1.21 (1.00-1.93); ALKALINE PHOSPHATASE 161 U/L (45-117); ALT/SGPT 12 U/L (12-78); ANION GAP 10 MEQ/L (8-16); AST/SGOT 32 U/L (7-37); BILIRUBIN,TOTAL 0.7 MG/DL (0.2-1.0); BLOOD UREA NITROGEN 27 MG/DL (7-18); CALCIUM LEVEL 7.9 MG/DL (8.5-10.1); CARBON DIOXIDE LEVEL 22 MEQ/L (21-32); CHLORIDE LEVEL 107 MEQ/L (98-107); GLOMERULAR FILTRATION RATE > 60.0 (>56); GLUCOSE, FASTING 88 MG/DL (70-105); POTASSIUM SERUM 3.6 MEQ/L (3.5-5.1); SODIUM LEVEL 139 MEQ/L (136-145); TOTAL PROTEIN 4.2 GM/DL (6.4-8.2)
[2017-04-18] MEDS: ENOXAPARIN 100MG/1ML SYRINGE (J1650) SC SCH ×2 (09:25→21:10)
[2017-04-18] MEDS: oxyCODONE 10 MG CR TAB PO SCH ×2 (09:26→21:09)
[2017-04-18] MEDS: valACYclovir HCL 500 MG TAB PO SCH (09:26)
[2017-04-18] MEDS: MEGESTROL SUSP 400 MG/10 ML UDC PO SCH (09:26)
[2017-04-18] MEDS: rifAXIMin 550 MG TAB (XIFAXAN) PO SCH ×2 (09:27→21:09)
[2017-04-18] MEDS: predniSONE 5 MG TAB PO SCH (09:27)
[2017-04-18] MEDS: PANTOPRAZOLE 40MG TAB (PROTONIX) PO SCH ×2 (09:27→21:08)
[2017-04-18] MEDS: GABAPENTIN 100 MG CAP PO SCH ×2 (09:27→21:08)
[2017-04-18] MEDS: SODIUM CHLORIDE 0.9% INJ 10 ML SYR IV SCH (09:28)
--- NOTE | 2017-04-18 10:48 | IPNPDOC ---
Date Seen The patient was seen on 04/18/17. Progress Note SUBJECTIVE: Patient is a 56 yo male seen at bedside. Remains in PCU on TM. No overnight issues, but concern raised for multiple bowel movements. Denies: f/c/r, n/v/d, CP, productive sputum. at bedside and she had several questions we addressed regarding his current labs and plan (outlined again below) OBJECTIVE PHYSICAL EXAMINATION: VITAL SIGNS: Please see below. GENERAL: NAD, Pleasant HEENT: PERRLA, throat clear, neck supple, no JVD CARDIOVASCULAR: RRR. RESPIRATORY: CTA Bilaterally. ABDOMINAL: soft, distended, mild tenderness no rebound with positive bowel sounds EXTREMITIES: 3+edema/no calf tenderness NEUROLOGICAL: CN'S II-XII grossly in tact PSYCHOLOGICAL: negative LABORATORY DATA: Please see below. AMMONIA LEVEL TODAY: 42 MICROBIOLOGY: Please see below. DVT prophylaxis ordered?: YES, lovenox renally dosed ASSESSMENT AND PLAN: This is a 56 yo male with extensive mets from colorectal cancer (involving the liver, adrenals and abdominal lymph nodes and vertebra). PROBLEMS: 1. Acute anemia: Shoed some improvement from yesterday. However, will again transfuse 1uPRBCs 2. Upper extremity deep venous thrombosis: continue wt and renally dosed lovenox 90sq daily. Check stool for blood. 3. Metabolic Encephalopathy: due to underlying illness and elevated ammonia. Continue adjusting lactulose with hold parameters if >3BMs per day. Will add on Xifaxan MRI report that produced states he has liver and adrenal mets (copy is placed on the chart). 4. Anasarca due to severe protein calorie malnutrition related to colon cancer. Will give two more bottles of albumin today. His albumin level is now improved to 2.3. Appreciate Dr. Arceo's input regarding diuretics Monitor renal functions closely as well I&O's Had discussion this is likely due to cancer combined with liver mets. 5. Hypoalbuminemia: Showing some improvement, will continue with albumin infusions today, reevaluate tomorrow. 6. Acute kidney injury: creatinine improved from yesterday. Appreciate Dr. Arceo's input. 7. Severe Protein calorie malnutrition due to advanced cancer and poor oral intake. Dietary consult pending and noting liver mets: continue ensure with meals. 8. Tachycardia: better rate controlled with fluid status and BP better 9. Hypokalemia: supplemented, will continue to monitor 10. Leukocytosis: trending downward. Continue with Zosyn and await culture results. Consult ID: Dr. Fierro to see patient today. 11 . Metastatic colon cancer. Patient is following with oncologist at [facility]. Patient has had several cycles of chemotherapy and is planned to be started on a new cycle of chemotherapy once approved by his insurance. The patient and understands that treatment was for palliation. (please see discussion below) 12. Deep venous thrombosis (DVT) prophylaxis. Patient on treatment for upper extremity deep venous thrombosis. 13. History of shingles, we will continue with valacyclovir. 14. Chronic pain, will continue with oxycodone once a day. Dispo summary: 1uPRBC today 2 more bottles of Albumin today replete K+ when needed Adjust Lactulose and add Xifaxan Consults: Marielos / Vadim Encouraged to discuss the progress he has had with Oncologist (Dr. Bernal) on today. Prognosis: terminal / guarded for this hospital admission Advanced Directives: Discussed and patient/ at bedside previously and they expressed to me that their wish is for him to remain a full-code. I did discuss with them the option of Hospice and having the nurse navigator help us with planning for the future. They were open to the idea of having a discussion with the nurse navigator but were reluctant regarding hospice or a discussion regarding DNR at this time. I informed them we want to respect their decision and support them the best we can. VS, I&O, 24H, Fishbone Vital Signs/I&O Vital Signs Date Time Temp Pulse Resp B/P (MAP) Pulse Ox O2 Delivery O2 Flow Rate FiO2 04/18/17 09:26 18 04/18/17 08:15 Nasal Cannula 2.0 04/18/17 05:00 98.6 91 135/75 (95) 98 Laboratory Data 24H LABS Laboratory Tests 2 04/18/17 05:30: Nucleated Red Blood Cells % (auto) 0.0, Anion Gap 10, Glomerular Filtration Rate > 60.0, Blood Urea Nitrogen 27H, Creatinine 1.30, Sodium Level 139, Potassium Level 3.6, Chloride Level 107, Carbon Dioxide Level 22, Calcium Level 7.9L, Aspartate Amino Transf (AST/SGOT) 32, Alanine Aminotransferase (ALT/SGPT) 12, Alkaline Phosphatase 161H, Total Bilirubin 0.7, Total Protein 4.2L, Albumin 2.3#L, Ammonia 42H, Albumin/Globulin Ratio 1.21 CBC/BMP Laboratory Tests 04/18/17 05:30 Red Blood Count 2.81 L, Mean Corpuscular Volume 92.9, Mean Corpuscular Hemoglobin 30.6, Mean Corpuscular Hemoglobin Concent 33.0, Red Cell Distribution Width 19.6 H, Calcium Level 7.9 L, Aspartate Amino Transf (AST/SGOT ) 32, Alanine Aminotransferase (ALT/SGPT) 12, Alkaline Phosphatase 161 H, Total Bilirubin 0.7, Total Protein 4.2 L, Albumin 2.3 #L Microbiology Microbiology 04/11/17 Blood Culture - Final, Complete NO GROWTH AFTER 5 DAYS 04/11/17 Blood Culture - Final, Complete NO GROWTH AFTER 5 DAYS 04/15/17 Acid Fast Stain, Received Pending 04/15/17 Mycobacterial Culture, Received Pending 04/15/17 Fungal Smear, Received Pending 04/15/17 Fungal Culture, Received Pending 04/15/17 Gram Stain - Final, Complete 04/15/17 Body Fluid Culture - Final, Complete 04/15/17 Anaerobic Culture - Final, Complete 04/11/17 Urine Culture - Final, Complete JACQUI ESCUDERO DO Apr 18, 2017 10:48
--- NOTE | 2017-04-18 13:59 | IPN ---
DATE: 04/18/2017 SUBJECTIVE: The patient is seen this morning at the bedside. He continues to look very fatigued, chronically ill and slow to respond. He complains of cramping pain in the abdomen. He denies any shortness of breath at rest. He has not gotten out of bed for the past several days and has been tolerating oral intake. REVIEW OF SYSTEMS: Limited, but the patient denies fevers, chills, vomiting. He complains of crampy abdominal pain and recurrent bowel movements with lactulose. He denies any shortness of breath at rest, chest pain or palpitations. VITAL SIGNS: Temperature 98.5, pulse 87, respiratory rate 18, blood pressure 128/73, saturating 98% on 2 liters nasal cannula. INTAKE AND OUTPUT: Intake yesterday 1904, urine output 1300, 4 recorded bowel movements, positive 600 mL fluid balance. Weight on the bed scale today is 87.7 kg, decreased from prior. PHYSICAL EXAMINATION: The patient is seen at the bedside. His family members are present. He appears fatigued, chronically ill, older than stated age and deconditioned. His extraocular muscles are intact. His tongue is dry, but he appears to be a mouth breather. The neck is supple. There is no significant jugular distention. Cardiac: S1, S2, regular rate. Radial pulses are palpable. There is pitting edema present in the lower extremities below the knee and also in the dependent areas at the hips. Abdomen: Distended, protuberant. The patient grimaces to palpation. Lungs: Anterior auscultation only. Symmetric air entry bilaterally. The patient is comfortable on 2 liters nasal cannula. No accessory muscle use. Genitourinary: Barraza catheter in place with urine output. Neurologic: Slow to respond, but alert and answers questions with short appropriate answers. LABS: White count 11, hemoglobin 8.6, platelets 238. Sodium 139, potassium 3.6 , bicarbonate 22, BUN 27, creatinine 1.3, albumin 2.3, ammonia 42, glucose 88. MICROBIOLOGY: Ascitic culture with on aerobic or anaerobic growth to date. INPATIENT MEDICATIONS: The patient is started on Rifaximin per the primary team. There is no other significant change in the medications. ASSESSMENT AND PLAN: 1. Nonoliguric acute kidney injury (LUISA), resolving. Likely secondary to intravascular volume depletion. The patient has been off of IV fluids for the past 24 hours. He has hemodynamically remained stable. His albumins are now greater than 2. 2. Anasarca, lower extremity pitting edema, with intravascular volume depletion. His intravascular volume status has now improved with use of albumin and previous IV fluids. I will continue to hold his Lasix and Aldactone at this time and we will monitor him daily for resumption of diuretics. His oxygen requirements have remained stable. 3. 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 Per the family, he is known to have liver metastasis, although we do not have imaging available that confirms this. 4. Leukocytosis. His white count is down trending. He continues on Zosyn. The ascitic culture, aerobic and anaerobic, is with no growth thus far. 5. Anemia, improved with packed red blood cell transfusion. 6. Stage IV colon cancer. The patient overall has a poor prognosis. He is at risk for recurrent LUISA going forward and I had a discussion with the and daughter at the bedside regarding the same. HAWAD
--- NOTE | 2017-04-18 17:36 | REP ---
ULTRASOUND-GUIDED PARACENTESIS: The procedure was performed under the direct supervision of Dr. Tenorio. The risks and benefits of the procedure were explained to the patient and informed consent was obtained. The largest pocket of fluid was localized in the left upper quadrant using ultrasound guidance. The skin was prepped and draped in a sterile fashion. 1% Lidocaine was used as a local anesthetic. An #8-[place] [id number]-[id number] catheter was inserted using trocar technique. 3250 mL of cloudy white fluid was withdrawn with the samples sent to the lab for analysis. The patient tolerated the procedure well and there were no immediate complications. Reviewed by MARTA Keenan 04/18/2017 06:09 PEdited and Signed by Dennis Tenorio MD 04/18/2017 06:47 P
--- NOTE | 2017-04-18 18:37 | CR.PDOC ---
[facility] Consultation Consultation Infectious disease Consult Note Date of Consultation: 04/18/2017 Reason for Consultation: Persistent leukocytosis Referring Provider: Dr. Jamil Mariano PCP: Dr. Gloria HISTORY OF PRESENT ILLNESS: Mr. Hernandez is a 56-year-old male with stage IV colon cancer who presented to the hospital on 04/11/2017 because of worsening anasarca, inability to stand by himself, and intermittent confusion. He is accompanied in the room by his and daughter who also provides much of the history. Upon admission he did have a leukocytosis of 16.6 which then spiked to 222.9 and 04/15/2017. He was then started on Zosyn, and it is progressively improved over the past few days, and it is 11.0 today. Upon admission it was originally assumed that his leukocytosis was secondary to the fact that he was on prednisone, however his prednisone dose was reduced upon admission and then he had a jump a few days into his hospitalization, therefore infectious disease was consulted. Apparently he was started on prednisone back in February during a hospitalization at [facility] where he was told that he had bronchitis/ pneumonia, and he was started on antibiotics and prednisone. They cannot remember which antibiotics he was on, however they're subsequently discontinued. They were told that he should only have a slow taper off the prednisone, he was originally on 30 mg daily, this was reduced to 20 mg daily approximately 2 weeks ago, and now it has been reduced to 5 mg daily during this hospitalization. During this entire time, including his previous hospitalization, he denies any fevers, chills, nausea, vomiting, cough, chest discomfort, shortness of breath, or sputum production. He has not had any recorded fevers while inpatient. He did have multiple paracentesis prior to this hospitalization, and then he also had 1 additional paracentesis performed while here on 04/15/2017 where 3250 mL of fluid was drawn off, notably, this is also the same day that he had hypotension and a spike in his leukocytosis. 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 HEENT: Patient denies blurred or double vision, transient visual disturbances, postnasal drip, epistaxis, sore throat, difficulty chewing or swallowing food. Cardiovascular: Patient denies chest discomfort/pain, palpitations, exertional dyspnea, orthopnea, he does have significant edema of the lower extremities, he is unable walk. Respiratory: Patient currently denies dyspnea, wheezing, cough, hemoptysis, sputum production. Gastrointestinal: He does have significant diarrhea, although he is on lactulose for his elevated ammonia. Patient denies nausea, vomiting, abdominal pain, melena, hematochezia, hematemesis, jaundice. Musculoskeletal: He does admit to joint stiffness, however denies any joint pain , swelling PHYSICAL EXAMINATION: Vitals: Temperature 98.8, pulse 86 regular, rest. 18, blood pressure 148/88, pulse oximetry 97% room air. General: He is awake, alert, oriented. He does not appear to be in any acute distress at this time, but he does appear to be down in his spirits. HEENT: Head normocephalic atraumatic, conjunctiva are pink, sclera are nonicteric, buccal mucosa is pink and moist with no lesions in the oropharynx. Hearing is grossly intact to conversation. Respiratory: Clear to auscultation bilaterally with no wheezes, rales, or rhonchi. Cardiovascular: Regular rate and rhythm, with no rubs, gallops, or murmur. He does have 2-3+ pitting edema in the lower extremities up to the midshin. Abdomen: Soft, he does appear to be mildly tender throughout without the abdominal binder on, nondistended yet he still does appear to have a good amount of ascites, no hepatosplenomegaly appreciated. Bowel sounds present. The abdominal binder was replaced after examination. Extremities: 2+ pulses in the radial bilaterally. No evidence of clubbing or cyanosis. Significant lower extremity edema as noted above. MICROBIOLOGY: Blood cultures from 04/11/2017 show no growth after 5 days, these were obtained through a peripheral venous source. Urine culture from 04/11/2017 shows no growth. Peritoneal fluid from 04/15/2017 shows no bacterial growth, however the fungal and mycobacterial culture are still pending. Peritoneal fluid analysis only reveals 47 WBCs, and is otherwise not indicative of spontaneous bacterial peritonitis ASSESSMENT/PLAN: It is likely that his persistent leukocytosis is from steroid use, however his sudden increase on 04/15/2017 is a bit peculiar. In light of the fact that he has been afebrile, and largely without constitutional symptoms, I suspect that this may be a stress reaction from having so much fluid removed via paracentesis. There is no indication of spontaneous bacterial peritonitis at this time. Urine cultures are negative. His blood cultures were negative, however they were obtained through peripheral venous access, therefore I have ordered additional blood cultures to be obtained through his port, if these are negative then I would recommend discontinuation of his antibiotics. My preceptor for this patient encounter was physically present in the building during the encounter and was fully available. As needed, all aspects of the patient interview, examination, medical decision making process, and medical care plan development were reviewed and approved by the preceptor. Preceptor is aware and concurs with the plan as stated in the body of this note and will attest to such by his/her cosignature. Laboratory Data Labs 24H Laboratory Tests 2 04/18/17 05:30: Nucleated Red Blood Cells % (auto) 0.0, Anion Gap 10, Glomerular Filtration Rate > 60.0, Blood Urea Nitrogen 27H, Creatinine 1.30, Sodium Level 139, Potassium Level 3.6, Chloride Level 107, Carbon Dioxide Level 22, Calcium Level 7.9L, Aspartate Amino Transf (AST/SGOT) 32, Alanine Aminotransferase (ALT/SGPT) 12, Alkaline Phosphatase 161H, Total Bilirubin 0.7, Total Protein 4.2L, Albumin 2.3#L, Ammonia 42H, Albumin/Globulin Ratio 1.21 CBC/BMP Laboratory Tests 04/18/17 05:30 Red Blood Count 2.81 L, Mean Corpuscular Volume 92.9, Mean Corpuscular Hemoglobin 30.6, Mean Corpuscular Hemoglobin Concent 33.0, Red Cell Distribution Width 19.6 H, Calcium Level 7.9 L, Aspartate Amino Transf (AST/SGOT ) 32, Alanine Aminotransferase (ALT/SGPT) 12, Alkaline Phosphatase 161 H, Total Bilirubin 0.7, Total Protein 4.2 L, Albumin 2.3 #L Microbiology Microbiology 04/11/17 Blood Culture - Final, Complete NO GROWTH AFTER 5 DAYS 04/11/17 Blood Culture - Final, Complete NO GROWTH AFTER 5 DAYS 04/15/17 Acid Fast Stain, Received Pending 04/15/17 Mycobacterial Culture, Received Pending 04/15/17 Fungal Smear, Received Pending 04/15/17 Fungal Culture, Received Pending 04/15/17 Gram Stain - Final, Complete 04/15/17 Body Fluid Culture - Final, Complete 04/15/17 Anaerobic Culture - Final, Complete 04/11/17 Urine Culture - Final, Complete Allergies Coded Allergies: Fentanyl (Verified Adverse Reaction, Intermediate, [facility], 04/11/17) says it makes him "looney" Home Medications Scheduled (Lonsurf 20-8.19 mg) 1 Tab Tab, 1 TAB PO BID, (Reported) HAS NOT STARTED TAKING YET Gabapentin (Gabapentin) 300 Mg Cap, 300 MG PO TID, (Reported) Megestrol Acetate (Megestrol Acetate) 400 Mg/10 Ml Farideh, 20 ML PO DAILY, ( Reported) Multivitamins *[facility] STOCKED* (Thera M Plus *[facility] STOCKED*) 1 Tab Tab, 1 TAB PO DAILY, (Reported) Oxycodone HCl (Oxycontin) 10 Mg Tab, 10 MG PO BID, (Reported) Pantoprazole Sodium Sesquihydr (Protonix) 40 Mg Tab, 40 MG PO BID, (Reported) Prednisone (Prednisone) 10 Mg Tab, 10 MG PO DAILY, (Reported) Spironolactone (Spironolactone) 50 Mg Tab, 50 MG PO BID, (Reported) Valacyclovir HCl (Valacyclovir HCl) 1 Gm Tab, 1 GM PO DAILY, (Reported) Scheduled PRN Ondansetron HCl (Zofran) 8 Mg Tab, 8 MG PO TID PRN for NAUSEA, (Reported) FREDA CASPER DO Apr 18, 2017 18:36
[2017-04-19] MEDS: LACTULOSE 20 GM/30 ML SYRUP UD PO SCH ×5 (02:29→19:53)
[2017-04-19] MEDS: PIPERACILLIN/TAZOBACTAM SOD 3.375 GM in D5W 50 ML IV SCH ×3 (02:30→18:15)
[2017-04-19 04:00] VITALS: BP 126/71
[2017-04-19] MEDS: SODIUM CHLORIDE 0.9% INJ 10 ML SYR IV PRN ×3 (04:21→20:05)
[2017-04-19 06:14] LABS: MEAN CORPUSCULAR HEMOGLOBIN 30.7 pg (27.0-33.0); MEAN CORPUSCULAR HGB CONC 33.3 g/dl (32.0-36.5); PLATELET COUNT, AUTOMATED 243 10^3/uL (150-450); RED CELL DISTRIBUTION WIDTH 19.4 % (11.5-14.5); WHITE BLOOD COUNT 11.2 10^3/uL (4.0-10.0)
[2017-04-19 06:39] LABS: ALBUMIN 2.3 GM/DL (3.2-5.2); ALBUMIN/GLOBULIN RATIO 0.88 (1.00-1.93); ALKALINE PHOSPHATASE 163 U/L (45-117); ALT/SGPT 10 U/L (12-78); ANION GAP 10 MEQ/L (8-16); AST/SGOT 33 U/L (7-37); BILIRUBIN,TOTAL 0.9 MG/DL (0.2-1.0); BLOOD UREA NITROGEN 21 MG/DL (7-18); CALCIUM LEVEL 8.6 MG/DL (8.5-10.1); CARBON DIOXIDE LEVEL 21 MEQ/L (21-32); CHLORIDE LEVEL 109 MEQ/L (98-107); CREATININE FOR GFR 1.09 MG/DL (0.70-1.30); GLOMERULAR FILTRATION RATE > 60.0 (>56); GLUCOSE, FASTING 97 MG/DL (70-105); POTASSIUM SERUM 3.5 MEQ/L (3.5-5.1); SODIUM LEVEL 140 MEQ/L (136-145); TOTAL PROTEIN 4.9 GM/DL (6.4-8.2)
[2017-04-19 07:30] VITALS: BP 132/79
[2017-04-19] MEDS: MEGESTROL SUSP 400 MG/10 ML UDC PO SCH (09:18)
[2017-04-19] MEDS: ENOXAPARIN 100MG/1ML SYRINGE (J1650) SC SCH ×2 (09:19→20:03)
[2017-04-19] MEDS: GABAPENTIN 100 MG CAP PO SCH ×2 (09:19→20:03)
[2017-04-19] MEDS: rifAXIMin 550 MG TAB (XIFAXAN) PO SCH (09:19)
[2017-04-19] MEDS: predniSONE 5 MG TAB PO SCH (09:19)
[2017-04-19] MEDS: PANTOPRAZOLE 40MG TAB (PROTONIX) PO SCH ×2 (09:19→20:03)
[2017-04-19] MEDS: valACYclovir HCL 500 MG TAB PO SCH (09:19)
[2017-04-19] MEDS: SODIUM CHLORIDE 0.9% INJ 10 ML SYR IV SCH (09:27)
[2017-04-19] MEDS: oxyCODONE 10 MG CR TAB PO SCH ×2 (10:10→21:31)
[2017-04-19 12:45] VITALS: BP 135/81
--- NOTE | 2017-04-19 16:12 | IPNPDOC ---
Text Note Date of Service The patient was seen on 04/19/17. NOTE Subjective: Pt is more awake today. Has chronic abd pain. 8 BM today. Objective: Vitals: (see below) General: No acute distress, laying comfortably in bed. HEENT: Moist mucous membranes. Neck: No JVD or lymphadenopathy Cardiac: RRR, No murmurs Pulm: Clear to auscultation b/l. No wheezing, rhonchi Abd: Mild TTP RLQ. No rebound/guarding/rigidity. Mildly distended. + BS Ext: 2+ Pitting edema BLE. edema or cyanosis Labs (see below) Images: Assessment/Plan 1. Anasarca 2/2 severe protein calorie malnutrition related to colon cancer.- cont albumin infusion. Will give lasix today. Colon ca with likely liver mets per medical records. 2. Upper ext DVT - on lovenox. 3. Metabolic/hepatic encephalopathy - ammonia level improving. Increased BM. D/ c Xifaxan. Cont lactulose 4. Anemia - improving. S/p PRBC. Stable. No bleeding noted. 5. LUISA improving. Appreciate nephro input 6. Severe Protein calorie malnutrition due to advanced cancer and poor oral intake. Dietary consult pending and noting liver mets: continue ensure with meals. 7. Hypokalemia - improved. 8. Leukocytosis - likely 2/2 steroids. No source of infection. 9. Ascities s/p paracentesis 3/2 L on 04/15 - cx pending. 10. Metastatic colon ca - following with oncologist at [place]. s/p chemo, with plan for more cycles for palliative therapy. 11. H/o shingles on valacyclovir. 12. Chronic pain on oxycodone. DVT prophy: On lovenox Prognosis guarded/terminal. VS,Fishbone, I+O VS, Fishbone, I+O Laboratory Tests 04/19/17 05:58 Red Blood Count 3.23 L, Mean Corpuscular Volume 92.0, Mean Corpuscular Hemoglobin 30.7, Mean Corpuscular Hemoglobin Concent 33.3, Red Cell Distribution Width 19.4 H, Calcium Level 8.6, Aspartate Amino Transf (AST/SGOT) 33, Alanine Aminotransferase (ALT/SGPT) 10 L, Alkaline Phosphatase 163 H, Total Bilirubin 0.9, Total Protein 4.9 L, Albumin 2.3 L Vital Signs Date Time Temp Pulse Resp B/P (MAP) Pulse Ox O2 Delivery O2 Flow Rate FiO2 04/19/17 12:45 98.6 94 22 135/81 (99) 96 Room Air 04/18/17 15:28 2.0 CASANDRA EDWARDS MD Apr 19, 2017 16:12
[2017-04-19] MEDS ORDERED: FUROSEMIDE 40 MG/4 ML VIAL (J1940) IV ONE (16:15)
[2017-04-19 16:20] VITALS: BP 117/77
[2017-04-19] MEDS: oxyCODONE 5MG TAB PO PRN (16:46)
--- NOTE | 2017-04-19 18:14 | IPN ---
DATE: 04/19/2017 SUBJECTIVE: The patient is seen this morning at the bedside. He complains of cramping pain abdominal pain and recurrent bowel movements. He has not been able to get out of bed. He feels weak and continues to appear chronically ill but in no acute distress. VITAL SIGNS: Temperature 98.6, pulse 94, respiratory rate 22, blood pressure 135/81, saturating 96% on room air. INTAKE AND OUTPUT: Urine output yesterday was 1000 mL with 10 recorded bowel movements, net negative 600 mL balance. Weight in the bed scale today 86 kg, decreased from prior. PHYSICAL EXAMINATION: The patient is seen at the bedside. His is present. He appears fatigued, chronically ill, older than stated age and deconditioned. Extraocular muscles are intact. The neck is supple. CARDIAC: S1, S2, regular rate, 2+. radial pulse. Breath sounds are diminished at the bases. The patient is comfortable on room air. NEUROLOGIC: Lethargic. Slow to respond, but answers simple questions appropriately and follows commands. GENITOURINARY: Barraza catheter present with urine. LABORATORY DATA: White count 11.2, hemoglobin 9.9, platelets 243. Sodium 140, potassium 3.5, bicarbonate 21, BUN 21, creatinine 1.0, glucose 97. INPATIENT MEDICATIONS: The patient continues on Lovenox 90 mg subcutaneous twice a day, lactulose syrup. Remainder of medications are unchanged from prior. ASSESSMENT AND PLAN: 1. Nonoliguric acute kidney injury (LUISA), resolved. The patient's electrolytes are fairly acceptable and his creatinine has improved. At this point, I feel we can resume Lasix. I do not see a pressing need for IV diuretics given that his weights are overall continuing to downtrend and that the patient has been having significant bowel movements and likely has some diarrhea associated losses of free water. I will put him on Lasix 40 mg by mouth daily. A lot of his peripheral edema is likely due to his hypoalbuminemia and there is a risk of intravascular volume depletion with aggressive diuresis. Given that he is stable from a respiratory point of view at this time, I will put him on oral Lasix as opposed to IV. 2. Anasarca, lower extremity pitting edema, chylous ascites with improvement in intravascular volume. The patient's intravascular volume has improved with the use of albumin. His albumin is now greater than 2. We will address his anasarca and edema with oral Lasix. He is at risk of recurrent acute kidney injury and I have explained the same to his . 3. 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 4. Hepatic encephalopathy, hyperammonemia. The patient has been receiving lactulose. He has had multiple bowel movements. His ammonia levels are acceptable. 5. Anemia, improved status post packed red blood cell transfusion. 6. Upper extremity deep vein thrombosis (DVT). Okay to resume twice daily Lovenox given the improvement in renal function. 7. Stage IV metastatic colon cancer. Overall, the patient has a poor prognosis and terminal prognosis.
[2017-04-19 20:00] VITALS: BP 121/75
[2017-04-20] VITALS: BP 110/75
[2017-04-20] MEDS: oxyCODONE 5MG TAB PO PRN ×2 (01:20→11:38)
[2017-04-20] MEDS: PIPERACILLIN/TAZOBACTAM SOD 3.375 GM in D5W 50 ML IV SCH ×3 (02:03→18:26)
[2017-04-20] MEDS: SODIUM CHLORIDE 0.9% INJ 10 ML SYR IV PRN ×2 (03:24→06:01)
[2017-04-20 04:00] VITALS: BP 105/68
[2017-04-20 06:16] LABS: MEAN CORPUSCULAR HEMOGLOBIN 30.8 pg (27.0-33.0); MEAN CORPUSCULAR HGB CONC 33.7 g/dl (32.0-36.5); MEAN CORPUSCULAR VOLUME 91.4 fl (80.0-96.0); PLATELET COUNT, AUTOMATED 224 10^3/uL (150-450)
[2017-04-20 06:55] LABS: ALBUMIN 2.5 GM/DL (3.2-5.2); ALBUMIN/GLOBULIN RATIO 0.89 (1.00-1.93); ALKALINE PHOSPHATASE 183 U/L (45-117); ALT/SGPT 11 U/L (12-78); ANION GAP 9 MEQ/L (8-16); AST/SGOT 32 U/L (7-37); BILIRUBIN,TOTAL 0.8 MG/DL (0.2-1.0); BLOOD UREA NITROGEN 17 MG/DL (7-18); CALCIUM LEVEL 8.5 MG/DL (8.5-10.1); CARBON DIOXIDE LEVEL 24 MEQ/L (21-32); CHLORIDE LEVEL 105 MEQ/L (98-107); CREATININE FOR GFR 1.11 MG/DL (0.70-1.30); GLOMERULAR FILTRATION RATE > 60.0 (>56); GLUCOSE, FASTING 94 MG/DL (70-105); POTASSIUM SERUM 3.4 MEQ/L (3.5-5.1); SODIUM LEVEL 138 MEQ/L (136-145); TOTAL PROTEIN 5.3 GM/DL (6.4-8.2)
[2017-04-20 08:00] VITALS: BP 112/71
[2017-04-20] MEDS ORDERED: POTASSIUM CHLORIDE 10 MEQ SR TABLET PO ONE (08:00)
[2017-04-20] MEDS ORDERED: FUROSEMIDE 40 MG TAB PO SCH (09:00)
[2017-04-20] MEDS: PANTOPRAZOLE 40MG TAB (PROTONIX) PO SCH ×2 (09:29→20:02)
[2017-04-20] MEDS: valACYclovir HCL 500 MG TAB PO SCH (09:29)
[2017-04-20] MEDS: GABAPENTIN 100 MG CAP PO SCH ×2 (09:29→20:02)
[2017-04-20] MEDS: oxyCODONE 10 MG CR TAB PO SCH ×2 (09:30→20:04)
[2017-04-20] MEDS: predniSONE 5 MG TAB PO SCH (09:30)
[2017-04-20] MEDS: LACTULOSE 20 GM/30 ML SYRUP UD PO SCH ×2 (09:31→18:26)
[2017-04-20] MEDS: ENOXAPARIN 100MG/1ML SYRINGE (J1650) SC SCH (09:31)
[2017-04-20] MEDS: MEGESTROL SUSP 400 MG/10 ML UDC PO SCH (09:31)
[2017-04-20] MEDS: SODIUM CHLORIDE 0.9% INJ 10 ML SYR IV SCH (09:32)
--- NOTE | 2017-04-20 11:31 | IPNPDOC ---
Text Note Date of Service The patient was seen on 04/20/17. NOTE Subjective: Pt states he is felling well, and diarrhea has subsided. No N/v. Appetite improving. Objective: Vitals: (see below) General: No acute distress, laying comfortably in bed. HEENT: Moist mucous membranes. Neck: No JVD or lymphadenopathy Cardiac: RRR, No murmurs Pulm: Clear to auscultation b/l. No wheezing, rhonchi Abd: Mild TTP RLQ. No rebound/guarding/rigidity. Mildly distended. + BS Ext: 2+ Pitting edema BLE. edema or cyanosis Labs (see below) Images: Assessment/Plan 1. Anasarca 2/2 severe protein calorie malnutrition related to colon cancer.- s/ p albumin infusion. On Lasix. Colon ca with likely liver mets per medical records. 2. Upper ext DVT - on lovenox. 3. Metabolic/hepatic encephalopathy - ammonia level improving. Increased BM. D/ c Xifaxan. Cont lactulose 4. Anemia - improving. S/p PRBC. Stable. No bleeding noted. 5. LUISA improving. Appreciate nephro input 6. Severe Protein calorie malnutrition due to advanced cancer and poor oral intake. Dietary consult pending and noting liver mets: continue ensure with meals. 7. Hypokalemia - improved. 8. Leukocytosis - likely 2/2 steroids. No source of infection. 9. Ascities s/p paracentesis 3/2 L on 04/15 - cx pending. 10. Metastatic colon ca - following with oncologist at [place]. s/p chemo, with plan for more cycles for palliative therapy. 11. H/o shingles on valacyclovir. 12. Chronic pain on oxycodone. DVT prophy: On lovenox Prognosis guarded/terminal. VS,Fishbone, I+O VS, Fishbone, I+O Laboratory Tests 04/20/17 06:02 Red Blood Count 3.38 L, Mean Corpuscular Volume 91.4, Mean Corpuscular Hemoglobin 30.8, Mean Corpuscular Hemoglobin Concent 33.7, Red Cell Distribution Width 19.0 H, Calcium Level 8.5, Aspartate Amino Transf (AST/SGOT) 32, Alanine Aminotransferase (ALT/SGPT) 11 L, Alkaline Phosphatase 183 H, Total Bilirubin 0.8, Total Protein 5.3 L, Albumin 2.5 L Vital Signs Date Time Temp Pulse Resp B/P (MAP) Pulse Ox O2 Delivery O2 Flow Rate FiO2 04/20/17 09:30 18 Room Air 04/20/17 08:00 98.1 94 112/71 (85) 95 04/18/17 15:28 2.0 I&O- Last 24 Hours up to 6 AM 04/21/17 06:00 Intake Total 360 ml Balance 360 ml CASANDRA EDWARDS MD Apr 20, 2017 11:31
[2017-04-20 12:00] VITALS: BP 117/74
[2017-04-20 15:46] VITALS: BP 117/76
--- NOTE | 2017-04-20 17:22 | IPN ---
DATE: 04/20/2017 SUBJECTIVE: The patient is seen this morning at the bedside. His and daughter are present. He is currently being positioned to sit up in bed with assistance of nursing staff. He is noted to be in pain and tearful with movements and appears very debilitated and deconditioned. Was able to sit up for about 1 minute and then was repositioned to lie back down. REVIEW OF SYSTEMS: Limited, but the patient denies fevers, chills, vomiting. He notes very frequent bowel movements, 15 bowel movements recorded yesterday. His appetite is reported to be improving. VITAL SIGNS: Temperature 98.9, pulse 96, respiratory rate 26, blood pressure 117/74, saturating 95-95% on room air. Intake and output: Urine output yesterday was 3475 to Barraza catheter. There were 15 recorded bowel movements. Weight in the bed scale today is 81.9 kg, which is significantly lower than prior. PHYSICAL EXAMINATION: The patient is seen being repositioned in bed by the nursing staff, so that he can sit up. He is very frail, very deconditioned and debilitated. Requires significant assistance for simple movements. Even requires nursing help to straighten out his legs. He appears much older than stated age and appears chronically ill. Head and neck: The extraocular muscles are intact. His tongue is moist. His neck is supple. CARDIAC: S1, S2, mild tachycardia after moving in bed. Regular rate. Radial pulse 2+. There is decreased peripheral edema. Breath sounds are diminished at the bases, but the patient is comfortable on room air. ABDOMEN: Soft and ascitic. There is an abdominal binder in place. There are bowel sounds that are presents and hyperactive. NEUROLOGIC: The patient is lethargic and slow to respond, but he answers simple questions appropriately and follows commands. GENITOURINARY: There is a Barraza catheter present with urine. EXTREMITIES: The lower extremities have less edema as compared to prior. There is a Perm-A-Cath present in the right chest wall. LABORATORY DATA: White count 12, hemoglobin 10.4, platelets 224. Sodium 138, potassium 3.4, bicarbonate 24, BUN 17, creatinine 1.1, corrected calcium 9.7. Albumin 2.5. INPATIENT MEDICATIONS: I have reduced the patient's diuretic to Lasix 20 mg by mouth daily. The primary team has adjusted the lactulose dose. He received a one-time dose of potassium. Remainder of medications is unchanged from prior. PROBLEMS: 1. Nonoliguric acute kidney injury secondary to intravascular volume contraction. The patient's renal failure has resolved. He received a dose of intravenous (IV) Lasix yesterday and put out 3500 mL of urine in a brisk manner. Given that he is also having about 10-15 bowel movements a day from lactulose, I would recommend very low dose oral diuretic for him. His peripheral edema has also improved from prior, and his serum albumin has also improved. We will continue the patient on Lasix 20 mg by mouth daily for conservative correction of his volume status. I would not aggressively diurese the patient for lower extremity edema, as there would be a risk of recurrent acute kidney injury (LUISA), and he is stable from a respiratory point of view at this time. 2. Anasarca, likely secondary to hypoalbuminemia and liver dysfunction. Continue with Lasix 20 mg by mouth daily. He is responding well to diuretics. 3. 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 4. Hepatic encephalopathy, hyperammonemia. The patient has been receiving lactulose as rifaximin was discontinued. He has had anywhere between 10-15 bowel movements a day for the last 2 days. His ammonia levels are in the 30s. 5. Upper extremity deep vein thrombosis (DVT). The patient continues on Lovenox twice a day, weight-based dosing. 6. Anemia, improved status post packed red blood cells transfusion. 7. Stable IV metastatic colon cancer. Overall the patient has a poor and terminal prognosis and is on palliative therapy. DISPOSITION: The patient's volume status has improved from prior, and he is on an oral diuretic. His electrolytes are fairly acceptable, and his creatinine is at baseline. Nephrology is signing off the case at this time. Please re-consult for any issues. Thank you for involving us in the care of Mr. Hernandez.
[2017-04-20 21:04] VITALS: BP 103/68
[2017-04-21] MEDS: LACTULOSE 20 GM/30 ML SYRUP UD PO SCH ×4 (00:39→18:43)
[2017-04-21] MEDS: oxyCODONE 5MG TAB PO PRN ×2 (00:40→12:03)
[2017-04-21 00:42] VITALS: BP 110/77
[2017-04-21 03:43] VITALS: BP 119/78
[2017-04-21] MEDS: PIPERACILLIN/TAZOBACTAM SOD 3.375 GM in D5W 50 ML IV SCH ×3 (03:51→18:43)
[2017-04-21 07:24] LABS: MEAN CORPUSCULAR HEMOGLOBIN 30.6 pg (27.0-33.0); MEAN CORPUSCULAR HGB CONC 33.3 g/dl (32.0-36.5); MEAN CORPUSCULAR VOLUME 91.9 fl (80.0-96.0); PLATELET COUNT, AUTOMATED 246 10^3/uL (150-450); RED CELL DISTRIBUTION WIDTH 19.2 % (11.5-14.5); WHITE BLOOD COUNT 13.3 10^3/uL (4.0-10.0)
[2017-04-21 07:42] LABS: ALBUMIN 2.3 GM/DL (3.2-5.2); ALBUMIN/GLOBULIN RATIO 1.15 (1.00-1.93); ALKALINE PHOSPHATASE 234 U/L (45-117); ALT/SGPT 15 U/L (12-78); ANION GAP 9 MEQ/L (8-16); AST/SGOT 46 U/L (7-37); BILIRUBIN,TOTAL 0.6 MG/DL (0.2-1.0); BLOOD UREA NITROGEN 19 MG/DL (7-18); CALCIUM LEVEL 8.3 MG/DL (8.5-10.1); CARBON DIOXIDE LEVEL 25 MEQ/L (21-32); CHLORIDE LEVEL 107 MEQ/L (98-107); CREATININE FOR GFR 0.92 MG/DL (0.70-1.30); GLOMERULAR FILTRATION RATE > 60.0 (>56); GLUCOSE, FASTING 117 MG/DL (70-105); POTASSIUM SERUM 3.9 MEQ/L (3.5-5.1); SODIUM LEVEL 141 MEQ/L (136-145); TOTAL PROTEIN 4.3 GM/DL (6.4-8.2)
[2017-04-21 08:00] VITALS: BP 119/81
[2017-04-21] MEDS: MEGESTROL SUSP 400 MG/10 ML UDC PO SCH (09:22)
[2017-04-21] MEDS: GABAPENTIN 100 MG CAP PO SCH ×2 (09:23→20:12)
[2017-04-21] MEDS: rifAXIMin 550 MG TAB (XIFAXAN) PO SCH ×2 (09:23→20:12)
[2017-04-21] MEDS: predniSONE 5 MG TAB PO SCH (09:23)
[2017-04-21] MEDS: oxyCODONE 10 MG CR TAB PO SCH ×2 (09:23→20:12)
[2017-04-21] MEDS: SODIUM CHLORIDE 0.9% INJ 10 ML SYR IV SCH (09:24)
[2017-04-21] MEDS: FUROSEMIDE 20 MG TAB PO SCH (09:24)
[2017-04-21] MEDS: PANTOPRAZOLE 40MG TAB (PROTONIX) PO SCH ×2 (09:24→20:12)
[2017-04-21] MEDS: valACYclovir HCL 500 MG TAB PO SCH (09:38)
[2017-04-21 11:29] VITALS: BP 127/84
[2017-04-21 16:00] VITALS: BP 110/76
--- NOTE | 2017-04-21 16:30 | IPNPDOC ---
Text Note Date of Service The patient was seen on 04/21/17. VS,Fishbone, I+O VS, Fishbone, I+O Laboratory Tests 04/21/17 06:57 Red Blood Count 3.46 L, Mean Corpuscular Volume 91.9, Mean Corpuscular Hemoglobin 30.6, Mean Corpuscular Hemoglobin Concent 33.3, Red Cell Distribution Width 19.2 H, Calcium Level 8.3 L, Aspartate Amino Transf (AST/SGOT ) 46 H, Alanine Aminotransferase (ALT/SGPT) 15, Alkaline Phosphatase 234 H, Total Bilirubin 0.6, Total Protein 4.3 L, Albumin 2.3 L Vital Signs Date Time Temp Pulse Resp B/P (MAP) Pulse Ox O2 Delivery O2 Flow Rate FiO2 04/21/17 12:33 18 Room Air 04/21/17 11:29 98.2 105 127/84 (98) 96 04/18/17 15:28 2.0 I&O- Last 24 Hours up to 6 AM 04/22/17 06:00 Intake Total 100 ml Balance 100 ml CASANDRA EDWARDS MD Apr 21, 2017 16:30
--- NOTE | 2017-04-21 16:36 | IPNPDOC ---
Text Note Date of Service The patient was seen on 04/21/17. NOTE Subjective: Pt states he is felling well. No N/v. Appetite improving. Not progressing well with PT. Objective: Vitals: (see below) General: No acute distress, laying comfortably in bed. HEENT: Moist mucous membranes. Neck: No JVD or lymphadenopathy Cardiac: RRR, No murmurs Pulm: Clear to auscultation b/l. No wheezing, rhonchi Abd: Mild TTP RLQ. No rebound/guarding/rigidity. Mildly distended. + BS Ext: 2+ Pitting edema BLE. edema or cyanosis Labs (see below) Images: Assessment/Plan 1. Anasarca 2/2 severe protein calorie malnutrition related to colon cancer.- s/ p albumin infusion. On Lasix. Colon ca with likely liver mets per medical records. 2. Upper ext Basilic vein thrombosis - was on lovenox. Spoke with Dr. Deshpande, who recommends anticoagulation for 3 months, and he will be seeing the patient in the office.Will start eliquis. 3. Metabolic/hepatic encephalopathy - ammonia level improving. Increased BM. D/ c Xifaxan. Cont lactulose 4. Anemia - improving. S/p PRBC. Stable. No bleeding noted. 5. LUISA improving. Appreciate nephro input 6. Severe Protein calorie malnutrition due to advanced cancer and poor oral intake. Dietary consult pending and noting liver mets: continue ensure with meals. 7. Hypokalemia - improved. 8. Leukocytosis - likely 2/2 steroids. No source of infection. 9. Ascities s/p paracentesis 3/2 L on 04/15 - cx pending. 10. Metastatic colon ca - following with oncologist at [place]. s/p chemo, with plan for more cycles for palliative therapy. 11. H/o shingles on valacyclovir. 12. Chronic pain on oxycodone. DVT prophy: On lovenox Prognosis guarded/terminal. VS,Fishbone, I+O VS, Fishbone, I+O Laboratory Tests 04/21/17 06:57 Red Blood Count 3.46 L, Mean Corpuscular Volume 91.9, Mean Corpuscular Hemoglobin 30.6, Mean Corpuscular Hemoglobin Concent 33.3, Red Cell Distribution Width 19.2 H, Calcium Level 8.3 L, Aspartate Amino Transf (AST/SGOT ) 46 H, Alanine Aminotransferase (ALT/SGPT) 15, Alkaline Phosphatase 234 H, Total Bilirubin 0.6, Total Protein 4.3 L, Albumin 2.3 L Vital Signs Date Time Temp Pulse Resp B/P (MAP) Pulse Ox O2 Delivery O2 Flow Rate FiO2 04/21/17 11:29 98.2 105 20 127/84 (98) 96 Room Air 04/18/17 15:28 2.0 I&O- Last 24 Hours up to 6 AM 04/22/17 06:00 Intake Total 50 ml Balance 50 ml CASANDRA EDWARDS MD Apr 21, 2017 12:59
[2017-04-21 20:10] VITALS: BP 120/84
[2017-04-21] MEDS: APIXABAN 5 MG TAB (ELIQUIS) PO SCH (20:12)
[2017-04-22] VITALS (7 sets, daily range): BP systolic 109–131; BP diastolic 75–83
[2017-04-22] MEDS: LACTULOSE 20 GM/30 ML SYRUP UD PO SCH ×4 (00:03→16:18)
[2017-04-22] MEDS: PIPERACILLIN/TAZOBACTAM SOD 3.375 GM in D5W 50 ML IV SCH (03:50)
[2017-04-22] MEDS: oxyCODONE 5MG TAB PO PRN ×3 (03:51→23:39)
[2017-04-22 06:01] LABS: PERCENT SATURATION 20.7 % (19.7-50.0)
[2017-04-22 06:12] LABS: ERYTHROCYTE SEDIMENTATION RATE 77 mm/hr (0-20)
[2017-04-22 08:04] LABS: ALBUMIN 2.1 GM/DL (3.2-5.2); ALBUMIN/GLOBULIN RATIO 0.91 (1.00-1.93); ALKALINE PHOSPHATASE 252 U/L (45-117); ALT/SGPT 23 U/L (12-78); ANION GAP 12 MEQ/L (8-16); AST/SGOT 53 U/L (7-37); BILIRUBIN,TOTAL 0.6 MG/DL (0.2-1.0); BLOOD UREA NITROGEN 17 MG/DL (7-18); CALCIUM LEVEL 8.2 MG/DL (8.5-10.1); CARBON DIOXIDE LEVEL 25 MEQ/L (21-32); CHLORIDE LEVEL 104 MEQ/L (98-107); CREATININE FOR GFR 0.99 MG/DL (0.70-1.30); GLOMERULAR FILTRATION RATE > 60.0 (>56); GLUCOSE, FASTING 114 MG/DL (70-105); POTASSIUM SERUM 3.7 MEQ/L (3.5-5.1); SODIUM LEVEL 141 MEQ/L (136-145); TOTAL PROTEIN 4.4 GM/DL (6.4-8.2)
[2017-04-22] MEDS: oxyCODONE 10 MG CR TAB PO SCH ×2 (08:46→21:33)
[2017-04-22] MEDS: FUROSEMIDE 20 MG TAB PO SCH (08:46)
[2017-04-22] MEDS: GABAPENTIN 100 MG CAP PO SCH ×2 (08:46→21:32)
[2017-04-22] MEDS: rifAXIMin 550 MG TAB (XIFAXAN) PO SCH ×2 (08:46→21:32)
[2017-04-22] MEDS: predniSONE 5 MG TAB PO SCH (08:46)
[2017-04-22] MEDS: FERROUS SULFATE 325MG TAB PO SCH ×3 (08:46→21:32)
[2017-04-22] MEDS: PANTOPRAZOLE 40MG TAB (PROTONIX) PO SCH ×2 (08:46→21:32)
[2017-04-22] MEDS: valACYclovir HCL 500 MG TAB PO SCH (08:46)
[2017-04-22] MEDS: APIXABAN 5 MG TAB (ELIQUIS) PO SCH ×2 (08:47→21:32)
[2017-04-22] MEDS: MEGESTROL SUSP 400 MG/10 ML UDC PO SCH (08:47)
[2017-04-22] MEDS: SODIUM CHLORIDE 0.9% INJ 10 ML SYR IV SCH (08:47)
[2017-04-22 08:49] LABS: MEAN CORPUSCULAR HEMOGLOBIN 30.7 pg (27.0-33.0); MEAN CORPUSCULAR HGB CONC 33.3 g/dl (32.0-36.5); MEAN CORPUSCULAR VOLUME 92.2 fl (80.0-96.0); PLATELET COUNT, AUTOMATED 265 10^3/uL (150-450); RED CELL DISTRIBUTION WIDTH 19.1 % (11.5-14.5); WHITE BLOOD COUNT 13.9 10^3/uL (4.0-10.0)
[2017-04-22 09:20] LABS: FOLATE 21.8 NG/ML (>5.4)
--- NOTE | 2017-04-22 13:08 | IPNPDOC ---
Text Note Date of Service The patient was seen on 04/22/17. NOTE Subjective: No N/v. Appetite improving. Attempting to participate with PT. Objective: Vitals: (see below) General: No acute distress, laying comfortably in bed. HEENT: Moist mucous membranes. Neck: No JVD or lymphadenopathy Cardiac: RRR, No murmurs Pulm: Clear to auscultation b/l. No wheezing, rhonchi Abd: Mild TTP RLQ. No rebound/guarding/rigidity. Mildly distended. + BS Ext:1+ Pitting edema BLE. edema or cyanosis Labs (see below) Images: Assessment/Plan 1. Anasarca 2/2 severe protein calorie malnutrition related to colon cancer.- s/ p albumin infusion. On Lasix. Colon ca with likely liver mets per medical records. LE edema improving. 2. Upper ext Basilic vein thrombosis - was on lovenox. Spoke with Dr. Deshpande, who recommends anticoagulation for 3 months, and he will be seeing the patient in the office. Cont eliquis. 3. Metabolic/hepatic encephalopathy -. restarted on Xifaxan. Cont lactulose 4. Anemia - improving. S/p PRBC. Stable. No bleeding noted. 5. LUISA improving. Appreciate nephro input 6. Severe Protein calorie malnutrition due to advanced cancer and poor oral intake. Dietary consult pending and noting liver mets: continue ensure with meals. 7. Hypokalemia - improved. 8. Leukocytosis - likely 2/2 steroids. No source of infection. 9. Ascities s/p paracentesis 3/2 L on 04/15 - cx negative 10. Metastatic colon ca - following with oncologist at [place]. s/p chemo, with plan for more cycles for palliative therapy. 11. H/o shingles on valacyclovir. 12. Chronic pain on oxycodone. DVT prophy: On lovenox Prognosis guarded/terminal. VS,Fishbone, I+O VS, Fishbone, I+O Laboratory Tests 04/22/17 05:17 Red Blood Count 3.45 L, Mean Corpuscular Volume 92.2, Mean Corpuscular Hemoglobin 30.7, Mean Corpuscular Hemoglobin Concent 33.3, Red Cell Distribution Width 19.1 H, Calcium Level 8.2 L, Aspartate Amino Transf (AST/SGOT ) 53 H, Alanine Aminotransferase (ALT/SGPT) 23, Alkaline Phosphatase 252 H, Total Bilirubin 0.6, Total Protein 4.4 L, Albumin 2.1 L Vital Signs Date Time Temp Pulse Resp B/P (MAP) Pulse Ox O2 Delivery O2 Flow Rate FiO2 04/22/17 12:12 20 04/22/17 08:56 Room Air 04/22/17 08:00 98.6 99 115/77 (90) 96 04/18/17 15:28 2.0 CASANDRA EDWARDS MD Apr 22, 2017 13:08
--- NOTE | 2017-04-22 16:11 | IPN ---
DATE: 04/22/2017 Matty seems to be doing much better. He has had no new complaints except for his diffuse abdominal pain. He is eating slightly better. His edema has markedly improved. White count is 13.9, hemoglobin 10.6, hematocrit 31.8, platelets 265. ESR 77. Sodium 141, potassium 3.7, chloride 104, bicarbonate 25, BUN 17, creatinine 0.9, glucose 114, calcium 8.2. Bilirubin 0.6, AST 53, ALT 23, alkaline phosphatase 252, CRP 5.98, albumin 2.1. Blood cultures done from the port on April 18: Two sets were negative, 30 minutes apart. Blood cultures done on April 11 were negative. Peritoneal fluid from April 15 was negative. PHYSICAL EXAMINATION: Temperature is 98.6, pulse 99, respirations 17, blood pressure 115/77, oxygen saturation 96% on room air. HEART: Normal S1, S2, tachycardiac. LUNGS: Clear. No wheezes, rales, or rhonchi. Diminished at the bases. ABDOMEN: Diffusely tender with ascites. No guarding. EXTREMITIES: Ankle edema +2 with diffuse muscle weakness. Difficulty with hip flexion. IMPRESSION: 1. Leukocytosis with no evidence of infection. There is no peritonitis. Cell count on peritoneal fluid was only 47 with 31% neutrophils, and culture was negative. 2. Metastatic colon cancer with infiltration of the mesentary. Massive fluid collection with mesenteric periaortic and retroperitoneal adenopathy, most likely the reason for his leukocytosis and not infectious process. PLAN: Discontinue intravenous (IV) Zosyn, and infectious disease is signing off.
[2017-04-23 04:00] VITALS: BP 120/79
[2017-04-23 05:37] LABS: MEAN CORPUSCULAR HEMOGLOBIN 30.5 pg (27.0-33.0); MEAN CORPUSCULAR VOLUME 92.5 fl (80.0-96.0); PLATELET COUNT, AUTOMATED 254 10^3/uL (150-450); RED CELL DISTRIBUTION WIDTH 18.6 % (11.5-14.5); WHITE BLOOD COUNT 15.5 10^3/uL (4.0-10.0)
[2017-04-23 05:40] LABS: ADD MANUAL DIFFER YES; DIFF SLIDE NUMBER 51; POS COUNT POS FLAG; POSITIVE MORPH POS FLAG; WBC SCAT POS FLAG
[2017-04-23] MEDS: LACTULOSE 20 GM/30 ML SYRUP UD PO SCH ×4 (06:00→21:18)
[2017-04-23 06:05] LABS: ERYTHROCYTE SEDIMENTATION RATE 75 mm/hr (0-20)
[2017-04-23 06:12] LABS: ALBUMIN 2.1 GM/DL (3.2-5.2); ALBUMIN/GLOBULIN RATIO 0.88 (1.00-1.93); ALKALINE PHOSPHATASE 314 U/L (45-117); ALT/SGPT 30 U/L (12-78); ANION GAP 10 MEQ/L (8-16); AST/SGOT 67 U/L (7-37); BILIRUBIN,TOTAL 0.7 MG/DL (0.2-1.0); BLOOD UREA NITROGEN 20 MG/DL (7-18); CALCIUM LEVEL 8.3 MG/DL (8.5-10.1); CARBON DIOXIDE LEVEL 24 MEQ/L (21-32); CHLORIDE LEVEL 105 MEQ/L (98-107); CREATININE FOR GFR 0.82 MG/DL (0.70-1.30); GLOMERULAR FILTRATION RATE > 60.0 (>56); GLUCOSE, FASTING 86 MG/DL (70-105); MAGNESIUM LEVEL 1.1 MG/DL (1.8-2.4); PHOSPHORUS LEVEL 2.5 MG/DL (2.5-4.9); POTASSIUM SERUM 3.6 MEQ/L (3.5-5.1); SODIUM LEVEL 139 MEQ/L (136-145); TOTAL PROTEIN 4.5 GM/DL (6.4-8.2)
[2017-04-23 07:07] LABS: EOSINOPHILS 1 % (0-5)
[2017-04-23 07:08] LABS: ANISOCYTOSIS 2+
[2017-04-23 07:09] LABS: SCHISTOCYTES 1+
[2017-04-23 07:47] VITALS: BP 113/81
[2017-04-23] MEDS: SODIUM CHLORIDE 0.9% INJ 10 ML SYR IV SCH (08:55)
[2017-04-23] MEDS: GABAPENTIN 100 MG CAP PO SCH ×2 (08:56→20:03)
[2017-04-23] MEDS: FUROSEMIDE 20 MG TAB PO SCH (08:56)
[2017-04-23] MEDS: FERROUS SULFATE 325MG TAB PO SCH ×3 (08:56→20:03)
[2017-04-23] MEDS: predniSONE 5 MG TAB PO SCH (08:56)
[2017-04-23] MEDS: rifAXIMin 550 MG TAB (XIFAXAN) PO SCH ×2 (08:56→20:03)
[2017-04-23] MEDS: PANTOPRAZOLE 40MG TAB (PROTONIX) PO SCH ×2 (08:56→20:03)
[2017-04-23] MEDS: valACYclovir HCL 500 MG TAB PO SCH (08:56)
[2017-04-23] MEDS: APIXABAN 5 MG TAB (ELIQUIS) PO SCH ×2 (08:56→20:03)
[2017-04-23] MEDS: oxyCODONE 10 MG CR TAB PO SCH ×2 (08:57→20:03)
[2017-04-23] MEDS: MEGESTROL SUSP 400 MG/10 ML UDC PO SCH (08:57)
[2017-04-23] MEDS: MAG SULF 1GM/100ML (MAG RUN) 1 GM in APPROPRIATE DILUENT 1 EA IV SCH ×2 (09:10→10:16)
[2017-04-23] MEDS ORDERED: MAG SULF 1GM/100ML (MAG RUN) 1 GM in APPROPRIATE DILUENT 1 EA IV ONE (09:45)
[2017-04-23] MEDS ORDERED: POTASSIUM CHLORIDE 10 MEQ SR TABLET PO ONE (09:45)
--- NOTE | 2017-04-23 10:25 | IPNPDOC ---
Text Note Date of Service The patient was seen on 04/23/17. NOTE Subjective: Had heart colored urine yesterday, which has cleared. No clots. Appetite improving. Had 5 BM yesterday. Objective: Vitals: (see below) General: No acute distress, laying comfortably in bed. HEENT: Moist mucous membranes. Neck: No JVD or lymphadenopathy Cardiac: RRR, No murmurs Pulm: Clear to auscultation b/l. No wheezing, rhonchi Abd: No abd pain. No rebound/guarding/rigidity. Mildly distended. + BS Ext:1+ Pitting edema BLE. edema or cyanosis Labs (see below) Images: Assessment/Plan 1. Anasarca 2/2 severe protein calorie malnutrition related to colon cancer.- s/ p albumin infusion. On Lasix. Colon ca with likely liver mets per medical records. LE edema improving. 2. Upper ext Basilic vein thrombosis - was on lovenox. Spoke with Dr. Deshpande, who recommends anticoagulation for 3 months, and he will be seeing the patient in the office. Cont eliquis. 3. Metabolic/hepatic encephalopathy -. restarted on Xifaxan. Cont lactulose- change to q8h 4. Anemia - improving. S/p PRBC. Stable. No bleeding noted. 5. LUISA resolved.. Appreciate nephro input 6. Severe Protein calorie malnutrition due to advanced cancer and poor oral intake. Dietary consult pending and noting liver mets: continue ensure with meals. 7. Hypokalemia - improved. 8. Leukocytosis - likely 2/2 steroids. No source of infection. 9. Ascities s/p paracentesis 3/2 L on 04/15 - cx negative 10. Metastatic colon ca - following with oncologist at [place]. s/p chemo, with plan for more cycles for palliative therapy. 11. H/o shingles on valacyclovir. 12. Chronic pain on oxycodone. 13. Hematuria - resolved. D/c liu. Cont to monitor. Hb stable. DVT prophy: On eliquis Prognosis guarded/terminal. VS,Fishbone, I+O VS, Fishbone, I+O Laboratory Tests 04/23/17 05:16 Red Blood Count 3.47 L, Mean Corpuscular Volume 92.5, Mean Corpuscular Hemoglobin 30.5, Mean Corpuscular Hemoglobin Concent 33.0, Red Cell Distribution Width 18.6 H, Calcium Level 8.3 L, Phosphorus Level 2.5, Aspartate Amino Transf (AST/SGOT) 67 H, Alanine Aminotransferase (ALT/SGPT) 30, Alkaline Phosphatase 314 H, Total Bilirubin 0.7, Total Protein 4.5 L, Albumin 2.1 L Vital Signs Date Time Temp Pulse Resp B/P (MAP) Pulse Ox O2 Delivery O2 Flow Rate FiO2 04/23/17 08:57 18 Room Air 04/23/17 07:47 97.6 110 113/81 (92) 97 04/18/17 15:28 2.0 I&O- Last 24 Hours up to 6 AM 04/24/17 06:00 Intake Total 200 ml Output Total 0 ml Balance 200 ml CASANDRA EDWARDS MD Apr 23, 2017 10:25
[2017-04-23 12:00] VITALS: BP 116/86
[2017-04-23] MEDS: SIMETHICONE 80 MG CHEW TAB PO SCH ×2 (12:01→16:59)
[2017-04-23 15:00] VITALS: BP 119/94
[2017-04-23] MEDS: oxyCODONE 5MG TAB PO PRN (17:00)
[2017-04-23 18:30] VITALS: BP 119/82
[2017-04-23 22:00] VITALS: BP 113/78
[2017-04-24] MEDS: SIMETHICONE 80 MG CHEW TAB PO SCH ×4 (00:02→17:53)
[2017-04-24] MEDS: oxyCODONE 5MG TAB PO PRN ×2 (00:03→15:48)
[2017-04-24 06:00] VITALS: BP 119/80
[2017-04-24] MEDS: LACTULOSE 20 GM/30 ML SYRUP UD PO SCH ×3 (06:03→17:53)
[2017-04-24 06:25] LABS: MEAN CORPUSCULAR HEMOGLOBIN 30.5 pg (27.0-33.0); MEAN CORPUSCULAR HGB CONC 33.1 g/dl (32.0-36.5); PLATELET COUNT, AUTOMATED 286 10^3/uL (150-450); RED CELL DISTRIBUTION WIDTH 18.5 % (11.5-14.5)
[2017-04-24 06:27] LABS: POSITIVE MORPH POS FLAG
[2017-04-24 06:28] LABS: ADD MANUAL DIFFER YES; DIFF SLIDE NUMBER 38; POS COUNT POS FLAG
[2017-04-24 06:49] LABS: ALBUMIN 2.2 GM/DL (3.2-5.2); ALBUMIN/GLOBULIN RATIO 0.65 (1.00-1.93); ALKALINE PHOSPHATASE 363 U/L (45-117); ALT/SGPT 40 U/L (12-78); ANION GAP 9 MEQ/L (8-16); AST/SGOT 81 U/L (7-37); BILIRUBIN,TOTAL 0.7 MG/DL (0.2-1.0); BLOOD UREA NITROGEN 20 MG/DL (7-18); CALCIUM LEVEL 8.8 MG/DL (8.5-10.1); CARBON DIOXIDE LEVEL 25 MEQ/L (21-32); CHLORIDE LEVEL 106 MEQ/L (98-107); CREATININE FOR GFR 1.02 MG/DL (0.70-1.30); GLOMERULAR FILTRATION RATE > 60.0 (>56); GLUCOSE, FASTING 95 MG/DL (70-105); MAGNESIUM LEVEL 1.7 MG/DL (1.8-2.4); POTASSIUM SERUM 4.1 MEQ/L (3.5-5.1); SODIUM LEVEL 140 MEQ/L (136-145)
[2017-04-24 07:21] LABS: TOTAL PROTEIN 5.6 GM/DL (6.4-8.2)
[2017-04-24 07:23] LABS: ERYTHROCYTE SEDIMENTATION RATE 83 mm/hr (0-20)
[2017-04-24 07:59] LABS: ANISOCYTOSIS 2+; BANDS 2 % (< 11); POIKILOCYTOSIS 1+
[2017-04-24] MEDS: FERROUS SULFATE 325MG TAB PO SCH (09:00)
[2017-04-24] MEDS: PANTOPRAZOLE 40MG TAB (PROTONIX) PO SCH ×2 (09:49→20:20)
[2017-04-24] MEDS: valACYclovir HCL 500 MG TAB PO SCH (09:50)
[2017-04-24] MEDS: rifAXIMin 550 MG TAB (XIFAXAN) PO SCH ×2 (09:50→20:20)
[2017-04-24] MEDS: GABAPENTIN 100 MG CAP PO SCH ×2 (09:50→20:20)
[2017-04-24] MEDS: FUROSEMIDE 20 MG TAB PO SCH (09:50)
[2017-04-24] MEDS: predniSONE 5 MG TAB PO SCH (09:50)
[2017-04-24] MEDS: APIXABAN 5 MG TAB (ELIQUIS) PO SCH ×2 (09:50→20:19)
[2017-04-24] MEDS: oxyCODONE 10 MG CR TAB PO SCH ×2 (09:53→20:20)
[2017-04-24] MEDS: SODIUM CHLORIDE 0.9% INJ 10 ML SYR IV SCH (09:54)
[2017-04-24] MEDS: MEGESTROL SUSP 400 MG/10 ML UDC PO SCH (09:55)
[2017-04-24] MEDS ORDERED: ISOVUE-370 76% 100ML VIAL (Q9967) As Ordered ONE (10:30)
[2017-04-24] MEDS ORDERED: GASTROGRAFIN SOLUTION 30ML PO ONE (10:45)
--- NOTE | 2017-04-24 10:58 | IPNPDOC ---
Text Note Date of Service The patient was seen on 04/24/17. NOTE Subjective: Appetite improving. Chronic abd pain. Objective: Vitals: (see below) General: No acute distress, laying comfortably in bed. HEENT: Moist mucous membranes. Neck: No JVD or lymphadenopathy Cardiac: RRR, No murmurs Pulm: Clear to auscultation b/l. No wheezing, rhonchi Abd: No abd pain. No rebound/guarding/rigidity. Mildly distended. + BS Ext:1+ Pitting edema BLE. edema or cyanosis Labs (see below) Images: Assessment/Plan 1. Anasarca 2/2 severe protein calorie malnutrition related to colon cancer.- s/ p albumin infusion. On Lasix. Colon ca with likely liver mets per medical records. LE edema improving. 2. Leukocytosis, elevated CRP - Will r/o infection. CXR/UA/CT Abd ordered. Afebrile. Hold Abx until a source is notable. 2. Upper ext Basilic vein thrombosis - was on lovenox. Spoke with Dr. Deshpande, who recommends anticoagulation for 3 months, and he will be seeing the patient in the office. Cont eliquis. 3. Metabolic/hepatic encephalopathy -. rifaxamin/lactulose 4. Anemia - improving. S/p PRBC. Stable. No bleeding noted. 5. LUISA resolved.. Appreciate nephro input 6. Severe Protein calorie malnutrition due to advanced cancer and poor oral intake. Dietary consult pending and noting liver mets: continue ensure with meals. 7. Hypokalemia - improved. 8. Leukocytosis - likely 2/2 steroids. No source of infection. 9. Ascities s/p paracentesis 3/2 L on 04/15 - cx negative 10. Metastatic colon ca - following with oncologist at [place]. s/p chemo, with plan for more cycles for palliative therapy. 11. H/o shingles on valacyclovir. 12. Chronic pain on oxycodone. 13. Hematuria - resolved. D/c liu. Cont to monitor. Hb stable. DVT prophy: On eliquis Prognosis guarded/terminal. VS,Fishbone, I+O VS, Fishbone, I+O Laboratory Tests 04/24/17 06:17 Red Blood Count 3.61 L, Mean Corpuscular Volume 92.0, Mean Corpuscular Hemoglobin 30.5, Mean Corpuscular Hemoglobin Concent 33.1, Red Cell Distribution Width 18.5 H, Calcium Level 8.8, Aspartate Amino Transf (AST/SGOT) 81 H, Alanine Aminotransferase (ALT/SGPT) 40, Alkaline Phosphatase 363 H, Total Bilirubin 0.7, Total Protein 5.6 #L, Albumin 2.2 L Vital Signs Date Time Temp Pulse Resp B/P (MAP) Pulse Ox O2 Delivery O2 Flow Rate FiO2 04/24/17 09:53 18 04/24/17 06:00 97.2 108 119/80 (93) 93 04/23/17 22:30 Room Air 04/18/17 15:28 2.0 I&O- Last 24 Hours up to 6 AM 04/25/17 06:00 Intake Total 0 ml Output Total 0 ml Balance 0 ml CASANDRA EDWARDS MD Apr 24, 2017 10:58
--- NOTE | 2017-04-24 11:14 | REP ---
PORTABLE CHEST: AP portable view of the chest is performed and compared to a prior study of 04/11/2017. There is a new infiltrate in the right lower lobe. Left basilar interstitial opacities are unchanged. Heart is not significantly enlarged and the mediastinal silhouette is unchanged. There is a left central venous catheter again seen with the tip in the superior vena cava. IMPRESSION: New right lower lobe infiltrate. Signed by Kendell Parr MD 04/24/2017 05:34 P
[2017-04-24] MEDS ORDERED: GASTROGRAFIN SOLUTION 30ML (Q9963) PO ONE (11:15)
[2017-04-24 14:00] VITALS: BP 107/71
--- NOTE | 2017-04-24 14:51 | REP ---
CT ABDOMEN AND PELVIS WITH ORAL AND IV CONTRAST: TECHNIQUE: Axial contrast enhanced images from the lung bases to the pubic symphysis using 100 mL Isovue 370 intravenous contrast material with multiplanar reformations. In the visualized lung bases there is moderate right pleural effusion and smaller left pleural effusion. There is adjacent bibasilar atelectasis/infiltrate. Several tiny nodules are seen in the visualized portions of the right lung. There are a couple of tiny nodules in the visualized left lung. Diffuse ill-defined metastatic nodules are seen throughout the liver. Some of these in the right lobe are confluent with an area in the right lobe of the liver nidus involved measuring about 8 to 9 cm in diameter. The spleen is normal in size with no intrinsic abnormality. Bilateral adrenal masses are fairly large and are consistent with metastases to the adrenal glands. Pancreas appears unremarkable. Kidneys appear unremarkable with no hydronephrosis. Retroperitoneal adenopathy is seen diffusely essentially unchanged since the prior CT of the 04/11/2017. There is mild atherosclerotic calcification of the abdominal aorta without aneurysm. There is no free air. There are again located areas of fluid which have decreased since the prior study. Patient did have ultrasound guided drainage of the dominant collection in the left upper quadrant. There is still loculated fluid in the region of the less sac, and in the left upper and lower quadrants. No pelvic mass is seen. There is a small amount of air in the bladder. This is likely from recent catheterization. There is an apparent pathologic compression fracture of the L2 vertebral body as seen on prior CT. There is no evidence of bowel obstruction with oral contrast seen in the right colon. IMPRESSION: Diffuse metastatic disease in the abdomen as discussed in detail above. Loculated areas of fluid have decreased since prior study status post ultrasound guided drainage. Tiny lung nodules are present. There are bibasilar effusions and infiltrates/atelectasis. No evidence of bowel obstruction. Signed by Kendell Parr MD 04/24/2017 05:39 P
[2017-04-24] MEDS ORDERED: LevoFLOXacin 500 MG TABLET PO ONE (16:30)
[2017-04-24] MEDS ORDERED: VANCOMYCIN HCL 750 MG, VIAL MATE ADAPTER 1 EACH in D5W 250 ML IV SCH (17:00)
[2017-04-24] MEDS ORDERED: VANCOMYCIN HCL 500 MG in D5W MINI-BAG PLUS 100 ML IV ONE (18:00)
[2017-04-24] MEDS ORDERED: VANCOMYCIN HCL 750 MG, VIAL MATE ADAPTER 1 EACH in D5W 250 ML IV ONE (18:00)
[2017-04-24 22:00] VITALS: BP 118/75
[2017-04-25] MEDS: LACTULOSE 20 GM/30 ML SYRUP UD PO SCH ×4 (00:16→17:24)
[2017-04-25] MEDS: SIMETHICONE 80 MG CHEW TAB PO SCH ×4 (00:16→17:38)
[2017-04-25] MEDS: VANCOMYCIN HCL 1,000 MG, VIAL MATE ADAPTER 1 EACH in D5W 250 ML IV SCH ×2 (05:06→17:39)
[2017-04-25] MEDS: oxyCODONE 5MG TAB PO PRN ×2 (05:06→17:39)
[2017-04-25 05:29] LABS: MEAN CORPUSCULAR HEMOGLOBIN 30.3 pg (27.0-33.0); MEAN CORPUSCULAR HGB CONC 32.4 g/dl (32.0-36.5); MEAN CORPUSCULAR VOLUME 93.4 fl (80.0-96.0); PLATELET COUNT, AUTOMATED 274 10^3/uL (150-450); RED CELL DISTRIBUTION WIDTH 18.4 % (11.5-14.5); WHITE BLOOD COUNT 17.5 10^3/uL (4.0-10.0)
[2017-04-25 05:31] LABS: ADD MANUAL DIFFER YES; DIFF SLIDE NUMBER 41; POS COUNT POS FLAG; POSITIVE MORPH POS FLAG
[2017-04-25 06:00] VITALS: BP 118/78
[2017-04-25 06:00] LABS: ERYTHROCYTE SEDIMENTATION RATE 86 mm/hr (0-20)
[2017-04-25 06:17] LABS: ANISOCYTOSIS 2+; POIKILOCYTOSIS 2+
[2017-04-25] MEDS: SODIUM CHLORIDE 0.9% INJ 10 ML SYR IV PRN (06:37)
[2017-04-25 06:45] LABS: ALBUMIN 2.1 GM/DL (3.2-5.2); ALBUMIN/GLOBULIN RATIO 0.75 (1.00-1.93); ALKALINE PHOSPHATASE 413 U/L (45-117); ALT/SGPT 38 U/L (12-78); ANION GAP 11 MEQ/L (8-16); AST/SGOT 72 U/L (7-37); BILIRUBIN,TOTAL 0.5 MG/DL (0.2-1.0); BLOOD UREA NITROGEN 18 MG/DL (7-18); CALCIUM LEVEL 8.6 MG/DL (8.5-10.1); CARBON DIOXIDE LEVEL 23 MEQ/L (21-32); CHLORIDE LEVEL 104 MEQ/L (98-107); CREATININE FOR GFR 0.94 MG/DL (0.70-1.30); GLOMERULAR FILTRATION RATE > 60.0 (>56); GLUCOSE, FASTING 123 MG/DL (70-105); MAGNESIUM LEVEL 1.6 MG/DL (1.8-2.4); POTASSIUM SERUM 4.3 MEQ/L (3.5-5.1); SODIUM LEVEL 138 MEQ/L (136-145); TOTAL PROTEIN 4.9 GM/DL (6.4-8.2)
[2017-04-25] MEDS: valACYclovir HCL 500 MG TAB PO SCH (08:40)
[2017-04-25] MEDS: MEGESTROL SUSP 400 MG/10 ML UDC PO SCH (08:40)
[2017-04-25] MEDS: oxyCODONE 10 MG CR TAB PO SCH ×2 (08:41→20:26)
[2017-04-25] MEDS: rifAXIMin 550 MG TAB (XIFAXAN) PO SCH ×2 (08:42→20:26)
[2017-04-25] MEDS: PANTOPRAZOLE 40MG TAB (PROTONIX) PO SCH ×2 (08:42→20:26)
[2017-04-25] MEDS: predniSONE 5 MG TAB PO SCH (08:42)
[2017-04-25] MEDS: FUROSEMIDE 20 MG TAB PO SCH (08:42)
[2017-04-25] MEDS: GABAPENTIN 100 MG CAP PO SCH ×2 (08:42→20:26)
[2017-04-25] MEDS: APIXABAN 5 MG TAB (ELIQUIS) PO SCH ×2 (08:43→20:27)
[2017-04-25] MEDS: FERROUS SULFATE 325MG TAB PO SCH (08:44)
[2017-04-25] MEDS: SODIUM CHLORIDE 0.9% INJ 10 ML SYR IV SCH (08:44)
[2017-04-25] MEDS ORDERED: VANCOMYCIN HCL 750 MG, VIAL MATE ADAPTER 1 EACH in D5W 250 ML IV ONE (12:00)
--- NOTE | 2017-04-25 13:43 | IPNPDOC ---
Text Note Date of Service The patient was seen on 04/25/17. NOTE Subjective: Chest x-ray with right sided infiltrate. Denies cough. Objective: Vitals: (see below) General: No acute distress, laying comfortably in bed. HEENT: Moist mucous membranes. Neck: No JVD or lymphadenopathy Cardiac: RRR, No murmurs Pulm: Clear to auscultation b/l. No wheezing, rhonchi Abd: No abd pain. No rebound/guarding/rigidity. Mildly distended. + BS Ext:1+ Pitting edema BLE. edema or cyanosis Labs (see below) Images: Assessment/Plan 1. Anasarca 2/2 severe protein calorie malnutrition related to colon cancer.- s/ p albumin infusion. On Lasix. Colon ca with likely liver mets per medical records. LE edema improving. 2. Healthcare acquired pneumonia- started on vancomycin and Levaquin. We'll trend CRP/WBC. 2. Upper ext Basilic vein thrombosis - was on lovenox. Spoke with Dr. Deshpande, who recommends anticoagulation for 3 months, and he will be seeing the patient in the office. Cont eliquis. 3. Metabolic/hepatic encephalopathy -. rifaxamin/lactulose 4. Anemia - improving. S/p PRBC. Stable. No bleeding noted. 5. LUISA resolved.. Appreciate nephro input 6. Severe Protein calorie malnutrition due to advanced cancer and poor oral intake. Dietary consult pending and noting liver mets: continue ensure with meals. 7. Hypokalemia - improved. 8. Leukocytosis - likely 2/2 steroids. No source of infection. 9. Ascities s/p paracentesis 3/2 L on 04/15 - cx negative 10. Metastatic colon ca - following with oncologist at [place]. s/p chemo, with plan for more cycles for palliative therapy. 11. H/o shingles on valacyclovir. 12. Chronic pain on oxycodone. 13. Hematuria - resolved. D/c liu. Cont to monitor. Hb stable. DVT prophy: On eliquis Prognosis guarded/terminal. Patient and would like to remain full code with active measures. VS,Fishbone, I+O VS, Fishbone, I+O Laboratory Tests 04/25/17 05:12 Red Blood Count 3.50 L, Mean Corpuscular Volume 93.4, Mean Corpuscular Hemoglobin 30.3, Mean Corpuscular Hemoglobin Concent 32.4, Red Cell Distribution Width 18.4 H, Monocytes # (Auto) , Calcium Level 8.6, Aspartate Amino Transf (AST/SGOT) 72 H, Alanine Aminotransferase (ALT/SGPT) 38, Alkaline Phosphatase 413 H, Total Bilirubin 0.5, Total Protein 4.9 L, Albumin 2.1 L Vital Signs Date Time Temp Pulse Resp B/P (MAP) Pulse Ox O2 Delivery O2 Flow Rate FiO2 04/25/17 08:41 14 Room Air 04/25/17 06:00 97.6 106 118/78 (91) 94 I&O- Last 24 Hours up to 6 AM 04/26/17 06:00 Intake Total 270 ml Balance 270 ml CASANDRA EDWARDS MD Apr 25, 2017 13:43
[2017-04-25 14:00] VITALS: BP 129/88
[2017-04-25] MEDS: LevoFLOXacin 500 MG TABLET PO SCH (17:38)
[2017-04-25 22:00] VITALS: BP 120/83
[2017-04-26] MEDS: SIMETHICONE 80 MG CHEW TAB PO SCH ×4 (00:26→18:09)
[2017-04-26] MEDS: LACTULOSE 20 GM/30 ML SYRUP UD PO SCH ×4 (00:27→18:08)
[2017-04-26] MEDS: oxyCODONE 5MG TAB PO PRN ×3 (00:28→16:46)
[2017-04-26] MEDS: SODIUM CHLORIDE 0.9% INJ 10 ML SYR IV PRN ×2 (05:05→21:19)
[2017-04-26 05:13] LABS: MEAN CORPUSCULAR HEMOGLOBIN 30.4 pg (27.0-33.0); MEAN CORPUSCULAR HGB CONC 32.8 g/dl (32.0-36.5); MEAN CORPUSCULAR VOLUME 92.8 fl (80.0-96.0); PLATELET COUNT, AUTOMATED 245 10^3/uL (150-450); RED CELL DISTRIBUTION WIDTH 18.3 % (11.5-14.5)
[2017-04-26 05:16] LABS: ADD MANUAL DIFFER YES; DIFF SLIDE NUMBER 25; POS COUNT POS FLAG; POSITIVE MORPH POS FLAG
[2017-04-26 05:57] LABS: ALBUMIN/GLOBULIN RATIO 0.56 (1.00-1.93); ALKALINE PHOSPHATASE 402 U/L (45-117); ALT/SGPT 35 U/L (12-78); ANION GAP 11 MEQ/L (8-16); AST/SGOT 59 U/L (7-37); BILIRUBIN,TOTAL 0.6 MG/DL (0.2-1.0); BLOOD UREA NITROGEN 18 MG/DL (7-18); CARBON DIOXIDE LEVEL 23 MEQ/L (21-32); CHLORIDE LEVEL 103 MEQ/L (98-107); CREATININE FOR GFR 0.98 MG/DL (0.70-1.30); GLOMERULAR FILTRATION RATE > 60.0 (>56); GLUCOSE, FASTING 90 MG/DL (70-105); MAGNESIUM LEVEL 1.6 MG/DL (1.8-2.4); POTASSIUM SERUM 4.1 MEQ/L (3.5-5.1); SODIUM LEVEL 137 MEQ/L (136-145); TOTAL PROTEIN 5.6 GM/DL (6.4-8.2)
[2017-04-26 06:00] VITALS: BP 110/70
[2017-04-26] MEDS: VANCOMYCIN HCL 1,000 MG, VIAL MATE ADAPTER 1 EACH in D5W 250 ML IV SCH ×2 (06:07→18:56)
--- NOTE | 2017-04-26 06:18 | PHACANCOPD ---
PHARMACY VANCOMYCIN DOSING Pt Demographics Demographics Patient Age:56 , Weight:77.800 , Gender: male Adjusted Body Weight Date: 04/26/17, Adjusted Body Weight: Kg Events Past 24 Hours Events Past 24 Hours: NO: Dialysis, Diuretic Therapy, Change in CrCl, Fever, Elevation in WBC, Pending Diagnostics, Pending Procedures, Other Vancomycin Vancomycin Target Ranges: 15-20 mcg/ml Vancomycin Load Y/N: Yes Load Dose Date Time Vancomycin Load Dose: 1500MG Date: 04-24 Time: ? Vancomycin Dose Date: 04/26/17. Current Vancomycin Dose: [1000MG Q24H] Intermittent Dosing?: No Labs Labs Item Value Date Time White Blood Count 17.0 10^3/uL H 04/26/17 0503 Creatinine 0.98 MG/DL 04/26/17 0503 Vancomycin Level Trough 30.7 UG/ML *H 04/26/17 0503 Vital Signs Label Value Date Time Patient Temperature 98.5 degrees F 04/25/17 2200 Temperature Source Temporal 04/25/17 2200 Micro Microbiology 04/18/17 Blood Culture - Final, Complete NO GROWTH AFTER 5 DAYS 04/18/17 Blood Culture - Final, Complete NO GROWTH AFTER 5 DAYS 04/21/17 Gastrointestinal Tract Panel (PCR) - Final, Complete 04/24/17 Urine Culture, Received Pending Creatinine Clearance Date:04/26/17. Creatinine Clearance: [94]. actual crcl much lower Pending Labs Trough 04-26 @ 1700 Assessment and Plan Maintaining Current Dose?: No Reason for dose change: Trough too high Pharmacist Note Pharmacist Note Date: 04/26/17. Pharmacist note:Trough of 30.7 is above target range. Dose decreased to 1000mg q24h. Trough ordered for 04-26 @1700 prior to start of q24h dosing to access new schedule. Will continue to monitor and make adjustments as needed. MADAN BROWN PHARMACY Apr 26, 2017 06:18
[2017-04-26 07:04] LABS: BANDS 1 % (< 11); TEAR DROP CELLS 1+
[2017-04-26 07:05] LABS: ANISOCYTOSIS 2+; PLATELET CLUMPS SMALL AMT
[2017-04-26 07:21] LABS: ERYTHROCYTE SEDIMENTATION RATE 107 mm/hr (0-20)
[2017-04-26] MEDS: ZINC SULFATE 220 MG CAP PO SCH ×2 (09:00→20:02)
[2017-04-26] MEDS: MEGESTROL SUSP 400 MG/10 ML UDC PO SCH (09:11)
[2017-04-26] MEDS: valACYclovir HCL 500 MG TAB PO SCH (09:12)
[2017-04-26] MEDS: oxyCODONE 10 MG CR TAB PO SCH ×2 (09:12→20:03)
[2017-04-26] MEDS: predniSONE 5 MG TAB PO SCH (09:13)
[2017-04-26] MEDS: GABAPENTIN 100 MG CAP PO SCH ×2 (09:13→20:03)
[2017-04-26] MEDS: FUROSEMIDE 20 MG TAB PO SCH (09:13)
[2017-04-26] MEDS: APIXABAN 5 MG TAB (ELIQUIS) PO SCH ×2 (09:13→20:03)
[2017-04-26] MEDS: rifAXIMin 550 MG TAB (XIFAXAN) PO SCH ×2 (09:13→20:03)
[2017-04-26] MEDS: FERROUS SULFATE 325MG TAB PO SCH (09:13)
[2017-04-26] MEDS: PANTOPRAZOLE 40MG TAB (PROTONIX) PO SCH ×2 (09:13→20:02)
[2017-04-26] MEDS: SODIUM CHLORIDE 0.9% INJ 10 ML SYR IV SCH (09:14)
[2017-04-26] MEDS ORDERED: MAG SULF 1GM/100ML (MAG RUN) 1 GM in APPROPRIATE DILUENT 1 EA IV ONE ×2 (10:45→14:00)
--- NOTE | 2017-04-26 13:56 | IPN ---
DATE: 04/26/2017 Mr. Hernandez is complaining of abdominal pain. He says that it is not different than previous episodes of abdominal pain that he has had. There is no increasing distention. It is crampy. He continues to have bowel movements. He is concerned that the simethicone is not helping and pain medicine only helps fleetingly. Temperature 98.8, pulse 102, respiratory rate 17, blood pressure 110/70, 92% on room air. He is awake, appropriately interactive, pleasantly conversant. is at bedside and is a good historian. Head is normocephalic. Mucous membranes are moist. Neck is supple. Breathing is symmetrical. I:E ratio is 1:3. Heart is distant sounding. Normal S1, S2. Abdomen is soft. There is no fluid wave. Nontender with bowel sounds noted. There is bilateral lower extremity edema. White cell count is 17, hemoglobin 10.5, and platelets of 245. BUN 18, creatinine 0.98. ASSESSMENT: This is a 56-year-old with multiple medical issues. PLAN: 1. The patient has healthcare associated pneumonia and is being treated with vancomycin and Levaquin. Continue current management. 2. The patient has upper extremity basilic vein thrombosis, who is on Eliquis for anticoagulation to have a total of 3 months of anticoagulation. 3. The patient has anasarca secondary to severe protein calorie malnutrition related to his underlying colon cancer. He does have lower extremity edema. 4. The patient has hypomagnesemia, which is repleted. 5. The patient has had hypokalemia during this stay. 6. The patient has a history of shingles, on valacyclovir. 7. The patient has metastatic colon cancer. Following with Dr. Bernal in [place]. Is on palliative therapy. 8. The patient has hematuria during this stay, which has resolved. 9. The patient has deep vein thrombosis (DVT) prophylaxis with Eliquis. The case was discussed with patient and at bedside.
[2017-04-26 14:00] VITALS: BP 103/76
[2017-04-26] MEDS: LevoFLOXacin 500 MG TABLET PO SCH (18:09)
[2017-04-26 22:00] VITALS: BP 124/83
[2017-04-27] MEDS: LACTULOSE 20 GM/30 ML SYRUP UD PO SCH ×4 (00:04→17:22)
[2017-04-27] MEDS: oxyCODONE 5MG TAB PO PRN ×3 (00:05→17:23)
[2017-04-27] MEDS: SIMETHICONE 80 MG CHEW TAB PO SCH ×4 (00:05→17:23)
[2017-04-27] MEDS: SODIUM CHLORIDE 0.9% INJ 10 ML SYR IV PRN ×2 (04:42→20:19)
[2017-04-27 05:10] LABS: MEAN CORPUSCULAR HEMOGLOBIN 30.6 pg (27.0-33.0); MEAN CORPUSCULAR HGB CONC 32.7 g/dl (32.0-36.5); MEAN CORPUSCULAR VOLUME 93.6 fl (80.0-96.0); PLATELET COUNT, AUTOMATED 268 10^3/uL (150-450); RED CELL DISTRIBUTION WIDTH 18.1 % (11.5-14.5); WHITE BLOOD COUNT 16.8 10^3/uL (4.0-10.0)
[2017-04-27 05:14] LABS: ADD MANUAL DIFFER YES; DIFF SLIDE NUMBER 21; POS COUNT POS FLAG; POSITIVE MORPH POS FLAG
[2017-04-27 05:28] LABS: ALBUMIN 1.9 GM/DL (3.2-5.2); ALBUMIN/GLOBULIN RATIO 0.54 (1.00-1.93); ALKALINE PHOSPHATASE 410 U/L (45-117); ALT/SGPT 34 U/L (12-78); ANION GAP 10 MEQ/L (8-16); AST/SGOT 61 U/L (7-37); BILIRUBIN,TOTAL 0.5 MG/DL (0.2-1.0); BLOOD UREA NITROGEN 19 MG/DL (7-18); CARBON DIOXIDE LEVEL 24 MEQ/L (21-32); CHLORIDE LEVEL 103 MEQ/L (98-107); CREATININE FOR GFR 1.07 MG/DL (0.70-1.30); GLOMERULAR FILTRATION RATE > 60.0 (>56); GLUCOSE, FASTING 115 MG/DL (70-105); POTASSIUM SERUM 4.2 MEQ/L (3.5-5.1); SODIUM LEVEL 137 MEQ/L (136-145); TOTAL PROTEIN 5.4 GM/DL (6.4-8.2)
[2017-04-27 06:00] VITALS: BP 115/80
[2017-04-27 07:04] LABS: ANISOCYTOSIS 1+; BANDS 2 % (< 11)
[2017-04-27 07:05] LABS: POIKILOCYTOSIS 1+
[2017-04-27] MEDS: rifAXIMin 550 MG TAB (XIFAXAN) PO SCH ×2 (09:42→20:18)
[2017-04-27] MEDS: valACYclovir HCL 500 MG TAB PO SCH (09:42)
[2017-04-27] MEDS: MEGESTROL SUSP 400 MG/10 ML UDC PO SCH (09:42)
[2017-04-27] MEDS: ZINC SULFATE 220 MG CAP PO SCH ×2 (09:42→20:16)
[2017-04-27] MEDS: GABAPENTIN 100 MG CAP PO SCH ×2 (09:42→20:18)
[2017-04-27] MEDS: oxyCODONE 10 MG CR TAB PO SCH ×2 (09:42→20:17)
[2017-04-27] MEDS: PANTOPRAZOLE 40MG TAB (PROTONIX) PO SCH ×2 (09:43→20:18)
[2017-04-27] MEDS: FERROUS SULFATE 325MG TAB PO SCH (09:43)
[2017-04-27] MEDS: SODIUM CHLORIDE 0.9% INJ 10 ML SYR IV SCH (09:43)
[2017-04-27] MEDS: predniSONE 5 MG TAB PO SCH (09:43)
[2017-04-27] MEDS: APIXABAN 5 MG TAB (ELIQUIS) PO SCH ×2 (09:43→20:18)
[2017-04-27] MEDS: FUROSEMIDE 20 MG TAB PO SCH (09:43)
[2017-04-27 14:00] VITALS: BP 101/71
[2017-04-27] MEDS: LevoFLOXacin 500 MG TABLET PO SCH (17:22)
[2017-04-27] MEDS: VANCOMYCIN HCL 1,000 MG, VIAL MATE ADAPTER 1 EACH in D5W 250 ML IV SCH (18:28)
[2017-04-27 20:00] VITALS: BP 102/71
--- NOTE | 2017-04-27 21:07 | IPN ---
DATE: 04/27/2017 Mr. Hernandez is feeling okay today. He still has abdominal pain, which has not been helped with the increase of simethicone. He is tolerating some potatoes this morning, which he had been craving. His abdomen is not particularly distended by historical standards according to him and his . Temperature is 98.2, pulse 102, respiratory rate 17, blood pressure 116/80, 95% on room air. Ins Outs notable for positive fluid balance of 180, Three bowl movements yesterday. He is awake, appropriately interactive, somewhat flattened affect. Not particularly icteric. Mucous membranes moist. Neck supple. Breathing symmetrical, diminished. Heart is distant sounding. Normal S1, S2. Abdomen is a little more distended than yesterday after I removed his abdominal binder. There is no concernable fluid wave. He has mild diffuse tenderness without rebound or guarding. He has lower extremity edema, which is at least 1+. White cell count 16.8, hemoglobin1 0.9 and platelets of 268. BUN 19, creatinine 1.07, magnesium is 2 which has normalized. Alkaline phosphatase is 410, AST is 61, ALT is 34, albumin is 1.9. Urine from the grew VRE; sensitive to Zyvox. MY ASSESSMENT IS FOLLOWS: 56-year-old with multiple medical issues. PLAN IS FOLLOWS: 1. Patient is being treated for health care associated pneumonia with Vancomycin and Levaquin. Continuing current management. 2. Patient has VRE in his urine, over 100,000 colony forming units. He is not showing any symptoms currently. Did switch the treatment for his health care associated pneumonia to Zyvox and Levaquin, which is not unreasonable should he start to present symptoms. 3. Patient has upper extremity basilic vein thrombosis, is on Eliquis. 4. Patient has anasarca secondary to severe protein calorie malnutrition related to underlying colon cancer. 5. Patient has hypomagnesemia, which has resolved. 6. Patient has hypokalemia, which has resolved during his stay. 7. Patient has history of Shingles, on valacyclovir. 8. Patient has metastatic colon cancer. Follows with Dr. Ruiz in [place]. Is on palliative therapy. 9. Patient has had hematuria during his stay, which has resolved. 10. Patient has deep vein thrombosis prophylaxis with Eliquis. 11. Case as discussed with the patient and his at bed side. 12. Patient has been on a long course of steroids, which will be weaned again today.
[2017-04-27 22:00] VITALS: BP 102/71
[2017-04-28] MEDS: LACTULOSE 20 GM/30 ML SYRUP UD PO SCH ×4 (00:03→18:35)
[2017-04-28] MEDS: SIMETHICONE 80 MG CHEW TAB PO SCH ×4 (00:04→18:36)
[2017-04-28] MEDS: SODIUM CHLORIDE 0.9% INJ 10 ML SYR IV PRN ×2 (04:40→20:11)
[2017-04-28] MEDS: oxyCODONE 5MG TAB PO PRN ×3 (04:44→21:02)
[2017-04-28 04:46] LABS: MEAN CORPUSCULAR HEMOGLOBIN 30.2 pg (27.0-33.0); MEAN CORPUSCULAR HGB CONC 32.4 g/dl (32.0-36.5); MEAN CORPUSCULAR VOLUME 93.2 fl (80.0-96.0); PLATELET COUNT, AUTOMATED 241 10^3/uL (150-450)
[2017-04-28 05:09] LABS: ADD MANUAL DIFFER YES; DIFF SLIDE NUMBER 8; POS COUNT POS FLAG; POSITIVE MORPH POS FLAG
[2017-04-28 05:35] LABS: EOSINOPHILS 1 % (0-5); POIKILOCYTOSIS 2+
[2017-04-28 05:36] LABS: ANISOCYTOSIS 1+
[2017-04-28 06:00] VITALS: BP 98/67
[2017-04-28 07:15] LABS: ALBUMIN 1.9 GM/DL (3.2-5.2); ALBUMIN/GLOBULIN RATIO 0.58 (1.00-1.93); ALKALINE PHOSPHATASE 422 U/L (45-117); ALT/SGPT 35 U/L (12-78); ANION GAP 11 MEQ/L (8-16); AST/SGOT 63 U/L (7-37); BILIRUBIN,TOTAL 0.5 MG/DL (0.2-1.0); BLOOD UREA NITROGEN 18 MG/DL (7-18); CALCIUM LEVEL 9.2 MG/DL (8.5-10.1); CARBON DIOXIDE LEVEL 23 MEQ/L (21-32); CHLORIDE LEVEL 104 MEQ/L (98-107); CREATININE FOR GFR 1.09 MG/DL (0.70-1.30); GLOMERULAR FILTRATION RATE > 60.0 (>56); GLUCOSE, FASTING 89 MG/DL (70-105); MAGNESIUM LEVEL 1.7 MG/DL (1.8-2.4); POTASSIUM SERUM 4.2 MEQ/L (3.5-5.1); SODIUM LEVEL 138 MEQ/L (136-145); TOTAL PROTEIN 5.2 GM/DL (6.4-8.2)
[2017-04-28] MEDS: GABAPENTIN 100 MG CAP PO SCH ×2 (09:30→20:10)
[2017-04-28] MEDS: oxyCODONE 10 MG CR TAB PO SCH ×2 (09:30→20:10)
[2017-04-28] MEDS: PANTOPRAZOLE 40MG TAB (PROTONIX) PO SCH ×2 (09:31→20:10)
[2017-04-28] MEDS: ZINC SULFATE 220 MG CAP PO SCH ×2 (09:31→20:10)
[2017-04-28] MEDS: APIXABAN 5 MG TAB (ELIQUIS) PO SCH ×2 (09:31→20:10)
[2017-04-28] MEDS: predniSONE 2.5 MG TAB PO SCH (09:31)
[2017-04-28] MEDS: FERROUS SULFATE 325MG TAB PO SCH (09:32)
[2017-04-28] MEDS: FUROSEMIDE 20 MG TAB PO SCH (09:32)
[2017-04-28] MEDS: MEGESTROL SUSP 400 MG/10 ML UDC PO SCH (09:32)
[2017-04-28] MEDS: valACYclovir HCL 500 MG TAB PO SCH (09:33)
[2017-04-28] MEDS: rifAXIMin 550 MG TAB (XIFAXAN) PO SCH ×2 (09:33→20:10)
[2017-04-28] MEDS: SODIUM CHLORIDE 0.9% INJ 10 ML SYR IV SCH (09:35)
[2017-04-28] MEDS ORDERED: ISOVUE-370 76% 100ML VIAL (Q9967) As Ordered ONE (10:22)
[2017-04-28] MEDS ORDERED: MAG SULF 1GM/100ML (MAG RUN) 1 GM in APPROPRIATE DILUENT 1 EA IV ONE (10:30)
[2017-04-28] MEDS ORDERED: GASTROGRAFIN SOLUTION 30ML PO ONE (11:00)
[2017-04-28] MEDS ORDERED: GASTROGRAFIN SOLUTION 30ML (Q9963) PO ONE (11:30)
[2017-04-28 14:00] VITALS: BP 113/74
--- NOTE | 2017-04-28 14:38 | REP ---
Clinical: Increased abdominal pain. Comparison: 04/24/2017. Technique: Axial images from the lung bases to the pubic symphysis using oral contrast as per protocol with coronal and sagittal re-formations. Findings: Small to moderate bilateral pleural effusions with lower lobe consolidations remain essentially unchanged. Diffuse metastatic disease throughout the liver as well as a large bilateral adrenal mass lesions and scattered mesenteric and retroperitoneal adenopathy remain unchanged. Moderate collection of fluid in the lesser sac and upper abdomen as well as loculated collection along the greater curvature of the stomach and in the left lower quadrant remain unchanged. Spleen, pancreas, and bilateral kidneys are relatively stable and grossly unremarkable by noncontrast evaluation. Cholelithiasis noted. Evidence for prior enteric surgery fluid-filled small and large bowel suggesting ileus without definite evidence for obstruction. No free air. Atherosclerotic changes of the aorta and vasculature without aneurysm. Pelvis demonstrates normal bladder and age appropriate prostate/seminal vesicles. Surrounding musculoskeletal structures demonstrate age-related degenerative changes along with presumed metastatic focus at L2 with pathologic compression fracture. Impression: 1. No significant change from prior examination. Diffuse metastatic disease including hepatic metastases, adrenal metastases, retroperitoneal adenopathy, and pathologic compression fracture at L2 remains stable. 2. Stable fluid collections and mesenteric edema. 3. Bilateral pleural effusions and lower lobe consolidations unchanged. 4. Further chronic findings as described above. No obvious new acute process when compared to 04/24/2017. Signed by Lambert Sanchez MD 04/28/2017 02:29 P
[2017-04-28] MEDS: LevoFLOXacin 500 MG TABLET PO SCH (18:35)
[2017-04-28] MEDS: VANCOMYCIN HCL 1,000 MG, VIAL MATE ADAPTER 1 EACH in D5W 250 ML IV SCH (18:36)
[2017-04-28 22:00] VITALS: BP 109/77
[2017-04-29] MEDS: LACTULOSE 20 GM/30 ML SYRUP UD PO SCH ×5 (00:22→23:20)
[2017-04-29] MEDS: SIMETHICONE 80 MG CHEW TAB PO SCH ×5 (00:22→23:20)
[2017-04-29] MEDS: oxyCODONE 5MG TAB PO PRN ×3 (03:02→17:59)
[2017-04-29 05:30] LABS: MEAN CORPUSCULAR HEMOGLOBIN 30.9 pg (27.0-33.0); MEAN CORPUSCULAR HGB CONC 33.1 g/dl (32.0-36.5); MEAN CORPUSCULAR VOLUME 93.4 fl (80.0-96.0); PLATELET COUNT, AUTOMATED 243 10^3/uL (150-450); WHITE BLOOD COUNT 15.9 10^3/uL (4.0-10.0)
[2017-04-29 05:32] LABS: ADD MANUAL DIFFER YES; DIFF SLIDE NUMBER 5; POS COUNT POS FLAG; POSITIVE MORPH POS FLAG
[2017-04-29 05:48] LABS: ALBUMIN 1.9 GM/DL (3.2-5.2); ALBUMIN/GLOBULIN RATIO 0.56 (1.00-1.93); ALKALINE PHOSPHATASE 447 U/L (45-117); ALT/SGPT 37 U/L (12-78); ANION GAP 10 MEQ/L (8-16); AST/SGOT 77 U/L (7-37); BILIRUBIN,TOTAL 0.7 MG/DL (0.2-1.0); BLOOD UREA NITROGEN 18 MG/DL (7-18); CALCIUM LEVEL 8.8 MG/DL (8.5-10.1); CARBON DIOXIDE LEVEL 24 MEQ/L (21-32); CHLORIDE LEVEL 102 MEQ/L (98-107); CREATININE FOR GFR 1.16 MG/DL (0.70-1.30); GLOMERULAR FILTRATION RATE > 60.0 (>56); GLUCOSE, FASTING 104 MG/DL (70-105); MAGNESIUM LEVEL 1.6 MG/DL (1.8-2.4); POTASSIUM SERUM 3.9 MEQ/L (3.5-5.1); SODIUM LEVEL 136 MEQ/L (136-145); TOTAL PROTEIN 5.3 GM/DL (6.4-8.2)
[2017-04-29 06:00] VITALS: BP 119/75
[2017-04-29 06:31] LABS: ANISOCYTOSIS 2+; BANDS 3 % (< 11)
--- NOTE | 2017-04-29 08:18 | IPN ---
DATE OF SERVICE: 04/28/2017 Mr. Hernandez is complaining of increasing abdominal pain today, not associated with bowel movements, not particularly positional, is increasing especially left lower quadrant pain. He is tolerating some diet. He has six slices of jordan on his tray. Temperature is 98.4, pulse 99, respiratory rate 18, blood pressure 98/67, 95% on room air. Input and output notable for a positive fluid balance of 1110, 2 bowel movements yesterday, 1 thus far today which is yet to be recorded in the computer. He is awake, appropriately interactive. Appears uncomfortable. Neck supple. Breathing symmetrical, rested. Heart: Regular rate and rhythm. Abdomen: Soft with hyperactive bowel sounds, tenderness bilateral lower quadrants without rebound or guarding. White cell count 16, hemoglobin 9.3, platelets 241. BUN 18, creatinine 1.09. Repeat urine culture is pending. Repeat UA done yesterday is totally unremarkable. ASSESSMENT: This is a 56-year-old with multiple medical issues. PLAN: 1. Patient is being treated for health care associated pneumonia with vancomycin and Levaquin. Continue on current management. 2. Patient has VRE in his urine which is felt to be colonization based on the fact that he is currently having absolutely no symptoms of dysuria or frequency. He does have abdominal pain which is most likely related to another issue. 3. Patient has an upper extremity basilic vein thrombosis on Eliquis. 4. Patient has anasarca secondary to serum protein calorie malnutrition related to underlying colon cancer. I do not appreciate fluid that is drainable on physical exam in his abdomen but based on his increasing pain, we will obtain a CT of the abdomen and pelvis with IV and oral contrast. 5. Patient has hypomagnesemia which will be repleted. 6. Patient has hypokalemia which has resolved. 7. Patient has history of shingles on Valacyclovir. 8. Patient has metastatic colon cancer. Followup with Dr. Bernal in [place], is on palliative therapy. 9. Patient has had hematuria during his stay which has resolved. 10. Patient has deep venous thrombosis (DVT) prophylaxis in the form of Eliquis. 11. Patient's daughter is at bedside. Patient is on a weaning course of steroids which was weaned on the .
[2017-04-29] MEDS: MEGESTROL SUSP 400 MG/10 ML UDC PO SCH (08:22)
[2017-04-29] MEDS: SODIUM CHLORIDE 0.9% INJ 10 ML SYR IV SCH (08:23)
[2017-04-29] MEDS: ZINC SULFATE 220 MG CAP PO SCH ×2 (08:23→20:13)
[2017-04-29] MEDS: FUROSEMIDE 20 MG TAB PO SCH (08:24)
[2017-04-29] MEDS: oxyCODONE 10 MG CR TAB PO SCH ×2 (08:24→20:12)
[2017-04-29] MEDS: APIXABAN 5 MG TAB (ELIQUIS) PO SCH ×2 (08:25→20:12)
[2017-04-29] MEDS: PANTOPRAZOLE 40MG TAB (PROTONIX) PO SCH ×2 (08:25→20:12)
[2017-04-29] MEDS: predniSONE 2.5 MG TAB PO SCH (08:25)
[2017-04-29] MEDS: valACYclovir HCL 500 MG TAB PO SCH (08:25)
[2017-04-29] MEDS: rifAXIMin 550 MG TAB (XIFAXAN) PO SCH ×2 (08:25→20:10)
[2017-04-29] MEDS: GABAPENTIN 100 MG CAP PO SCH ×2 (08:25→20:12)
[2017-04-29] MEDS: FERROUS SULFATE 325MG TAB PO SCH (08:25)
--- NOTE | 2017-04-29 10:22 | REP ---
Clinical: Pain and swelling . Technique: Parr scale and color Doppler evaluation using linear high frequency transducer. Findings: Ultrasound examination of the right lower extremity deep venous structures from the common femoral vein to the popliteal vein demonstrates normal compressibility flow and wave patterns in response to respiration and augmentation. There is no evidence for deep venous thrombosis. Impression: No evidence for deep venous thrombosis of the right lower extremity. Signed by Lambert Sanchez MD 04/29/2017 10:14 A
[2017-04-29] MEDS: MAG SULF 1GM/100ML (MAG RUN) 1 GM in APPROPRIATE DILUENT 1 EA IV SCH ×2 (12:00→12:11)
[2017-04-29 14:00] VITALS: BP 135/88
--- NOTE | 2017-04-29 14:42 | IPN ---
DATE: 04/29/2017 Mr. Hernandez continues to complain of some abdominal pain this morning. When I saw him, he had no complaints of chest pain. No shortness of breath. He is yet to have breakfast because 7:30 is too early to have breakfast. His is at bedside and expresses some concerns about timing of pain medication and then giving as needed medication as opposed to long-acting pain medication, which may make him increasingly sleepy. Temperature is 97.9, pulse 98, respiratory rate 20, blood pressure 119/75, 94% on room air. He is certainly not sleepy now. Input and output notable for a positive fluid balance of 540, two bowel movements yesterday, none thus far today. Weight is 80.2 kg. He is awake, appropriately interactive, pleasantly conversant. Breathing symmetrical, rested. Heart is distant sounding. Abdomen is soft, doughy, nontender. There may be some increased right lower extremity edema when compared to left. White cell count 15.9, hemoglobin 9.4, platelets 243. BUN 18, creatinine 1.16, magnesium 1.6. CT scan yesterday was unchanged from previous, although it did not have IV contrast. ASSESSMENT: This is a 56-year-old with multiple medical issues. PLAN: 1. Patient is being treated for healthcare-associated pneumonia with vancomycin and Levaquin. Continue for a course of [address] scan yesterday showed bilateral pleural effusions and unchanged lower lobe consolidation. 2. Patient has anasarca secondary to serum protein calorie malnutrition related to underlying colon cancer. There is no need to drain ascites at this point based on physical examination. He may require further drainage during the course of his stay and would benefit from albumin around the time of any high volume paracentesis. 3. Patient has hypomagnesemia which will again be repleted. 4. Patient has hypokalemia. 5. Patient has history of shingles on Valacyclovir. 6. Patient has metastatic colon cancer. Followup with Dr. Bernal in [place], he is on palliative therapy. 7. Patient did have hematuria during his stay and has grown VRE in the urine. Repeat culture is negative without antibiotic treatment. Repeat urine was also unremarkable. The patient never had symptoms of urinary tract infection (UTI). 8. Patient has deep venous thrombosis (DVT) prophylaxis in the form of Eliquis. The patient's is at bedside. The patient is on a weaning course of steroids, last weaned on 04/27/2017.
[2017-04-29] MEDS: LevoFLOXacin 500 MG TABLET PO SCH (18:00)
[2017-04-29] MEDS: VANCOMYCIN HCL 1,000 MG, VIAL MATE ADAPTER 1 EACH in D5W 250 ML IV SCH (20:09)
[2017-04-29] MEDS: SODIUM CHLORIDE 0.9% INJ 10 ML SYR IV PRN (21:35)
[2017-04-29 22:00] VITALS: BP 114/73
[2017-04-30] MEDS: LACTULOSE 20 GM/30 ML SYRUP UD PO SCH ×4 (05:37→23:59)
[2017-04-30] MEDS: SIMETHICONE 80 MG CHEW TAB PO SCH ×4 (05:37→23:59)
[2017-04-30] MEDS: SODIUM CHLORIDE 0.9% INJ 10 ML SYR IV PRN (05:42)
[2017-04-30] MEDS: oxyCODONE 5MG TAB PO PRN ×4 (05:59→23:59)
[2017-04-30 06:00] VITALS: BP 110/64
[2017-04-30 06:16] LABS: MEAN CORPUSCULAR HEMOGLOBIN 30.1 pg (27.0-33.0); MEAN CORPUSCULAR HGB CONC 32.6 g/dl (32.0-36.5); MEAN CORPUSCULAR VOLUME 92.2 fl (80.0-96.0); PLATELET COUNT, AUTOMATED 227 10^3/uL (150-450)
[2017-04-30 06:35] LABS: ANION GAP 10 MEQ/L (8-16); BLOOD UREA NITROGEN 18 MG/DL (7-18); CALCIUM LEVEL 8.9 MG/DL (8.5-10.1); CARBON DIOXIDE LEVEL 24 MEQ/L (21-32); CHLORIDE LEVEL 102 MEQ/L (98-107); GLOMERULAR FILTRATION RATE > 60.0 (>56); GLUCOSE, FASTING 103 MG/DL (70-105); MAGNESIUM LEVEL 1.9 MG/DL (1.8-2.4); POTASSIUM SERUM 3.6 MEQ/L (3.5-5.1); SODIUM LEVEL 136 MEQ/L (136-145)
[2017-04-30] MEDS: MEGESTROL SUSP 400 MG/10 ML UDC PO SCH (08:21)
[2017-04-30] MEDS: rifAXIMin 550 MG TAB (XIFAXAN) PO SCH ×2 (08:22→20:24)
[2017-04-30] MEDS: FUROSEMIDE 20 MG TAB PO SCH (08:22)
[2017-04-30] MEDS: valACYclovir HCL 500 MG TAB PO SCH (08:22)
[2017-04-30] MEDS: PANTOPRAZOLE 40MG TAB (PROTONIX) PO SCH ×2 (08:22→20:24)
[2017-04-30] MEDS: ZINC SULFATE 220 MG CAP PO SCH ×2 (08:22→20:24)
[2017-04-30] MEDS: GABAPENTIN 100 MG CAP PO SCH ×2 (08:22→20:24)
[2017-04-30] MEDS: APIXABAN 5 MG TAB (ELIQUIS) PO SCH ×2 (08:23→20:24)
[2017-04-30] MEDS: oxyCODONE 10 MG CR TAB PO SCH ×2 (08:23→20:24)
[2017-04-30] MEDS: FERROUS SULFATE 325MG TAB PO SCH (08:23)
[2017-04-30] MEDS: predniSONE 2.5 MG TAB PO SCH (08:23)
[2017-04-30] MEDS: SODIUM CHLORIDE 0.9% INJ 10 ML SYR IV SCH (08:24)
--- NOTE | 2017-04-30 09:03 | IPNPDOC ---
Text Note Date of Service The patient was seen on 04/30/17. NOTE Subjective: Patient seen and examined at bedside. No acute overnight events reported. No new medical complaints. Objective: General: NAD, lying comfortably in bed HEENT: NC/AT, edentulous Lungs: CTA B/L Heart: +S1S2, RRR Abd: soft, distended, tympanic, NT, +BS Psych: AAOx3 ASSESSMENT: This is a 56-year-old with multiple medical issues. PLAN: 1. Patient is being treated for healthcare-associated pneumonia with vancomycin and Levaquin. Continue for a course of [address] scan showed bilateral pleural effusions and unchanged lower lobe consolidation. 2. Patient has anasarca secondary to serum protein calorie malnutrition related to underlying colon cancer. There is no need to drain ascites at this point based on physical examination. He may require further drainage during the course of his stay and would benefit from albumin around the time of any high volume paracentesis. 3. Hypomagnesemia - resolved. 4. Hypokalemia - resolved. 5. Patient has history of shingles on Valacyclovir. 6. Patient has metastatic colon cancer. Followup with Dr. Bernal in [place] , he is on palliative therapy. 7. Patient did have hematuria during his stay and has grown VRE in the urine. Repeat culture is negative without antibiotic treatment. Repeat urine was also unremarkable. The patient never had symptoms of urinary tract infection (UTI). 8. Patient has deep venous thrombosis (DVT) prophylaxis in the form of Eliquis. The patient's is at bedside. The patient is on a weaning course of steroids. VS,Fishbone, I+O VS, Fishbone, I+O Laboratory Tests 04/30/17 05:51 Calcium Level 8.9 04/30/17 05:53 Red Blood Count 2.96 L, Mean Corpuscular Volume 92.2, Mean Corpuscular Hemoglobin 30.1, Mean Corpuscular Hemoglobin Concent 32.6, Red Cell Distribution Width 18.0 H Vital Signs Date Time Temp Pulse Resp B/P (MAP) Pulse Ox O2 Delivery O2 Flow Rate FiO2 04/30/17 08:23 16 Room Air 04/30/17 06:00 98.3 87 110/64 (79) 96 I&O- Last 24 Hours up to 6 AM 05/01/17 06:00 Intake Total 0 ml Output Total 0 ml Balance 0 ml AIDA SALES MD Apr 30, 2017 09:02
[2017-04-30 14:00] VITALS: BP 110/73
[2017-04-30] MEDS: LevoFLOXacin 500 MG TABLET PO SCH (17:51)
[2017-04-30] MEDS: VANCOMYCIN HCL 1,000 MG, VIAL MATE ADAPTER 1 EACH in D5W 250 ML IV SCH (17:51)
[2017-04-30 22:00] VITALS: BP 107/71
[2017-05-01] MEDS: LACTULOSE 20 GM/30 ML SYRUP UD PO SCH ×4 (05:25→23:07)
[2017-05-01] MEDS: SIMETHICONE 80 MG CHEW TAB PO SCH ×4 (05:26→23:07)
[2017-05-01 05:48] LABS: MEAN CORPUSCULAR HEMOGLOBIN 30.5 pg (27.0-33.0); MEAN CORPUSCULAR HGB CONC 32.8 g/dl (32.0-36.5); MEAN CORPUSCULAR VOLUME 92.8 fl (80.0-96.0); PLATELET COUNT, AUTOMATED 217 10^3/uL (150-450); RED CELL DISTRIBUTION WIDTH 17.9 % (11.5-14.5); WHITE BLOOD COUNT 14.8 10^3/uL (4.0-10.0)
[2017-05-01 06:33] LABS: ALBUMIN 1.8 GM/DL (3.2-5.2); ALBUMIN/GLOBULIN RATIO 0.72 (1.00-1.93); ALKALINE PHOSPHATASE 462 U/L (45-117); ALT/SGPT 36 U/L (12-78); ANION GAP 12 MEQ/L (8-16); AST/SGOT 68 U/L (7-37); BILIRUBIN,TOTAL 0.5 MG/DL (0.2-1.0); BLOOD UREA NITROGEN 18 MG/DL (7-18); CALCIUM LEVEL 8.6 MG/DL (8.5-10.1); CARBON DIOXIDE LEVEL 23 MEQ/L (21-32); CHLORIDE LEVEL 103 MEQ/L (98-107); CREATININE FOR GFR 1.25 MG/DL (0.70-1.30); GLOMERULAR FILTRATION RATE > 60.0 (>56); GLUCOSE, FASTING 98 MG/DL (70-105); MAGNESIUM LEVEL 1.6 MG/DL (1.8-2.4); POTASSIUM SERUM 3.9 MEQ/L (3.5-5.1); SODIUM LEVEL 138 MEQ/L (136-145); TOTAL PROTEIN 4.3 GM/DL (6.4-8.2)
[2017-05-01] MEDS: GABAPENTIN 100 MG CAP PO SCH ×2 (08:16→20:29)
[2017-05-01] MEDS: FUROSEMIDE 20 MG TAB PO SCH (08:16)
[2017-05-01] MEDS: predniSONE 2.5 MG TAB PO SCH (08:16)
[2017-05-01] MEDS: FERROUS SULFATE 325MG TAB PO SCH (08:16)
[2017-05-01] MEDS: valACYclovir HCL 500 MG TAB PO SCH (08:16)
[2017-05-01] MEDS: ZINC SULFATE 220 MG CAP PO SCH ×2 (08:16→20:29)
[2017-05-01] MEDS: APIXABAN 5 MG TAB (ELIQUIS) PO SCH ×2 (08:17→20:29)
[2017-05-01] MEDS: oxyCODONE 10 MG CR TAB PO SCH ×2 (08:17→20:29)
[2017-05-01] MEDS: rifAXIMin 550 MG TAB (XIFAXAN) PO SCH ×2 (08:17→20:29)
[2017-05-01] MEDS: MEGESTROL SUSP 400 MG/10 ML UDC PO SCH (08:17)
[2017-05-01] MEDS: PANTOPRAZOLE 40MG TAB (PROTONIX) PO SCH ×2 (08:17→20:29)
[2017-05-01] MEDS: SODIUM CHLORIDE 0.9% INJ 10 ML SYR IV SCH (08:18)
[2017-05-01] MEDS ORDERED: MAG SULF 1GM/100ML (MAG RUN) 1 GM in APPROPRIATE DILUENT 1 EA IV ONE (08:45)
--- NOTE | 2017-05-01 08:47 | IPNPDOC ---
Text Note Date of Service The patient was seen on 05/01/17. NOTE Subjective: Patient seen and examined at bedside. No acute overnight events reported. No new medical complaints. Objective: General: NAD, lying comfortably in bed HEENT: NC/AT, edentulous Lungs: CTA B/L Heart: +S1S2, RRR Abd: soft, distended, tympanic, NT, +BS Psych: AAOx3 ASSESSMENT: This is a 56-year-old with multiple medical issues. PLAN: 1. Patient is being treated for healthcare-associated pneumonia with vancomycin and Levaquin. Continue for a course of [address] scan showed bilateral pleural effusions and unchanged lower lobe consolidation. 2. Patient has anasarca secondary to serum protein calorie malnutrition related to underlying colon cancer. There is no need to drain ascites at this point based on physical examination. He will likely require drainage during the course of his stay and would benefit from albumin around the time of any high volume paracentesis. Patient has had two paracentesis in total, Mar 24, and last one was a few weeks ago. 3. Hypomagnesemia - will replete and follow. 4. Hypokalemia - resolved. 5. Patient has history of shingles on Valacyclovir. 6. Patient has metastatic colon cancer. Followup with Dr. Bernal in [place] , he is on palliative therapy. 7. Patient did have hematuria during his stay and has grown VRE in the urine. Repeat culture is negative without antibiotic treatment. Repeat urine was also unremarkable. The patient never had symptoms of urinary tract infection (UTI). 8. Patient has deep venous thrombosis (DVT) prophylaxis in the form of Eliquis. VS,Fishbone, I+O VS, Fishbone, I+O Laboratory Tests 05/01/17 05:38 Red Blood Count 2.92 L, Mean Corpuscular Volume 92.8, Mean Corpuscular Hemoglobin 30.5, Mean Corpuscular Hemoglobin Concent 32.8, Red Cell Distribution Width 17.9 H, Calcium Level 8.6, Aspartate Amino Transf (AST/SGOT) 68 H, Alanine Aminotransferase (ALT/SGPT) 36, Alkaline Phosphatase 462 H, Total Bilirubin 0.5, Total Protein 4.3 L, Albumin 1.8 L Vital Signs Date Time Temp Pulse Resp B/P (MAP) Pulse Ox O2 Delivery O2 Flow Rate FiO2 11/26/17 08:17 18 04/30/17 22:00 Room Air 04/30/17 22:00 97.6 102 107/71 83 98 AIDA SALES MD May 01, 2017 08:47
[2017-05-01] MEDS: oxyCODONE 5MG TAB PO PRN ×2 (12:16→18:15)
[2017-05-01 14:00] VITALS: BP 106/71
[2017-05-01] MEDS: LevoFLOXacin 500 MG TABLET PO SCH (18:14)
[2017-05-01 22:00] VITALS: BP 102/66
[2017-05-02] MEDS: LACTULOSE 20 GM/30 ML SYRUP UD PO SCH ×3 (05:06→17:51)
[2017-05-02] MEDS: SIMETHICONE 80 MG CHEW TAB PO SCH ×3 (05:07→17:51)
[2017-05-02] MEDS: SODIUM CHLORIDE 0.9% INJ 10 ML SYR IV PRN (05:07)
[2017-05-02] MEDS: oxyCODONE 5MG TAB PO PRN ×3 (05:12→19:07)
[2017-05-02 05:24] LABS: MEAN CORPUSCULAR HEMOGLOBIN 30.5 pg (27.0-33.0); MEAN CORPUSCULAR HGB CONC 33.1 g/dl (32.0-36.5); MEAN CORPUSCULAR VOLUME 92.4 fl (80.0-96.0); PLATELET COUNT, AUTOMATED 205 10^3/uL (150-450); WHITE BLOOD COUNT 13.5 10^3/uL (4.0-10.0)
[2017-05-02 06:00] VITALS: BP 112/66
[2017-05-02 06:00] LABS: ANION GAP 11 MEQ/L (8-16); BLOOD UREA NITROGEN 21 MG/DL (7-18); CALCIUM LEVEL 8.6 MG/DL (8.5-10.1); CARBON DIOXIDE LEVEL 24 MEQ/L (21-32); CHLORIDE LEVEL 104 MEQ/L (98-107); CREATININE FOR GFR 1.17 MG/DL (0.70-1.30); GLOMERULAR FILTRATION RATE > 60.0 (>56); GLUCOSE, FASTING 127 MG/DL (70-105); MAGNESIUM LEVEL 1.7 MG/DL (1.8-2.4); POTASSIUM SERUM 3.7 MEQ/L (3.5-5.1); SODIUM LEVEL 139 MEQ/L (136-145)
[2017-05-02] MEDS ORDERED: MAG SULF 1GM/100ML (MAG RUN) 1 GM in APPROPRIATE DILUENT 1 EA IV ONE (07:45)
[2017-05-02] MEDS: MEGESTROL SUSP 400 MG/10 ML UDC PO SCH (08:10)
[2017-05-02] MEDS: oxyCODONE 10 MG CR TAB PO SCH ×2 (08:11→21:27)
[2017-05-02] MEDS: GABAPENTIN 100 MG CAP PO SCH ×2 (08:11→21:27)
[2017-05-02] MEDS: PANTOPRAZOLE 40MG TAB (PROTONIX) PO SCH ×2 (08:11→21:27)
[2017-05-02] MEDS: FERROUS SULFATE 325MG TAB PO SCH (08:11)
[2017-05-02] MEDS: APIXABAN 5 MG TAB (ELIQUIS) PO SCH ×2 (08:11→21:27)
[2017-05-02] MEDS: valACYclovir HCL 500 MG TAB PO SCH (08:11)
[2017-05-02] MEDS: rifAXIMin 550 MG TAB (XIFAXAN) PO SCH ×2 (08:11→21:27)
[2017-05-02] MEDS: ZINC SULFATE 220 MG CAP PO SCH ×2 (08:11→21:26)
[2017-05-02] MEDS: FUROSEMIDE 20 MG TAB PO SCH (08:11)
[2017-05-02] MEDS: SODIUM CHLORIDE 0.9% INJ 10 ML SYR IV SCH (08:12)
--- NOTE | 2017-05-02 08:31 | IPNPDOC ---
Subjective Date Seen The patient was seen on 05/02/17. Subjective Chief Complaint/HPI The patient is a 56-year-old male admitted with a reason for visit of Anasarca; Carcinoma Of Colon Mets To Multiple Sites. No acute complaints or overnight events. Possible paracentesis soon. Constitutional: Denies: Chills, Fever Pulmonary: Denies: Dyspnea, Cough Cardiovascular: Denies: Chest Pain, Edema, Lt Headedness Gastrointestinal: Denies: Nausea, Vomiting Musculoskeletal: Reports: Back Pain Objective Physical Examination General Exam: Positive: Alert, Cooperative, No Acute Distress ENT Exam: Positive: Atraumatic Chest Exam: Positive: Clear to auscultation, Negative: Wheezing Heart Exam: Positive: Rate Normal, Normal S1, Normal S2 Abdomen Exam: Positive: Normal bowel sounds, Soft Extremity Exam: Negative: Edema, Tenderness, Swelling Neuro Exam: Positive: Normal Speech Assessment /Plan Assessment HCAP pneumonia completed 7-day course of vancomycin & Levaquin yesterday 05/01. Pt afebrile and lungs clear on physical exam, WBC trending down Anasarca 2/2 serum protein calorie malnutrition related to underlying colon cancer. Another paracentesis may be warranted in the near future CT abdomen for possible ascites pending Possibly consider albumin supplementation along with paracentesis as well, and monitor bp as well since per pt, he has history of hypotension during procedure. Has been transfused Albumin 10x thus far. Patient has had two paracentesis in total: Mar 24 in other hospital, and last one was ~2 weeks ago here Anemia pt asymptomatic. Hg at 8.4. Monitor for now. Has been transfused PRBC 4x thus far Hypomagnesemia low despite supplementing yesterday, will supplement again today Hx of shingles continue Valacyclovir Metastatic colon cancer f/u with Dr. Bernal in [place] is on palliative therapy Hx of hematuria with VRE in urine repeat culture was negative without antibiotic treatment. Repeat urine was also unremarkable. Pt asymptomatic of UTI DVT ppx: Eliquis. Plan/VTE VTE Prophylaxis Ordered?: Yes VS, I&O, 24H, Fishbone Vital Signs/I&O Vital Signs Date Time Temp Pulse Resp B/P (MAP) Pulse Ox O2 Delivery O2 Flow Rate FiO2 05/02/17 08:11 22 Room Air 05/02/17 06:46 73 92 2.0 05/02/17 06:00 98.0 112/66 (81) Laboratory Data 24H LABS Laboratory Tests 2 05/02/17 05:15: Nucleated Red Blood Cells % (auto) 0.0, Anion Gap 11, Glomerular Filtration Rate > 60.0, Blood Urea Nitrogen 21H, Creatinine 1.17, Sodium Level 139, Potassium Level 3.7, Chloride Level 104, Carbon Dioxide Level 24, Calcium Level 8.6, Magnesium Level 1.7L CBC/BMP Laboratory Tests 05/02/17 05:15 Red Blood Count 2.75 L, Mean Corpuscular Volume 92.4, Mean Corpuscular Hemoglobin 30.5, Mean Corpuscular Hemoglobin Concent 33.1, Red Cell Distribution Width 18.0 H, Calcium Level 8.6 Microbiology Microbiology 04/27/17 Urine Culture - Final, Complete 04/24/17 Urine Culture - Final, Complete Enterococcus Faecium (Vre) GME ATTESTATION GME ATTESTATION My faculty preceptor for this patient encounter was physically present during the encounter and was fully available. All aspects of the patient interview, examination, medical decision making process, and medical care plan development were reviewed and approved by the faculty preceptor. The faculty preceptor is aware and concurs with the plan as stated in the body of this note and will attest to such by his/her cosignature. XANDER SALAS DO May 02, 2017 08:18
[2017-05-02 14:00] VITALS: BP 116/67
--- NOTE | 2017-05-02 14:58 | REP ---
CT ABDOMEN AND PELVIS WITHOUT IV OR ORAL CONTRAST: HISTORY: Evaluate for ascites. Comparison CT study April 28, 2017. FINDINGS: Preliminary digital matrix bath attendant radiographs demonstrate multiple air-fluid levels in scattered colon and possibly small bowel loops throughout the abdomen. This may imply mild ileus. Axial CT images again demonstrate multiple hepatic masses consistent with metastatic disease. Bilateral adrenal masses are again observed. Retrocrural and retroperitoneal lymph node enlargement are seen unchanged. There is lesser sac and subhepatic ascitic fluid essentially unchanged from the recent CT study of April 28, 2017. No lower abdominal or pelvic ascites is visible. No obstructive gastrointestinal tract lesion is seen. There is some diffuse small bowel mesenteric edema unchanged. Pathologic fracture and mixed lytic and sclerotic change again noted in the L2 vertebral body with some loss of vertebral body heights. This is unchanged as well from the study done 4 days ago. Also noted are bilateral small pleural effusions, right larger than left. IMPRESSION: Stable CT findings including fairly widespread metastatic disease and some upper abdominal ascites. Small bilateral pleural effusions. Ileus pattern in the bowel gas. No significant change from April 28, 2017. Signed by Dnenis Tenorio MD 05/02/2017 03:32 P
[2017-05-02 22:00] VITALS: BP 104/66
[2017-05-03] MEDS: LACTULOSE 20 GM/30 ML SYRUP UD PO SCH ×3 (00:06→12:05)
[2017-05-03] MEDS: SIMETHICONE 80 MG CHEW TAB PO SCH ×3 (00:06→12:05)
[2017-05-03 06:00] VITALS: BP 114/72
[2017-05-03] MEDS: oxyCODONE 5MG TAB PO PRN ×2 (06:02→12:06)
[2017-05-03 06:09] LABS: MEAN CORPUSCULAR HEMOGLOBIN 31.1 pg (27.0-33.0); MEAN CORPUSCULAR HGB CONC 33.2 g/dl (32.0-36.5); MEAN CORPUSCULAR VOLUME 93.7 fl (80.0-96.0); PLATELET COUNT, AUTOMATED 217 10^3/uL (150-450); RED CELL DISTRIBUTION WIDTH 18.3 % (11.5-14.5); WHITE BLOOD COUNT 13.3 10^3/uL (4.0-10.0)
[2017-05-03 06:38] LABS: ANION GAP 12 MEQ/L (8-16); BLOOD UREA NITROGEN 19 MG/DL (7-18); CALCIUM LEVEL 8.7 MG/DL (8.5-10.1); CARBON DIOXIDE LEVEL 23 MEQ/L (21-32); CHLORIDE LEVEL 103 MEQ/L (98-107); CREATININE FOR GFR 1.06 MG/DL (0.70-1.30); GLOMERULAR FILTRATION RATE > 60.0 (>56); GLUCOSE, FASTING 103 MG/DL (70-105); MAGNESIUM LEVEL 1.9 MG/DL (1.8-2.4); POTASSIUM SERUM 3.6 MEQ/L (3.5-5.1); SODIUM LEVEL 138 MEQ/L (136-145)
[2017-05-03] MEDS: ZINC SULFATE 220 MG CAP PO SCH (08:15)
[2017-05-03] MEDS: rifAXIMin 550 MG TAB (XIFAXAN) PO SCH (08:16)
[2017-05-03] MEDS: GABAPENTIN 100 MG CAP PO SCH (08:16)
[2017-05-03] MEDS: APIXABAN 5 MG TAB (ELIQUIS) PO SCH (08:16)
[2017-05-03] MEDS: FUROSEMIDE 20 MG TAB PO SCH (08:16)
[2017-05-03] MEDS: valACYclovir HCL 500 MG TAB PO SCH (08:16)
[2017-05-03] MEDS: PANTOPRAZOLE 40MG TAB (PROTONIX) PO SCH (08:16)
[2017-05-03] MEDS: FERROUS SULFATE 325MG TAB PO SCH (08:16)
[2017-05-03] MEDS: MEGESTROL SUSP 400 MG/10 ML UDC PO SCH (08:17)
[2017-05-03] MEDS: SODIUM CHLORIDE 0.9% INJ 10 ML SYR IV SCH (08:17)
[2017-05-03] MEDS: oxyCODONE 10 MG CR TAB PO SCH (08:18)
[2017-05-03] MEDS ORDERED: FERR1TAB8 PO (11:45)
[2017-05-03] MEDS ORDERED: XIFA550T PO (11:45)
[2017-05-03] MEDS ORDERED: FURO20TA2 PO (11:45)
[2017-05-03] MEDS ORDERED: ELIQ5TAB PO (11:45)
[2017-05-03] MEDS ORDERED: OXYC-141 PO ×2 (12:14→12:25)
[2017-05-03] MEDS: SODIUM CHLORIDE 0.9% INJ 10 ML SYR IV PRN (12:27)
--- NOTE | 2017-05-13 21:09 | DS.PDOC ---
Discharge Summary General Date of Admission Apr 11, 2017 at 18:32 Date of Discharge 05/03/17 Attending Physician: AIDA SALES MD Discharge Summary PROCEDURES PERFORMED DURING STAY: * Paracentesis, 04/15/17 ADMITTING DIAGNOSES: Left upper extremity DVT Anasarca Acute Renal Failure Leukocytosis Tachycardia DISCHARGE DIAGNOSES: Left upper extremity DVT Anasarca Acute Renal Failure Leukocytosis Tachycardia Stage IV colon cancer with ascites and metastasis, stage 4 terminal HTN Hx of shingles CKD stage 2 Anemia COMPLICATIONS/CHIEF COMPLAINT: Anasarca;Carcinoma Of Colon Mets To Multiple Sites. HISTORY OF PRESENT ILLNESS: 56 yo M presented to ED because his family noticed generalized swelling. Despite being started on Spironolactone by his Hvac Lead 1 week prior to admission, his swelling of b/l LE and left arm continued. PT had US done of upper extremity 5 days prior to admission at [facility] and was negative for DVT. The past few days prior to admission, swelling increased with weeping fluids and redness of both legs. Associated with fatigue and lower extremity heaviness. He was unable to lift them to walk. Family also noticed episodes of confusion with his close in medications and so, brought him to the ED. In the ED, patient had generalized anasarca, and ultrasound of left upper extremity revealed DVT of left brachial vein. Patient also had ARF with Cr 1.6. Patient also had leukocytosis, but had been on steroids for the past month. CT of chest revealed bilateral pleural effusions and atelectasis and lymphadenopathy. CT of abdomen & pelvis reveal infiltration of multiple lymph nodes in loculated fluid, but no ascites. HOSPITAL COURSE: Patient was started on Lovenox for brachial vein DVT. For anasarca, patient was started on Lasix. For his confusion, CT scan of brain showed no acute concerns. Pt started on Lactulose for elevated ammonia levels. Pt was continued on Valacyclovir for shingles. Pt had leukocytosis, likely 2/2 long steroid use and abdominal fluid. Antibiotics were started. Pt had chronic pain, treated with Oxycodone. MRI report revealed adrenal and liver mets, likely contributing to anasarca. Abdominal ascites drainage pooled 4L. Pt was anemic and transfused 2U after drained. nephrology was consulted due to his LUISA. It was discussed with pt and that he has stage 4 terminal cancer and that he is not a good candidate for chemo due to multisystem failure, as discussed with his Oncology team in in [place]. Family requested to continue with treatment. Hospice was discussed but turned down by family. Pt was transferred to ICU and required additional blood transfusions. Pt was also transfused multiple bottles of albumin due to hypoalbuminemia. Due to leukocytosis, ID Dr. Fierro was consulted. DISCHARGE MEDICATIONS: Please see below. ALLERGIES: Please see below. PHYSICAL EXAMINATION ON DISCHARGE: VITAL SIGNS: Please see below. GENERAL: NAD, comfortable HEENT: normocephalic, atraumatic, edentulous CARDIOVASCULAR EXAMINATION: RRR, normal S1,S2 RESPIRATORY EXAMINATION: CTAB ABDOMINAL EXAMINATION: soft, distended, tympanic, nontender, +BS EXTREMITIES: no edema, tenderness, swelling NEUROLOGICAL EXAMINATION: PSYCHIATRIC EXAMINATION: A&Ox3 LABORATORY DATA: Please see below. IMAGING: * 04/11/[address]: 1. Small vessel ischemic disease. 2. Minimal volume loss. * 04/11/17 CXR: 1. Hypoinflation with elevated right diaphragm. Some underlying interstitial fibrotic changes and bibasilar patchy atelectasis or infiltrates. On the right adjacent to the elevated diaphragm and on the left lateral to the left heart border. 2. No gross cardiomegaly for portable technique with hypoinflation. 3. No shoshana edema. There is a calcified tortuous aorta but without aneurysm. Airway intact. * 04/11/[address]: 1. Interval development bilateral effusions with compressive atelectasis or consolidative infiltrate right lower lobe. Minimal atelectatic changes deep sulcus left lower lobe. The effusion is small on the right, trace on the left, but both new since the previous study. Underlying fibrosis, COPD, and dependent atelectatic changes with a few scattered tiny nodules. 2. Mediastinal adenopathy with precarinal node up to 2 cm, right paratracheal nodes up to 1.3 cm. 3. The bones without acute finding. 4. Cardiomegaly without pericardial thickening or effusion. 5. Supraclavicular adenopathy on the left. * 04/11/17 CT Abd/Pelvis: 1. Massive fluid collection in the lesser sac measuring 27 x 25 x 11 cm. This is not accompanied by any significant ascites around the liver or spleen, peritoneal gutters or elsewhere. There is very minimal infiltration of the mesenteric but there are lymph nodes, periaortic, aortocaval and others in the retroperitoneum and upper abdomen. No focal splenic lesion or splenomegaly with the liver difficult to evaluate because of spray artifact from the arms unable to be raised. Calcified stone in its dependent portion of the gallbladder. The massive fluid collection in the lesser sac is likely related to the known prior malignancy. Some also seen around the pancreatic bed and adjacent to the medial aspect of the liver. All of this is loculated fluid, not free-flowing ascites. 2. Mesenteric, periaortic and other retroperitoneal adenopathy as described. The largest is periaortic at 2.2 cm. 3. No renal, ureteral or bladder stone or hydronephrosis. Bladder distended and without wall thickening, stone or mass. There is another small loculated fluid collection left lower quadrant anterior abdominal wall about 6 cm. 4. Anastomotic sutures right upper quadrant. 5. Anasarca. * 04/11/17 Doppler Left Upper Extremity: Occlusive venous thrombosis of one of the left brachial veins. Otherwise negative left upper extremity duplex venous scan. * 04/13/[address]: Massive fluid collection in the lesser sac, unchanged. Marked mesenteric and retroperitoneal adenopathy, unchanged. No bowel distension or obstruction. * 04/14/17 Liver US: Poor quality study. There is a large focal fluid collection in the upper abdomen corresponding to the large fluid collection in the lesser sac on the comparison CT. * 04/24/17 CXR: New right lower lobe infiltrate. * 04/24/17 CT Abd/Pelvis: Diffuse metastatic disease in the abdomen as discussed in detail above. Loculated areas of fluid have decreased since prior study status post ultrasound guided drainage. Tiny lung nodules are present. There are bibasilar effusions and infiltrates/atelectasis. No evidence of bowel obstruction. * 04/28/17 CT Abd/Pelvis: 1. No significant change from prior examination. Diffuse metastatic disease including hepatic metastases, adrenal metastases, retroperitoneal adenopathy, and pathologic compression fracture at L2 remains stable. 2. Stable fluid collections and mesenteric edema. 3. Bilateral pleural effusions and lower lobe consolidations unchanged. 4. Further chronic findings as described above. No obvious new acute process when compared to . * 04/29/17 Doppler Right Lower Extremity: No evidence for deep venous thrombosis of the right lower extremity. * 05/02/17 CT Abd/Pelvis: Stable CT findings including fairly widespread metastatic disease and some upper abdominal ascites. Small bilateral pleural effusions. Ileus pattern in the bowel gas. No significant change from April 28, 2017. PROGNOSIS: poor ACTIVITY: As tolerated DIET: 2g sodium DISPOSITION: Home DISCHARGE INSTRUCTIONS: 1. F/u with PCP Dr. Gloria on 05/11 2. Continue following with oncologist Dr. Tesfaye at [facility] for palliation DISCHARGE CONDITION: Stable TIME SPENT ON DISCHARGE: Greater than 60 minutes. Vital Signs/I&Os Vital Signs Date Time Temp Pulse Resp B/P (MAP) Pulse Ox O2 Delivery O2 Flow Rate FiO2 05/03/17 06:02 16 Room Air 05/03/17 06:00 99.8 92 114/72 (86) 96 05/02/17 06:46 2.0 Laboratory Data Labs 24H Laboratory Tests 2 05/03/17 05:56: Nucleated Red Blood Cells % (auto) 0.0, Anion Gap 12, Glomerular Filtration Rate > 60.0, Blood Urea Nitrogen 19H, Creatinine 1.06, Sodium Level 138, Potassium Level 3.6, Chloride Level 103, Carbon Dioxide Level 23, Calcium Level 8.7, Magnesium Level 1.9 CBC/BMP Laboratory Tests 05/03/17 05:56 Red Blood Count 2.70 L, Mean Corpuscular Volume 93.7, Mean Corpuscular Hemoglobin 31.1, Mean Corpuscular Hemoglobin Concent 33.2, Red Cell Distribution Width 18.3 H, Calcium Level 8.7 Microbiology Microbiology 04/27/17 Urine Culture - Final, Complete 04/24/17 Urine Culture - Final, Complete Enterococcus Faecium (Vre) Discharge Medications Scheduled (Lonsurf 20-8.19 mg) 1 Tab Tab, 1 TAB PO BID, (Reported) HAS NOT STARTED TAKING YET Apixaban Base (Eliquis) 5 Mg Tab, 5 MG PO BID Ferrous Sulfate (Ferrous Sulfate) 325 Mg Tab, 325 MG PO DAILY Furosemide (Furosemide) 20 Mg Tab, 20 MG PO DAILY Gabapentin (Gabapentin) 300 Mg Cap, 300 MG PO TID, (Reported) Megestrol Acetate (Megestrol Acetate) 400 Mg/10 Ml Farideh, 20 ML PO DAILY, ( Reported) Multivitamins *[facility] STOCKED* (Thera M Plus *[facility] STOCK[facility]*) 1 Tab Tab, 1 TAB PO DAILY, (Reported) Oxycodone HCl (Oxycontin) 10 Mg Tab, 10 MG PO BID, (Reported) Oxycodone HCl (Oxycontin) 10 Mg Tab, 10 MG PO BID Pantoprazole Sodium Sesquihydr (Protonix) 40 Mg Tab, 40 MG PO BID, (Reported) Rifaximin (Xifaxan) 550 Mg Tab, 550 MG PO BID Spironolactone (Spironolactone) 50 Mg Tab, 50 MG PO BID, (Reported) Valacyclovir HCl (Valacyclovir HCl) 1 Gm Tab, 1 GM PO DAILY, (Reported) Scheduled PRN Ondansetron HCl (Zofran) 8 Mg Tab, 8 MG PO TID PRN for NAUSEA, (Reported) Allergies Coded Allergies: Fentanyl (Verified Adverse Reaction, Intermediate, [facility], 04/11/17) says it makes him "looney" GME ATTESTATION GME ATTESTATION My faculty preceptor for this patient encounter was physically present during the encounter and was fully available. All aspects of the patient interview, examination, medical decision making process, and medical care plan development were reviewed and approved by the faculty preceptor. The faculty preceptor is aware and concurs with the plan as stated in the body of this note and will attest to such by his/her cosignature. XANDER SALAS DO May 03, 2017 07:52
== END 2017-05-03 13:18 | disposition home or self-care (01) | DRG 374 ==
LOC: M ED 12:16 → EDBD 12:16 → M ED INP 18:32 → M MSPAV 20:32 → M PCU 04-16 22:55 → M MSPAV 04-23 18:35
PROVIDERS: ADMIT Internal Medicine Nephrology; ATTEND Internal Medicine
PROC: 0W9G3ZZ Drainage of Peritoneal Cavity, Percutaneous Approach (ICD-10-PCS; 2017-04-15)
PROC: 30253N1 (ICD-10-PCS; principal; 2017-04-16)
PROC: 30253J1 (ICD-10-PCS; 2017-04-16)
DX: C18.9 Malignant neoplasm of colon, unspecified (principal); G93.41 Metabolic encephalopathy; E43 Unspecified severe protein-calorie malnutrition; J18.9 Pneumonia, unspecified organism; I82.622 Acute embolism and thrombosis of deep veins of left upper extremity; C77.2 Secondary and unspecified malignant neoplasm of intra-abdominal lymph nodes; C77.1 Secondary and unspecified malignant neoplasm of intrathoracic lymph nodes; N17.9 Acute kidney failure, unspecified; C78.7 Secondary malignant neoplasm of liver and intrahepatic bile duct; C79.51 Secondary malignant neoplasm of bone; C79.70 Secondary malignant neoplasm of unspecified adrenal gland; E87.6 Hypokalemia; N18.2 Chronic kidney disease, stage 2 (mild); I89.8 Other specified noninfective disorders of lymphatic vessels and lymph nodes; R31.9 Hematuria, unspecified; D64.9 Anemia, unspecified; R53.1 Weakness; I12.9 Hypertensive chronic kidney disease with stage 1 through stage 4 chronic kidney disease, or unspecified chronic kidney disease; K72.90 Hepatic failure, unspecified without coma; E83.42 Hypomagnesemia; B02.9 Zoster without complications; K59.00 Constipation, unspecified; Z90.49 Acquired absence of other specified parts of digestive tract; Z92.21 Personal history of antineoplastic chemotherapy; Z88.5 Allergy status to narcotic agent; Z79.891 Long term (current) use of opiate analgesic; Z79.899 Other long term (current) drug therapy; Y95 Nosocomial condition